=== PATIENT | female | born 1950 | race American Indian/Alaskan Native ===

== ENCOUNTER 2017-01-06 21:35 | Emergency (ER) | payer OTHER ==
[2017-01-06] MEDS ORDERED: Aspirin 81 MG Tab.Chew PO ONE (21:45)
[2017-01-06 21:57] VITALS: BP 105/85
[2017-01-06 22:18] LABS: CHLORIDE,CL 111 mmol/L (101-111); SODIUM,NA 142 mmol/L (135-145)
[2017-01-06] MEDS ORDERED: Iopamidol 612 MG/ML 75 ML Bottle IVPUSH ONE (23:00)
[2017-01-06] MEDS ORDERED: Ondansetron 4 MG/2 ML SDV IV ONE (23:38)
[2017-01-06] MEDS ORDERED: Famotidine 20 MG/2 ML SDV IVPUSH ONE (23:38)
[2017-01-06] MEDS ORDERED: Morphine 4 MG/ML Syringe IVPUSH ONE (23:38)
--- NOTE | 2017-01-07 00:11 | EDM.PDOC ---
ED HPI GENERAL MEDICAL PROBLEM - General Chief Complaint: Abdominal Pain Stated Complaint: ABD PAINS/CHEST, [id number] Time Seen by Provider: 01/06/17 22:00 Source of Information: Reports: Patient History Limitations: Reports: No Limitations - History of Present Illness INITIAL COMMENTS - FREE TEXT/NARRATIVE: Presents with c/o intermittent abdominal pain for past week, worse tonight, describes mid abdomen radiating to epigastric area, slight nausea Duration: Week(s): Location: Reports: Abdomen Quality: Reports: Ache Severity: Moderate Worsens with: Reports: Movement Epigastric Pain Score (Numeric/FACES): 10 - Related Data Allergies Allergy/AdvReac Type Severity Reaction Status Date / Time No Known Allergies Allergy Verified 01/06/17 21:53 Home Meds: Home Meds Albuterol [Proventil HFA] 2 puff INH ASDIRECTED PRN 06/28/15 [History] Nebulizer [Inspiration] 2 puff INH DAILY PRN 06/30/15 [History] Nepafenac [Nevanac] 1 drop EYERT ASDIRECTED 01/01/16 [History] Ofloxacin [Floxin 0.3% Otic Soln] 1 drop EYERT ASDIRECTED 01/01/16 [History] prednisoLONE Acetate [Pred Forte 1% Ophth Susp] 1 drop EYERT ASDIRECTED [History] Levothyroxine [Synthroid] 88 mcg PO DAILY 01/02/16 [History] Polyvinyl Alcohol/Povidone [Artificial Tears Drops] 1 drop EYEBOTH ASDIRECTED PRN 03/04/16 [History] Past Medical History HEENT History: Reports: Cataract, Impaired Vision, Other (See Below) Other HEENT History: RETINAL DETACHMENT - BILATERAL EYES; WEARS GLASSES Cardiovascular History: Reports: CAD, High Cholesterol, Hypertension Respiratory History: Reports: Asthma Gastrointestinal History: Reports: None Other Gastrointestinal History: Faatty liver Genitourinary History: Reports: None 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: Musculoskeletal History: Reports: None Neurological History: Reports: None Psychiatric History: Reports: None Endocrine/Metabolic History: Reports: Diabetes, Type II, Hypothyroidism, Obesity /BMI 30+ Hematologic History: Reports: Anemia Immunologic History: Reports: None Oncologic (Cancer) History: Reports: Other (See Below) Other Oncologic History: PRECANCEROUS CERVICAL POLYP REMOVED Dermatologic History: Reports: None - Infectious Disease History Infectious Disease History: Reports: Chicken Pox, Measles - Past Surgical History Head Surgeries/Procedures: Reports: None HEENT Surgical History: Reports: Detached Retina Respiratory Surgical History: Reports: None Female Surgical History: Reports: Tubal Ligation Neurological Surgical History: Reports: None Dermatological Surgical History: Reports: Skin Graft, Other (See Below) Social & Family History - Tobacco Use Smoking Status *Q: Light Tobacco Smoker Years of Tobacco use: 15 Packs/Tins Daily: 0.1 - Caffeine Use Caffeine Use: Reports: Coffee, Soda, Tea - Recreational Drug Use Recreational Drug Use: No Drug Use in Last 12 Months: No ED ROS GENERAL - Review of Systems Review Of Systems: See Below Constitutional: Reports: No Symptoms HEENT: Reports: No Symptoms Respiratory: Reports: No Symptoms Cardiovascular: Reports: No Symptoms GI/Abdominal: Reports: Abdominal Pain. Denies: Constipation, Diarrhea, Hematemesis, Vomiting Skin: Reports: No Symptoms Neurological: Reports: No Symptoms Psychiatric: Reports: No Symptoms ED EXAM, GI/ABD - Physical Exam Exam: See Below Exam Limited By: No Limitations General Appearance: Alert, No Apparent Distress Eyes: Bilateral: EOMI (mild sclera icterus) Ears: Normal External Exam, Normal TMs Nose: Normal Inspection Throat/Mouth: Normal Inspection Head: Atraumatic, Normocephalic Neck: Normal Inspection Respiratory/Chest: No Respiratory Distress, Lungs Clear, Normal Breath Sounds Cardiovascular: Regular Rate, Rhythm GI/Abdominal Exam: Normal Bowel Sounds, Soft, Tender, Hepatomegaly Extremities: Normal Inspection, Normal Range of Motion Neurological: Alert, Oriented, Normal Cognition, Normal Gait Psychiatric: Normal Affect, Normal Mood Skin Exam: Warm, Dry, Intact, Normal Color (no jaundice tone to skin) Course - Vital Signs Last Recorded V/S: Last Vital Signs Temp 98.2 F 01/06/17 21:54 Pulse 75 01/06/17 21:54 Resp 18 01/06/17 21:54 BP 105/85 01/06/17 21:54 Pulse Ox 97 01/06/17 21:54 - Orders/Labs/Meds Orders: Active Orders 24 hr Category Date Time Status EKG 12 Lead [EKG Documentation Completion] [RC] URGENT Care 01/06/17 21:46 Active Labs: Laboratory Tests 08/07/17 08/07/17 08/07/17 Range/Units 21:49 21:49 21:49 WBC 6.5 (5.0-10.0) 10^3/uL RBC 3.90 L (4.2-5.4) 10^6/uL Hgb 13.9 (12.0-16.0) g/dL Hct 39.1 (37.0-47.0) % MCV 100.3 H (80-100) fL MCH 35.6 H (27.0-34.0) pg MCHC 35.5 H (33.0-35.0) g/dL Plt Count 96 L (150-450) 10^3/uL Neut % (Auto) 38.6 L (42.2-75.2) % Lymph % (Auto) 40.3 (20.5-50.1) % Knox % (Auto) 12.0 H (2-8) % Eos % (Auto) 8.0 H (1.0-3.0) % Baso % (Auto) 1.1 H (0.0-1.0) % PT (9.0-12.0) SEC INR (0.9-1.2) D-Dimer, Quantitative (0-400) ng/mL Sodium 142 (135-145) mmol/L Potassium 3.2 L (3.6-5.0) mmol/L Chloride 111 (101-111) mmol/L Carbon Dioxide 22.0 (21.0-31.0) mmol/L Anion Gap 12.2 BUN 5 L (7-18) mg/dL Creatinine 0.6 (0.6-1.3) mg/dL Est Cr Clr Drug Dosing 92.11 mL/min Estimated GFR (MDRD) > 60 BUN/Creatinine Ratio 8.33 Glucose 95 (74-105) mg/dL Calcium 8.7 (8.4-10.2) mg/dl Total Bilirubin 5.2 H (0.2-1.0) mg/dL AST 59 H (10-42) IU/L ALT 26 (10-60) IU/L Alkaline Phosphatase 220 H (42-121) IU/L CK-MB (CK-2) 3.10 (0.4-4.7) ng/mL Troponin I 0.04 H* (0.00-0.02) ng/ml Total Protein 6.8 (6.7-8.2) g/dl Albumin 2.8 L (3.2-5.5) g/dl Globulin 4.0 Albumin/Globulin Ratio 0.70 Amylase 68 (28-100) U/L Lipase 61 H (22-51) U/L Urine Color (YELLOW) Urine Appearance (CLEAR) Urine pH (5.0-9.0) Ur Specific [place] (1.005-1.030) Urine Protein (NEGATIVE) Urine Glucose (UA) (NEGATIVE) Urine Ketones (NEGATIVE) Urine Occult Blood (NEGATIVE) Urine Nitrite (NEGATIVE) Urine Bilirubin (NEGATIVE) Urine Urobilinogen (0.2-1.0) mg/dL Ur Leukocyte Esterase (NEGATIVE) Urine RBC /HPF Urine WBC (0-5/HPF) /HPF Ur Epithelial Cells /HPF Urine Bacteria (0-FEW/HPF) /HPF Urine Mucus /LPF 01/06/17 01/06/17 Range/Units 21:49 23:27 WBC (5.0-10.0) 10^3/uL RBC (4.2-5.4) 10^6/uL Hgb (12.0-16.0) g/dL Hct (37.0-47.0) % MCV (80-100) fL MCH (27.0-34.0) pg MCHC (33.0-35.0) g/dL Plt Count (150-450) 10^3/uL Neut % (Auto) (42.2-75.2) % Lymph % (Auto) (20.5-50.1) % Knox % (Auto) (2-8) % Eos % (Auto) (1.0-3.0) % Baso % (Auto) (0.0-1.0) % PT 15.0 H (9.0-12.0) SEC INR 1.5 H (0.9-1.2) D-Dimer, Quantitative 3480 H (0-400) ng/mL Sodium (135-145) mmol/L Potassium (3.6-5.0) mmol/L Chloride (101-111) mmol/L Carbon Dioxide (21.0-31.0) mmol/L Anion Gap BUN (7-18) mg/dL Creatinine (0.6-1.3) mg/dL Est Cr Clr Drug Dosing mL/min Estimated GFR (MDRD) BUN/Creatinine Ratio Glucose (74-105) mg/dL Calcium (8.4-10.2) mg/dl Total Bilirubin (0.2-1.0) mg/dL AST (10-42) IU/L ALT (10-60) IU/L Alkaline Phosphatase (42-121) IU/L CK-MB (CK-2) (0.4-4.7) ng/mL Troponin I (0.00-0.02) ng/ml Total Protein (6.7-8.2) g/dl Albumin (3.2-5.5) g/dl Globulin Albumin/Globulin Ratio Amylase (28-100) U/L Lipase (22-51) U/L Urine Color Yellow (YELLOW) Urine Appearance Clear (CLEAR) Urine pH 7.0 (5.0-9.0) Ur Specific [place] 1.010 (1.005-1.030) Urine Protein Negative (NEGATIVE) Urine Glucose (UA) Negative (NEGATIVE) Urine Ketones Negative (NEGATIVE) Urine Occult Blood Negative (NEGATIVE) Urine Nitrite Negative (NEGATIVE) Urine Bilirubin Negative (NEGATIVE) Urine Urobilinogen 2.0 H (0.2-1.0) mg/dL Ur Leukocyte Esterase Negative (NEGATIVE) Urine RBC 0-5 /HPF Urine WBC 0-5 (0-5/HPF) /HPF Ur Epithelial Cells Occasional /HPF Urine Bacteria Few (0-FEW/HPF) /HPF Urine Mucus Few H /LPF Meds: Medications Discontinued Medications Generic Name Dose Route Start Last Admin Trade Name Freq PRN Reason Stop Dose Admin Aspirin 324 mg 01/06/17 21:45 01/06/17 22:00 Aspirin PO 01/06/17 21:46 324 mg ONETIME ONE Administration Famotidine 20 mg 01/06/17 23:38 01/07/17 00:06 Pepcid IVPUSH 01/06/17 23:39 20 mg ONETIME ONE Administration Hydromorphone HCl 1 mg 01/07/17 00:42 01/07/17 00:50 Dilaudid IVPUSH 01/07/17 00:43 1 mg ONETIME ONE Administration Iopamidol 75 ml 01/06/17 23:00 Isovue-300 (61%) IVPUSH 01/06/17 23:01 ONETIME ONE Morphine Sulfate 4 mg 01/06/17 23:38 01/07/17 00:05 Morphine IVPUSH 01/06/17 23:39 4 mg ONETIME ONE Administration Ondansetron HCl 4 mg 01/06/17 23:38 01/07/17 00:06 Zofran IV 01/06/17 23:39 4 mg ONETIME ONE Administration Oxycodone HCl Confirm 01/07/17 00:33 01/07/17 01:15 Oxycodone Administered 01/07/17 00:34 Not Given Dose 10 mg .ROUTE .STK-MED ONE - Radiology Interpretation Free Text/Narrative:: Moderate amount ascites, Cirrhotic liver - Re-Assessments/Exams Free Text/Narrative Re-Assessment/Exam: 01/07/17 04:[address] Delgado Burns regarding patient. Staus and labs reviewed. Recommend patient present to ED in am for further evaluation. Departure - Departure Time of Disposition: 00:13 Disposition: Home, Self-Care 01 Condition: Fair Clinical Impression: Abdominal pain Qualifiers: Abdominal location: generalized Qualified Code(s): R10.84 - Generalized abdominal pain Liver failure Qualifiers: Liver failure chronicity: unspecified chronicity Hepatic coma status: without hepatic coma Qualified Code(s): K72.90 - Hepatic failure, unspecified without coma - Discharge Information Instructions: Liver Failure Forms: ED Department Discharge - My Orders Last 24 Hours: My Active Orders 01/06/17 21:46 EKG 12 Lead [EKG Documentation Completion] [RC] URGENT - Assessment/Plan Last 24 Hours: My Active Orders 01/06/17 21:46 EKG 12 Lead [EKG Documentation Completion] [RC] URGENT
[2017-01-07] MEDS ORDERED: oxyCODONE 5 MG Tab PO ONE (00:33)
[2017-01-07] MEDS ORDERED: oxyCODONE 5 MG Tab ONE (00:33)
[2017-01-07] MEDS ORDERED: HYDROmorphone 1 MG/ML Syringe IVPUSH ONE (00:42)
--- NOTE | 2017-01-08 10:57 | EKG ---
01/06/2017- SURJIT JIMENEZ - EKG per my reading shows sinus rhythm at a rate of [address] [facility] /[id number]
== END 2017-01-07 01:16 | disposition home or self-care (01) ==
LOC: DL.ED 21:35
DX: K72.90 Hepatic failure, unspecified without coma (principal); H54.7 Unspecified visual loss; E78.00 Pure hypercholesterolemia, unspecified; I10 Essential (primary) hypertension; J45.909 Unspecified asthma, uncomplicated; E11.9 Type 2 diabetes mellitus without complications; E03.9 Hypothyroidism, unspecified; E66.9 Obesity, unspecified; F17.210 Nicotine dependence, cigarettes, uncomplicated; Z98.51 Tubal ligation status; Z79.899 Other long term (current) drug therapy
CPT/HCPCS: 36415; 71010; 74177; 80053; 81001; 82150; 82553; 83690; 84484; 85025; 85379; 85610; 93005; 93010; 96374; 96375; 99285; A9270; J1170; J2270; J2405; Q9967; 99284; S0028

== ENCOUNTER 2017-03-11 06:00 | Day surgery (SDC) | payer OTHER ==
[~2017-03-11 06:00] MED LIST: Dextrose 5%-0.45% NaCl 1,000 ML IV SCH; Sodium Chloride 0.9% 10 ML Syringe FLUSH PRN
[2017-03-11] MEDS ORDERED: Midazolam 1 MG/ML 2 ML SDV IV ONE ×3 (06:01→07:47)
[2017-03-11] MEDS ORDERED: fentaNYL 100 MCG/2 ML SDV IV ONE ×3 (06:01→07:45)
[2017-03-11] MEDS ORDERED: fentaNYL 100 MCG/2 ML SDV ONE (06:15)
[2017-03-11] MEDS ORDERED: Midazolam 1 MG/ML 2 ML SDV ONE (06:15)
--- NOTE | 2017-03-11 08:31 | OR ---
DATE: 03/11/2017 PROCEDURE: Esophagogastroduodenoscopy and multiple pinch biopsies. INSTRUMENT USED: GIF-H180 Olympus video panendoscope. PREMEDICATIONS: No oral topical anesthesia used. Fentanyl 100 mcg intravenous, Versed 1.5 mg intravenous. The procedure was done under pulse oximetry, BP recording, and personnel clerk. INDICATION: The patient with known primary biliary cholangitis with dyspepsia, unexplained, and not responsive to medical measures, on PPI. Esophagogastroduodenoscopy is performed for detection of any active erosive lesions, malignancy also under consideration, H. pylori status to be determined, any evidence of varices to be detected, endoscopic hemostasis therapy if needed. DESCRIPTION OF PROCEDURE: The scope was passed with ease. Adequate visualization of the esophagus was made from proximal to distal areas. No upper esophageal lesions identified. No distal esophageal stricture. Small uphill esophageal varices were noted without bleeding from them. No polyp or tumor mass identified. No erosive changes were noted by [place] criteria. The Z- line was seen at around 40 cm distal to the oral verge, configuration consistent with grade 1 by ZAP classification. No proximal gastric varices noted. Gastric fundus examination by retroflexion showed no polypoid lesions. No gastric ulcer, malignant mass or vascular ectasia identified. Duodenal bulb showed no ulcer. Visualized second part of the duodenum was unremarkable. Multiple pinch biopsies were taken from the gastric antrum and proximal body and sent for PyloriTek for H. pylori and if negative in an hour, tissue is to be sent for histopathology. No bleeding was noted from any of the visualized areas at the completion of the examination. Photographs were taken of the duodenal bulb, gastric antrum, fundus, and distal esophagus IMPRESSION: Small uphill distal esophageal varices. The patient tolerated the procedure well. [facility] /[id number]
--- NOTE | 2017-03-11 09:27 | LETTER ---
03/11/2017 Paula Menjivar MD [facility] [address] [place] [address] RE: JOSEY PATRICK : [address] Menjivar: Ms. Josey Patrick had esophagogastroduodenoscopy done this morning and she tolerated the procedure well. She does have small distal uphill esophageal varices. Propranolol 10 mg p.o. q.12 hours to be considered with monitor of blood pressure as well as heart rate, management of esophageal varices related to portal hypertension. I herewith send a copy of the endoscopy note and photographs for your review. Thank you. Sincerely, [facility] /[id number]
[2017-03-11 09:53] VITALS: BP 104/55
== END 2017-03-11 09:59 | disposition home or self-care (01) ==
LOC: DL.ENDO 06:00
PROVIDERS: ATTEND Internal Medicine Gastroenterology
DX: I85.00 Esophageal varices without bleeding (principal); K83.0 Cholangitis; E03.9 Hypothyroidism, unspecified; E11.9 Type 2 diabetes mellitus without complications; I10 Essential (primary) hypertension; F17.200 Nicotine dependence, unspecified, uncomplicated; E78.5 Hyperlipidemia, unspecified; J45.909 Unspecified asthma, uncomplicated; D68.8 Other specified coagulation defects; D64.9 Anemia, unspecified
CPT/HCPCS: 43239; 87077; J2250; J3010; J7042

== ENCOUNTER 2017-07-16 20:55 | Emergency (ER) | payer MEDICAID, OTHER ==
[2017-07-16 22:30] LABS: CHLORIDE,CL 102 mmol/L (101-111); SODIUM,NA 131 mmol/L (135-145)
--- NOTE | 2017-07-16 23:19 | EDM.PDOC ---
ED HPI GENERAL MEDICAL PROBLEM - General Chief Complaint: Genitourinary Problem Stated Complaint: CAME BY AMBULANCE, GENERAL Time Seen by Provider: 07/16/17 21:10 Source of Information: Reports: Patient History Limitations: Reports: No Limitations - History of Present Illness INITIAL COMMENTS - FREE TEXT/NARRATIVE: ED with c/o blood in urine that started this am. Seems worse this sandoval and last void had some burning. Hx liver failure, notes abdomen some larger. - Related Data Allergies Allergy/AdvReac Type Severity Reaction Status Date / Time acetaminophen Allergy Other Verified 03/11/17 06:41 Home Meds: Home Meds Polyvinyl Alcohol/Povidone [Artificial Tears Drops] 1 drop EYEBOTH ASDIRECTED PRN 03/04/16 [History] Albuterol [Proventil HFA] 2 puff INH Q6H PRN 03/10/17 [History] Levothyroxine [Synthroid] 1 tab PO ACBREAKFAST 03/10/17 [History] Pantoprazole Sodium 1 tab PO BIDMEALS 03/10/17 [History] Spironolactone [Aldactone] 1 tab PO DAILY 03/10/17 [History] Furosemide [Furosemide] 1 tab PO DAILY 07/16/17 [History] Past Medical History HEENT History: Reports: Cataract, Impaired Vision, Other (See Below) Other HEENT History: RETINAL DETACHMENT - BILATERAL EYES; WEARS GLASSES Cardiovascular History: Reports: CAD, High Cholesterol, Hypertension Respiratory History: Reports: Asthma Gastrointestinal History: Reports: None, Cirrhosis, Other (See Below) Other Gastrointestinal History: Faatty liver. 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 Immunologic History: Reports: None Oncologic (Cancer) History: Reports: Other (See Below) Other Oncologic History: PRECANCEROUS CERVICAL POLYP REMOVED Dermatologic History: Reports: None, Other (See Below) Other Dermatologic History: TINEA PEDIS - Infectious Disease History Infectious Disease History: Reports: Chicken Pox, Measles - Past Surgical History Head Surgeries/Procedures: Reports: None HEENT Surgical History: Reports: Detached Retina Cardiovascular Surgical History: Reports: Other (See Below) Other Cardiovascular Surgeries/Procedures: CARDIAC CATHETERIZATION Respiratory Surgical History: Reports: None GI Surgical History: Reports: Cholecystectomy, Colonoscopy, EGD Female Surgical History: Reports: Tubal Ligation Neurological Surgical History: Reports: None Musculoskeletal Surgical History: Reports: Other (See Below) Other Musculoskeletal Surgeries/Procedures:: RIGHT ANKLE SURGERY; RIGHT BUNIOECTOMY Oncologic Surgical History: Reports: None Dermatological Surgical History: Reports: Skin Graft, Other (See Below) Social & Family History - Tobacco Use Smoking Status *Q: Current Status Unknown Years of Tobacco use: 15 Packs/Tins Daily: 0.1 - Caffeine Use Caffeine Use: Reports: Coffee, Soda, Tea - Recreational Drug Use Recreational Drug Use: No Drug Use in Last 12 Months: No ED ROS GENERAL - Review of Systems Review Of Systems: See Below Constitutional: Reports: No Symptoms HEENT: Reports: No Symptoms Respiratory: Reports: No Symptoms Cardiovascular: Reports: No Symptoms GI/Abdominal: Reports: Distension. Denies: Abdominal Pain, Nausea : Reports: Dysuria ( one time), Hematuria Musculoskeletal: Reports: No Symptoms Skin: Reports: Change in Color (denies noticing any change) Neurological: Reports: No Symptoms ED EXAM, GI/ABD - Physical Exam Exam: See Below Exam Limited By: No Limitations General Appearance: Alert, No Apparent Distress Eyes: Bilateral: EOMI (Jaundice, scleral icterus) Ears: Normal TMs Nose: Normal Inspection Throat/Mouth: Normal Inspection Head: Atraumatic, Normocephalic Neck: Normal Inspection. No: Lymphadenopathy (L), Lymphadenopathy (R) Respiratory/Chest: No Respiratory Distress, Lungs Clear Cardiovascular: Normal Peripheral Pulses, Regular Rate, Rhythm GI/Abdominal Exam: Soft, Distended (slight mid aabdomen), Tender (mild with RUQ palpation). No: Normal Bowel Sounds Extremities: Normal Inspection Neurological: Alert, Oriented, Normal Cognition Psychiatric: Normal Affect Skin Exam: Warm, Dry, Intact, Jaundice Course - Vital Signs Last Recorded V/S: Last Vital Signs Temp 99.6 F 07/17/17 01:20 Pulse 75 07/17/17 01:20 Resp 16 07/17/17 01:20 BP 122/59 L 07/17/17 01:20 Pulse Ox 100 07/17/17 01:20 - Orders/Labs/Meds Orders: Active Orders 24 hr Category Date Time Status Sodium Chloride 0.9% [Normal Saline] 1,000 ml Med 07/16/17 23:17 Active IV .BOLUS Medication Orders Sodium Chloride (Normal Saline) 1,000 mls @ 125 mls/hr IV .BOLUS ONE Stop: 07/17/17 07:16 Last Admin: 07/16/17 23:44 Dose: 125 mls/hr Labs: Laboratory Tests 07/16/17 07/16/17 07/16/17 Range/Units 21:53 22:00 22:00 WBC 7.6 (5.0-10.0) 10^3/uL RBC 3.09 L (4.2-5.4) 10^6/uL Hgb 11.4 L D (12.0-16.0) g/dL Hct 32.4 L (37.0-47.0) % MCV 104.9 H D (80-100) fL MCH 36.9 H (27.0-34.0) pg MCHC 35.2 H (33.0-35.0) g/dL Plt Count 106 L (150-450) 10^3/uL Neut % (Auto) 43.6 (42.2-75.2) % Lymph % (Auto) 27.1 (20.5-50.1) % Brooke % (Auto) 13.9 H (2-8) % Eos % (Auto) 13.7 H (1.0-3.0) % Baso % (Auto) 1.7 H (0.0-1.0) % Add Manual Diff Yes Neutrophils % (Manual) 65 (42-75) % Band Neutrophils % 2 % Lymphocytes % (Manual) 21 (20-50) % Monocytes % (Manual) 6 (2-8) % Eosinophils % (Manual) 6 H (1-3) % PT 18.8 H (9.0-12.0) SEC INR 1.9 H (0.9-1.2) Sodium (135-145) mmol/L Potassium (3.6-5.0) mmol/L Chloride (101-111) mmol/L Carbon Dioxide (21.0-31.0) mmol/L Anion Gap BUN (7-18) mg/dL Creatinine (0.6-1.3) mg/dL Est Cr Clr Drug Dosing mL/min Estimated GFR (MDRD) BUN/Creatinine Ratio Glucose (74-105) mg/dL Calcium (8.4-10.2) mg/dl Total Bilirubin (0.2-1.0) mg/dL AST (10-42) IU/L ALT (10-60) IU/L Alkaline Phosphatase (42-121) IU/L Ammonia (11-35) umol/L Total Protein (6.7-8.2) g/dl Albumin (3.2-5.5) g/dl Globulin Albumin/Globulin Ratio Amylase (28-100) U/L Lipase (22-51) U/L Urine Color Red (YELLOW) Urine Appearance Turbid (CLEAR) Urine pH 6.5 (5.0-9.0) Ur Specific [place] 1.020 (1.005-1.030) Urine Protein >=300 H (NEGATIVE) Urine Glucose (UA) Negative (NEGATIVE) Urine Ketones Negative (NEGATIVE) Urine Occult Blood Large H (NEGATIVE) Urine Nitrite Negative (NEGATIVE) Urine Bilirubin Moderate H (NEGATIVE) Urine Urobilinogen >=8.0 H (0.2-1.0) mg/dL Ur Leukocyte Esterase Negative (NEGATIVE) Urine RBC Packed H /HPF Urine WBC 0-5 (0-5/HPF) /HPF Ur Epithelial Cells Moderate H /HPF Urine Bacteria Few (0-FEW/HPF) /HPF 07/16/17 07/16/17 Range/Units 22:00 22:00 WBC (5.0-10.0) 10^3/uL RBC (4.2-5.4) 10^6/uL Hgb (12.0-16.0) g/dL Hct (37.0-47.0) % MCV (80-100) fL MCH (27.0-34.0) pg MCHC (33.0-35.0) g/dL Plt Count (150-450) 10^3/uL Neut % (Auto) (42.2-75.2) % Lymph % (Auto) (20.5-50.1) % Brooke % (Auto) (2-8) % Eos % (Auto) (1.0-3.0) % Baso % (Auto) (0.0-1.0) % Add Manual Diff Neutrophils % (Manual) (42-75) % Band Neutrophils % % Lymphocytes % (Manual) (20-50) % Monocytes % (Manual) (2-8) % Eosinophils % (Manual) (1-3) % PT (9.0-12.0) SEC INR (0.9-1.2) Sodium 131 L D (135-145) mmol/L Potassium 4.0 (3.6-5.0) mmol/L Chloride 102 (101-111) mmol/L Carbon Dioxide 24.0 (21.0-31.0) mmol/L Anion Gap 9.0 BUN 6 L (7-18) mg/dL Creatinine 0.8 (0.6-1.3) mg/dL Est Cr Clr Drug Dosing 69.09 mL/min Estimated GFR (MDRD) > 60 BUN/Creatinine Ratio 7.50 Glucose 103 (74-105) mg/dL Calcium 8.8 (8.4-10.2) mg/dl Total Bilirubin 7.4 H (0.2-1.0) mg/dL AST 40 (10-42) IU/L ALT 23 (10-60) IU/L Alkaline Phosphatase 193 H (42-121) IU/L Ammonia 42 H (11-35) umol/L Total Protein 5.7 L (6.7-8.2) g/dl Albumin 2.1 L (3.2-5.5) g/dl Globulin 3.6 Albumin/Globulin Ratio 0.58 Amylase 51 (28-100) U/L Lipase 43 (22-51) U/L Urine Color (YELLOW) Urine Appearance (CLEAR) Urine pH (5.0-9.0) Ur Specific [place] (1.005-1.030) Urine Protein (NEGATIVE) Urine Glucose (UA) (NEGATIVE) Urine Ketones (NEGATIVE) Urine Occult Blood (NEGATIVE) Urine Nitrite (NEGATIVE) Urine Bilirubin (NEGATIVE) Urine Urobilinogen (0.2-1.0) mg/dL Ur Leukocyte Esterase (NEGATIVE) Urine RBC /HPF Urine WBC (0-5/HPF) /HPF Ur Epithelial Cells /HPF Urine Bacteria (0-FEW/HPF) /HPF Meds: Medications Generic Name Dose Route Start Last Admin Trade Name Freq PRN Reason Stop Dose Admin Sodium Chloride 1,000 mls @ 125 mls/hr 07/16/17 23:17 07/16/17 23:44 Normal Saline IV 07/17/17 07:16 125 mls/hr .BOLUS ONE Administration Departure - Departure Time of Disposition: 01:39 Disposition: DC/Tfer to Acute Hospital 02 Condition: Undetermined Clinical Impression: Jaundice, Liver disease Hematuria Qualifiers: Hematuria type: unspecified type Qualified Code(s): R31.9 - Hematuria, unspecified - Discharge Information Forms: ED Department Discharge - My Orders Last 24 Hours: My Active Orders 07/16/17 23:17 Sodium Chloride 0.9% [Normal Saline] 1,000 ml IV .BOLUS - Assessment/Plan Last 24 Hours: My Active Orders 07/16/17 23:17 Sodium Chloride 0.9% [Normal Saline] 1,000 ml IV .BOLUS
[2017-07-16] MEDS: Sodium Chloride 0.9% 1,000 ML IV ONE (23:44)
[2017-07-17 01:22] VITALS: BP 122/59
== END 2017-07-17 02:05 ==
LOC: DL.ED 20:55
DX: R17 Unspecified jaundice (principal); E78.00 Pure hypercholesterolemia, unspecified; I10 Essential (primary) hypertension; E11.9 Type 2 diabetes mellitus without complications; E03.9 Hypothyroidism, unspecified; Z88.6 Allergy status to analgesic agent; Z79.899 Other long term (current) drug therapy
CPT/HCPCS: 36415; 80053; 81001; 82140; 82150; 83690; 85025; 85610; 96360; 96361; 99285; J7030

== ENCOUNTER 2017-07-29 12:25 | Observation (INO) | payer MEDICAID, OTHER ==
--- NOTE | 2017-07-29 12:56 | EDM.PDOC ---
ED HPI GENERAL MEDICAL PROBLEM - General Stated Complaint: [id number] AB PAIN Time Seen by Provider: 07/29/17 12:45 Source of Information: Reports: Patient History Limitations: Reports: No Limitations - History of Present Illness INITIAL COMMENTS - FREE TEXT/NARRATIVE: This 66 yo female patient reports to the ED from home due to increased lower abdominal pain, difficulties passing urine and not feeling well. The patient reports her abdominal pain has gotten worse today since she started to have difficulties passing urine. The patient reports she was sent to [place] earlier this month with similar symptoms, but only knows that they took a blood clot out of her bladder during that visit. The patient does not know of any follow-up appointments and does not know if she is supposed to be seeing a urologist. The patient reports that she normally sees Dr. Keyes and was supposed to see him 2 months ago. The patient reports she does not know of any follow-up appointments after her visit in [place]. The patient reports she was given a script for Tramadol and has been taking 1/2 pill for her abdominal pain as needed. The patient reports she did not take any pain medications today. The patient denies any drug or ETOH use. Duration: Constant, Getting Worse Location: Reports: Abdomen (lower) Quality: Reports: Ache, Dull Severity: Moderate Improves with: Reports: None Worsens with: Reports: None Associated Symptoms: Reports: No Other Symptoms Middle Abdomen Pain Score (Numeric/FACES): 6 - Related Data Allergies Allergy/AdvReac Type Severity Reaction Status Date / Time acetaminophen Allergy Other Verified 07/29/17 12:38 Home Meds: Home Meds Polyvinyl Alcohol/Povidone [Artificial Tears Drops] 1 drop EYEBOTH ASDIRECTED PRN 03/04/16 [History] Pantoprazole Sodium 1 tab PO BIDMEALS 03/10/17 [History] Spironolactone [Aldactone] 1 tab PO DAILY 03/10/17 [History] Furosemide [Furosemide] 1 tab PO DAILY 07/16/17 [History] Hydroxypropyl Cellulose [Lacrisert] 1 each EYEBOTH DAILY 07/29/17 [History] Levothyroxine 112 mcg PO DAILY 07/29/17 [History] cycloSPORINE [Restasis] 1 drop EYEBOTH BID 07/29/17 [History] Past Medical History HEENT History: Reports: Cataract, Impaired Vision, Other (See Below) Other HEENT History: RETINAL DETACHMENT - BILATERAL EYES; WEARS GLASSES Cardiovascular History: Reports: CAD, High Cholesterol, Hypertension Respiratory History: Reports: Asthma Gastrointestinal History: Reports: None, Cirrhosis, Other (See Below) Other Gastrointestinal History: Faatty liver. 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 Immunologic History: Reports: None Oncologic (Cancer) History: Reports: Other (See Below) Other Oncologic History: PRECANCEROUS CERVICAL POLYP REMOVED Dermatologic History: Reports: None, Other (See Below) Other Dermatologic History: TINEA PEDIS - Infectious Disease History Infectious Disease History: Reports: Chicken Pox, Measles - Past Surgical History Head Surgeries/Procedures: Reports: None HEENT Surgical History: Reports: Detached Retina Cardiovascular Surgical History: Reports: Other (See Below) Other Cardiovascular Surgeries/Procedures: CARDIAC CATHETERIZATION Respiratory Surgical History: Reports: None GI Surgical History: Reports: Cholecystectomy, Colonoscopy, EGD Female Surgical History: Reports: Tubal Ligation Neurological Surgical History: Reports: None Musculoskeletal Surgical History: Reports: Other (See Below) Other Musculoskeletal Surgeries/Procedures:: RIGHT ANKLE SURGERY; RIGHT BUNIOECTOMY Oncologic Surgical History: Reports: None Dermatological Surgical History: Reports: Skin Graft, Other (See Below) Social & Family History - Tobacco Use Smoking Status *Q: Current Status Unknown Years of Tobacco use: 15 Packs/Tins Daily: 0.1 - Caffeine Use Caffeine Use: Reports: Coffee, Soda, Tea - Recreational Drug Use Recreational Drug Use: No Drug Use in Last 12 Months: No ED ROS GENERAL - Review of Systems Review Of Systems: ROS reveals no pertinent complaints other than HPI. ED EXAM, GI/ABD - Physical Exam Exam: See Below Exam Limited By: No Limitations General Appearance: Alert, WD/WN, Moderate Distress Eyes: Bilateral: Normal Appearance, EOMI Ears: Normal External Exam, Normal Canal, Hearing Grossly Normal, Normal TMs Nose: Normal Inspection, Normal Mucosa, No Blood Throat/Mouth: Normal Inspection, Normal Lips, Normal Teeth, Normal Gums, Normal Oropharynx, Normal Voice, No Airway Compromise Head: Atraumatic, Normocephalic Neck: Normal Inspection, Supple, Non-Tender, Full Range of Motion Respiratory/Chest: No Respiratory Distress, Lungs Clear, Normal Breath Sounds, No Accessory Muscle Use, Chest Non-Tender Cardiovascular: Normal Peripheral Pulses, Regular Rate, Rhythm, No Edema, No Gallop, No JVD, No Murmur, No Rub GI/Abdominal Exam: Distended (diffuse), Tender (diffuse lower abdomen) (Female) Exam: Deferred Rectal (Female) Exam: Deferred Back Exam: Normal Inspection, Full Range of Motion, NT Extremities: Normal Inspection, Normal Range of Motion, Non-Tender, Normal Capillary Refill, No Pedal Edema Neurological: Alert, Oriented, CN II-XII Intact, Normal Cognition, Normal Gait, Normal Reflexes, No Motor/Sensory Deficits Psychiatric: Depressed Mood, Flat Affect Skin Exam: Warm, Dry, Intact, No Rash, Jaundice Lymphatic: No Adenopathy Course - Vital Signs Last Recorded V/S: Last Vital Signs Temp 36.3 C 07/29/17 12:38 Pulse 88 07/29/17 15:14 Resp 18 07/29/17 15:14 BP 120/54 L 07/29/17 15:14 Pulse Ox 98 07/29/17 15:14 - Orders/Labs/Meds Orders: Active Orders 24 hr Category Date Time Status Sodium Chloride 0.9% [Normal Saline] 1,000 ml Med 07/29/17 15:23 Ordered IV .BOLUS Medication Orders Sodium Chloride (Normal Saline) 1,000 mls @ 125 mls/hr IV .BOLUS ONE Stop: 07/29/17 23:22 Labs: Laboratory Tests 07/29/17 07/29/17 07/29/17 Range/Units 12:30 12:30 12:50 WBC (5.0-10.0) 10^3/uL RBC (4.2-5.4) 10^6/uL Hgb (12.0-16.0) g/dL Hct (37.0-47.0) % MCV (80-100) fL MCH (27.0-34.0) pg MCHC (33.0-35.0) g/dL Plt Count (150-450) 10^3/uL Neut % (Auto) (42.2-75.2) % Lymph % (Auto) (20.5-50.1) % [place] % (Auto) (2-8) % Eos % (Auto) (1.0-3.0) % Baso % (Auto) (0.0-1.0) % Sodium (135-145) mmol/L Potassium (3.6-5.0) mmol/L Chloride (101-111) mmol/L Carbon Dioxide (21.0-31.0) mmol/L Anion Gap BUN (7-18) mg/dL Creatinine (0.6-1.3) mg/dL Est Cr Clr Drug Dosing mL/min Estimated GFR (MDRD) BUN/Creatinine Ratio Glucose (74-105) mg/dL Calcium (8.4-10.2) mg/dl Total Bilirubin (0.2-1.0) mg/dL AST (10-42) IU/L ALT (10-60) IU/L Alkaline Phosphatase (42-121) IU/L Ammonia (11-35) umol/L Total Protein (6.7-8.2) g/dl Albumin (3.2-5.5) g/dl Globulin Albumin/Globulin Ratio Amylase 72 (28-100) U/L Lipase 53 H (22-51) U/L Urine Color [place] (YELLOW) Urine Appearance Clear (CLEAR) Urine pH 6.0 (5.0-9.0) Ur Specific [place] 1.020 (1.005-1.030) Urine Protein Negative (NEGATIVE) Urine Glucose (UA) Negative (NEGATIVE) Urine Ketones Negative (NEGATIVE) Urine Occult Blood Trace-lysed H (NEGATIVE) Urine Nitrite Negative (NEGATIVE) Urine Bilirubin Moderate H (NEGATIVE) Urine Urobilinogen 0.2 (0.2-1.0) mg/dL Ur Leukocyte Esterase Negative (NEGATIVE) Urine RBC 0-5 /HPF Urine WBC 0-5 (0-5/HPF) /HPF Ur Epithelial Cells Occasional /HPF Urine Bacteria Few (0-FEW/HPF) /HPF Hyaline Casts Moderate H /LPF Urine Mucus Many H /LPF Salicylates 4.7 Urine Opiates Screen Negative (NEGATIVE) Ur Oxycodone Screen Negative (NEGATIVE) Urine Methadone Screen Negative (NEGATIVE) Acetaminophen < 10 Ur Barbiturates Screen Negative (NEGATIVE) U Tricyclic Antidepress Negative (NEGATIVE) Ur Phencyclidine Scrn Negative (NEGATIVE) Ur Amphetamine Screen Negative (NEGATIVE) U Methamphetamines Scrn Negative (NEGATIVE) Urine MDMA Screen Negative (NEGATIVE) U Benzodiazepines Scrn Negative (NEGATIVE) Urine Cocaine Screen Negative (NEGATIVE) U Marijuana (THC) Screen Negative (NEGATIVE) Ethyl Alcohol mg/dL 07/29/17 07/29/17 07/29/17 Range/Units 12:50 12:50 12:50 WBC 9.2 (5.0-10.0) 10^3/uL RBC 3.36 L (4.2-5.4) 10^6/uL Hgb 12.5 (12.0-16.0) g/dL Hct 34.4 L (37.0-47.0) % MCV 102.4 H (80-100) fL MCH 37.2 H (27.0-34.0) pg MCHC 36.3 H (33.0-35.0) g/dL Plt Count 49 L (150-450) 10^3/uL Neut % (Auto) 68.8 (42.2-75.2) % Lymph % (Auto) 13.6 L (20.5-50.1) % [place] % (Auto) 11.7 H (2-8) % Eos % (Auto) 5.4 H (1.0-3.0) % Baso % (Auto) 0.5 (0.0-1.0) % Sodium 122 L (135-145) mmol/L Potassium 3.9 (3.6-5.0) mmol/L Chloride 96 L (101-111) mmol/L Carbon Dioxide 20.0 L (21.0-31.0) mmol/L Anion Gap 9.9 BUN 6 L (7-18) mg/dL Creatinine 0.7 (0.6-1.3) mg/dL Est Cr Clr Drug Dosing 78.95 mL/min Estimated GFR (MDRD) > 60 BUN/Creatinine Ratio 8.57 Glucose 166 H (74-105) mg/dL Calcium 8.7 (8.4-10.2) mg/dl Total Bilirubin 8.8 H (0.2-1.0) mg/dL AST 42 (10-42) IU/L ALT 29 (10-60) IU/L Alkaline Phosphatase 299 H (42-121) IU/L Ammonia 50 H (11-35) umol/L Total Protein 6.5 L (6.7-8.2) g/dl Albumin 2.4 L (3.2-5.5) g/dl Globulin 4.1 Albumin/Globulin Ratio 0.59 Amylase (28-100) U/L Lipase (22-51) U/L Urine Color (YELLOW) Urine Appearance (CLEAR) Urine pH (5.0-9.0) Ur Specific [place] (1.005-1.030) Urine Protein (NEGATIVE) Urine Glucose (UA) (NEGATIVE) Urine Ketones (NEGATIVE) Urine Occult Blood (NEGATIVE) Urine Nitrite (NEGATIVE) Urine Bilirubin (NEGATIVE) Urine Urobilinogen (0.2-1.0) mg/dL Ur Leukocyte Esterase (NEGATIVE) Urine RBC /HPF Urine WBC (0-5/HPF) /HPF Ur Epithelial Cells /HPF Urine Bacteria (0-FEW/HPF) /HPF Hyaline Casts /LPF Urine Mucus /LPF Salicylates Urine Opiates Screen (NEGATIVE) Ur Oxycodone Screen (NEGATIVE) Urine Methadone Screen (NEGATIVE) Acetaminophen Ur Barbiturates Screen (NEGATIVE) U Tricyclic Antidepress (NEGATIVE) Ur Phencyclidine Scrn (NEGATIVE) Ur Amphetamine Screen (NEGATIVE) U Methamphetamines Scrn (NEGATIVE) Urine MDMA Screen (NEGATIVE) U Benzodiazepines Scrn (NEGATIVE) Urine Cocaine Screen (NEGATIVE) U Marijuana (THC) Screen (NEGATIVE) Ethyl Alcohol < 5 mg/dL Meds: Medications Generic Name Dose Route Start Last Admin Trade Name Freq PRN Reason Stop Dose Admin Sodium Chloride 1,000 mls @ 125 mls/hr 07/29/17 15:23 Normal Saline IV 07/29/17 23:22 .BOLUS ONE Discontinued Medications Generic Name Dose Route Start Last Admin Trade Name Freq PRN Reason Stop Dose Admin Hydromorphone HCl 0.5 mg 07/29/17 13:30 07/29/17 13:45 Dilaudid IVPUSH 07/29/17 13:31 0.5 mg ONETIME ONE Administration Iopamidol 100 ml 07/29/17 13:29 07/29/17 14:10 Isovue-300 (61%) IVPUSH 07/29/17 13:30 75 ml ONETIME ONE Administration Departure - Departure Time of Disposition: 13:32 Disposition: Admitted As Inpatient 68 Condition: Fair Clinical Impression: Hyponatremia Abdominal pain Qualifiers: Abdominal location: generalized Qualified Code(s): R10.84 - Generalized abdominal pain Ascites Qualifiers: Ascites type: other type Qualified Code(s): R18.8 - Other ascites Cirrhosis Qualifiers: Hepatic cirrhosis type: unspecified hepatic cirrhosis Ascites presence: with ascites Qualified Code(s): K74.60 - Unspecified cirrhosis of liver - Discharge Information Care Plan Goals: Discussed the examination, history, lab and CT results with Dr. Romero. Dr. Romero accepted the patient for continued evaluation and further management as an inpatient (observation) patient at [facility]. - My Orders Last 24 Hours: My Active Orders 07/29/17 15:23 Sodium Chloride 0.9% [Normal Saline] 1,000 ml IV .BOLUS - Assessment/Plan Last 24 Hours: My Active Orders 07/29/17 15:23 Sodium Chloride 0.9% [Normal Saline] 1,000 ml IV .BOLUS
[2017-07-29 13:21] LABS: ACETAMINOPHEN < 10; CHLORIDE,CL 96 mmol/L (101-111); SODIUM,NA 122 mmol/L (135-145)
[2017-07-29] MEDS ORDERED: Iopamidol 612 MG/ML 100 ML Bottle IVPUSH ONE (13:29)
[2017-07-29] MEDS ORDERED: HYDROmorphone 0.5 MG/0.5 ML Syringe IVPUSH ONE (13:30)
[2017-07-29] MEDS ORDERED: Sodium Chloride 0.9% 1,000 ML IV ONE (15:23)
[2017-07-29] MEDS ORDERED: Polyvinyl Alcohol 1.4% Ophth Soln 15 ML Bottle EYEBOTH PRN (16:59)
[2017-07-29] MEDS ORDERED: Ondansetron 4 MG/2 ML SDV IVPUSH PRN (17:00)
[2017-07-29] MEDS ORDERED: Zolpidem 5 MG Tab PO PRN (17:00)
[2017-07-29] MEDS ORDERED: Sodium Chloride 0.9% 10 ML Syringe FLUSH PRN (17:00)
[2017-07-29] MEDS ORDERED: traMADol 50 MG Tab PO PRN (17:04)
--- NOTE | 2017-07-29 17:13 | PCM.HP ---
H&P History of Present Illness - General Date of Service: 07/29/17 Admit Problem/Dx: Admission Diagnosis/Problem Admission Diagnosis/Problem Abdominal pain Source of Information: Patient, Provider - History of Present Illness Initial Comments - Free Text/Narative: The patient is a 66-year-old lady with a history of primary biliary cirrhosis, hematuria, diabetes. The patient was recently hospitalized at [facility] for hematuria. Underwent cystoscopy and bleeding was stopped. The patient was noted to have significant liver failure and has been set up with [facility] for further follow-up and evaluation for transplant. The patient has a home care provider for suggested to her today to go to the local clinic for increased lower extremity edema. The clinic wasn't available and the patient came into the emergency room. She denies confusion, no fever, she has chronic abdominal pain for which she is taking half pill of tramadol as needed The abdominal pain did not significantly change. There was no fever. She had difficulty passing during but that resolved. She does feel mildly distended abdomen and has significant lower extremity edema She was not using her compression stockings at home but was using Lasix. Middle Abdomen Pain Score (Numeric/FACES): 6 - Related Data Allergies/Adverse Reactions: Allergies Allergy/AdvReac Type Severity Reaction Status Date / Time acetaminophen Allergy Other Verified 07/29/17 16:37 Home Medications: Home Meds Polyvinyl Alcohol/Povidone [Artificial Tears Drops] 1 drop EYEBOTH ASDIRECTED PRN 03/04/16 [History] Pantoprazole Sodium 1 tab PO BIDMEALS 03/10/17 [History] Spironolactone [Aldactone] 1 tab PO DAILY 03/10/17 [History] Furosemide [Furosemide] 1 tab PO DAILY 07/16/17 [History] Hydroxypropyl Cellulose [Lacrisert] 1 each EYEBOTH DAILY 07/29/17 [History] Levothyroxine 112 mcg PO DAILY 07/29/17 [History] cycloSPORINE [Restasis] 1 drop EYEBOTH BID 07/29/17 [History] Past Medical History HEENT History: Reports: Cataract, Impaired Vision, Other (See Below) Other HEENT History: RETINAL DETACHMENT - BILATERAL EYES; WEARS GLASSES Cardiovascular History: Reports: CAD, High Cholesterol, Hypertension Respiratory History: Reports: Asthma Gastrointestinal History: Reports: None, Cirrhosis, Other (See Below) Other Gastrointestinal History: Faatty liver. 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 Immunologic History: Reports: None Oncologic (Cancer) History: Reports: Other (See Below) Other Oncologic History: PRECANCEROUS CERVICAL POLYP REMOVED Dermatologic History: Reports: None, Other (See Below) Other Dermatologic History: TINEA PEDIS - Infectious Disease History Infectious Disease History: Reports: Chicken Pox, Measles - Past Surgical History Head Surgeries/Procedures: Reports: None HEENT Surgical History: Reports: Detached Retina Cardiovascular Surgical History: Reports: Other (See Below) Other Cardiovascular Surgeries/Procedures: CARDIAC CATHETERIZATION Respiratory Surgical History: Reports: None GI Surgical History: Reports: Cholecystectomy, Colonoscopy, EGD Female Surgical History: Reports: Tubal Ligation Neurological Surgical History: Reports: None Musculoskeletal Surgical History: Reports: Other (See Below) Other Musculoskeletal Surgeries/Procedures:: RIGHT ANKLE SURGERY; RIGHT BUNIOECTOMY Oncologic Surgical History: Reports: None Dermatological Surgical History: Reports: Skin Graft, Other (See Below) Social & Family History - Family History Family Medical History: Noncontributory - Tobacco Use Smoking Status *Q: Current Every Day Smoker Years of Tobacco use: 15 Packs/Tins Daily: 0.1 - Caffeine Use Caffeine Use: Reports: Coffee, Soda, Tea - Recreational Drug Use Recreational Drug Use: No Drug Use in Last 12 Months: No H&P Review of Systems - Review of Systems: Review Of Systems: See Below General: Reports: Malaise. Denies: Fever Pulmonary: Denies: Shortness of Breath Cardiovascular: Denies: Chest Pain Gastrointestinal: Reports: Abdominal Pain. Denies: Diarrhea, Nausea Psychiatric: Denies: Confusion Exam - Exam Exam: See Below - Vital Signs Vital Signs: Last Vital Signs Temp 36.4 C 07/29/17 15:53 Pulse 78 07/29/17 15:53 Resp 20 07/29/17 15:53 BP 130/69 07/29/17 15:53 Pulse Ox 97 07/29/17 15:53 Weight: 89.086 kg - Exam Quality Assessment: Other (Appears comfortable, eating a hamburger from [employer].) General: Alert, Oriented HEENT: PERRLA Neck: Supple Lungs: Clear to Auscultation, Normal Respiratory Effort Cardiovascular: Regular Rate, Regular Rhythm GI/Abdominal Exam: Normal Bowel Sounds, Soft, No Distention, Other (Mildly diffusely tender.) Extremities: Pedal Edema (1-2+ bilateral) Neuro Extensive - Mental Status: Alert, Oriented x3, Normal Mood/Affect - Patient Data Result Diagrams: 07/29/17 12:50 07/29/17 12:50 *Q Meaningful Use (ADM) - VTE *Q VTE Criteria *Q: - Stroke *Q Stroke Criteria *Q: - AMI *Q AMI Criteria *Q: - Problem List (1) Abdominal pain SNOMED Code(s): 85619887 ICD Code: R10.9 - UNSPECIFIED ABDOMINAL PAIN Status: Acute Current Visit : Yes Qualifiers: Abdominal location: generalized Qualified Code(s): R10.84 - Generalized abdominal pain (2) Ascites SNOMED Code(s): 138229802 ICD Code: R18.8 - OTHER ASCITES Status: Acute Current Visit: Yes Qualifiers: Ascites type: other type Qualified Code(s): R18.8 - Other ascites (3) Cirrhosis SNOMED Code(s): 59986113 ICD Code: K74.60 - UNSPECIFIED CIRRHOSIS OF LIVER Status: Acute Current Visit: Yes Qualifiers: Hepatic cirrhosis type: unspecified hepatic cirrhosis Ascites presence: with ascites Qualified Code(s): K74.60 - Unspecified cirrhosis of liver (4) Hyponatremia SNOMED Code(s): 93130767 ICD Code: E87.1 - HYPO-OSMOLALITY AND HYPONATREMIA Status: Acute Current Visit: Yes (5) Jaundice SNOMED Code(s): 95900785 ICD Code: R17 - UNSPECIFIED JAUNDICE Status: Acute Current Visit: No Problem List Initiated/Reviewed/Updated: Yes Orders Last 24hrs: Active Orders 24 hr Category Date Time Status Patient Status [ADT] Routine ADT 07/29/17 17:00 Ordered Antiembolic Devices [RC] PER UNIT ROUTINE Care 07/29/17 17:02 Ordered Glucose [Blood Glucose Check, Bedside] [RC] QIDACANDBED Care 07/29/17 16:51 Active Oxygen Therapy [RC] PRN Care 07/29/17 17:00 Ordered Peripheral IV Care [RC] . DIRECTED Care 07/29/17 17:02 Ordered Up With Assistance [RC] ASDIRECTED Care 07/29/17 17:00 Ordered VTE/DVT Education [RC] PER UNIT ROUTINE Care 07/29/17 17:00 Ordered Vital Signs [RC] Q4H Care 07/29/17 17:00 Ordered 2 Gram Sodium Diet [DIET] Diet 07/29/17 Dinner Ordered BASIC METABOLIC PANEL,BMP [CHEM] AM Lab 07/30/17 05:15 Ordered CBC WITH AUTO DIFF [HEME] AM Lab 07/30/17 05:15 Ordered Furosemide [Lasix] Med 07/30/17 09:00 Ordered 1 tab PO DAILY Heparin Sodium Med 07/29/17 22:00 Ordered 5,000 units SUBCUT Q8HR Insulin Aspart [NovoLOG] Med 07/29/17 17:00 Ordered See Protocol SUBCUT TIDAC Levothyroxine Med 07/30/17 09:00 Ordered 112 mcg PO DAILY Ondansetron [Zofran] Med 07/29/17 17:00 Ordered 4 mg IVPUSH Q6H PRN Pantoprazole [ProTONIX] Med 07/29/17 18:00 Ordered 1 tab PO BIDMEALS Polyvinyl Alcohol/Povidone [Artificial Tears Drops] Med 07/29/17 16:59 Ordered 1 drop EYEBOTH ASDIRECTED PRN Sodium Chloride 0.9% [Saline Flush] Med 07/29/17 17:00 Ordered 10 ml FLUSH ASDIRECTED PRN Spironolactone Med 07/30/17 09:00 Ordered 1 tab PO DAILY Zolpidem [Ambien] Med 07/29/17 17:00 Ordered 5 mg PO BEDTIME PRN cycloSPORINE [Restasis] Med 07/29/17 21:00 Ordered 1 drop EYEBOTH BID traMADol [Ultram] Med 07/29/17 17:04 Ordered 50 mg PO Q8H PRN Antiembolic Hose [OM.PC] Per Unit Routine Oth 07/29/17 17:02 Ordered Peripheral IV Insertion Adult [OM.PC] Routine Oth 07/29/17 17:00 Ordered Saline Lock Insert [OM.PC] Routine Oth 07/29/17 17:00 Ordered Resuscitation Status Routine Resus Stat 07/29/17 17:00 Ordered Medication Orders Artificial Tears (Liquitears 1.4% Ophth Soln) 0 ml EYEBOTH ASDIRECTED PRN PRN Reason: DRY EYES Cyclosporine (Restasis) 1 each EYEBOTH BID SONIA Furosemide (Lasix) 20 mg PO DAILY SONIA Heparin Sodium (Porcine) (Heparin Sodium) 5,000 units SUBCUT Q8HR SONIA Insulin Aspart (Novolog) 0 unit SUBCUT TIDAC SONIA PRN Reason: Protocol Levothyroxine Sodium (Levothyroxine) 112 mcg PO DAILY@0600 SONIA Ondansetron HCl (Zofran) 4 mg IVPUSH Q6H PRN PRN Reason: Nausea/Vomiting Pantoprazole Sodium (Protonix) 40 mg PO BIDAC SONIA Sodium Chloride (Saline Flush) 10 ml FLUSH ASDIRECTED PRN PRN Reason: Keep Vein Open Spironolactone (Aldactone) 100 mg PO DAILY SONIA Tramadol HCl (Ultram) 50 mg PO Q8H PRN PRN Reason: abd pain Zolpidem Tartrate (Ambien) 5 mg PO BEDTIME PRN PRN Reason: Sleep Assessment/Plan Comment:: The patient is a 66-year-old lady with a history of primary biliary cirrhosis. Presented with lower extremity swelling, hyponatremia, mild to moderate ascites, The abdominal pain appears chronic. No associated fever or chills. #1 primary biliary cirrhosis with significant icterus The patient is working with her providers for a [facility] evaluation #2 abdominal pain Appears chronic There is no distended abdomen that would need paracentesis I do not think the patient has peritonitis Will continue tramadol #3 hyponatremia due to ascites and liver cirrhosis Will stop IV fluid, suggested to use fluid restriction, low sodium diet Use lower extremity compression stocking Continue Lasix and spironolactone #4 diabetes Diet-controlled Follow blood sugars, use supplemental insulin as needed #5 DVT prophylaxis will be subcutaneous heparin
[2017-07-29] MEDS: Insulin Aspart 100 Units/ML 3 ML Pen SUBCUT SCH (17:18)
[2017-07-29] MEDS: cycloSPORINE Ophth Drops U/D Box of 30 EYEBOTH SCH (21:35)
[2017-07-29] MEDS ORDERED: Heparin Sodium 5,000 Units/ML Vial SUBCUT SCH (22:00)
[2017-07-30] MEDS ORDERED: Pantoprazole 40 MG Tab.CR PO SCH (06:00)
[2017-07-30 07:03] LABS: CHLORIDE,CL 95 mmol/L (101-111); SODIUM,NA 122 mmol/L (135-145)
[2017-07-30] MEDS: Insulin Aspart 100 Units/ML 3 ML Pen SUBCUT SCH ×2 (08:14→15:12)
[2017-07-30] MEDS: cycloSPORINE Ophth Drops U/D Box of 30 EYEBOTH SCH ×2 (08:16→10:19)
[2017-07-30] MEDS ORDERED: Spironolactone 25 MG Tab PO SCH (09:00)
[2017-07-30] MEDS ORDERED: Levothyroxine 112 MCG Tab PO SCH (09:00)
[2017-07-30] MEDS ORDERED: Furosemide 20 MG Tab PO SCH (09:00)
--- NOTE | 2017-07-30 10:07 | PCM.PN ---
- General Info Date of Service: 07/30/17 Admission Dx/Problem (Free Text): Admission Diagnosis/Problem Admission Diagnosis/Problem Abdominal pain Subjective Update: She is feeling. Abdominal pain remained stable at chronic level. There is no associated nausea or vomiting. No fever or chills. No confusion. - Review of Systems General: Denies: Fever, Weakness Pulmonary: Denies: Shortness of Breath Cardiovascular: Denies: Chest Pain Gastrointestinal: Reports: Abdominal Pain (chronic, not worse) Genitourinary: Reports: Dysuria Skin: Reports: Jaundice Neurological: Denies: Confusion - Patient Data Vitals - Most Recent: Last Vital Signs Temp 36.7 C 07/30/17 07:29 Pulse 84 07/30/17 07:29 Resp 20 07/30/17 07:29 BP 115/56 L 07/30/17 07:29 Pulse Ox 97 07/30/17 07:29 Weight - Most Recent: 89.086 kg I&O - Last 24 Hours: Intake & Output 07/29/17 07/30/17 07/30/17 22:59 06:59 14:59 Intake Total 240 300 180 Balance 240 300 180 Lab Results Last 24 Hours: Laboratory Results - last 24 hr 07/29/17 07/29/17 07/30/17 Range/Units 17:01 20:51 06:25 WBC 10.8 H (5.0-10.0) 10^3/uL RBC 3.09 L (4.2-5.4) 10^6/uL Hgb 11.4 L (12.0-16.0) g/dL Hct 31.2 L (37.0-47.0) % MCV 101.0 H (80-100) fL MCH 36.9 H (27.0-34.0) pg MCHC 36.5 H (33.0-35.0) g/dL Plt Count 50 L (150-450) 10^3/uL Neut % (Auto) 52.9 (42.2-75.2) % Lymph % (Auto) 23.2 (20.5-50.1) % [place] % (Auto) 14.2 H (2-8) % Eos % (Auto) 9.2 H (1.0-3.0) % Baso % (Auto) 0.5 (0.0-1.0) % Sodium (135-145) mmol/L Potassium (3.6-5.0) mmol/L Chloride (101-111) mmol/L Carbon Dioxide (21.0-31.0) mmol/L Anion Gap BUN (7-18) mg/dL Creatinine (0.6-1.3) mg/dL Est Cr Clr Drug Dosing mL/min Estimated GFR (MDRD) Glucose (74-105) mg/dL POC Glucose 132 H 160 H (70-105) mg/dl Calcium (8.4-10.2) mg/dl 07/30/17 07/30/17 Range/Units 06:25 07:39 WBC (5.0-10.0) 10^3/uL RBC (4.2-5.4) 10^6/uL Hgb (12.0-16.0) g/dL Hct (37.0-47.0) % MCV (80-100) fL MCH (27.0-34.0) pg MCHC (33.0-35.0) g/dL Plt Count (150-450) 10^3/uL Neut % (Auto) (42.2-75.2) % Lymph % (Auto) (20.5-50.1) % [place] % (Auto) (2-8) % Eos % (Auto) (1.0-3.0) % Baso % (Auto) (0.0-1.0) % Sodium 122 L (135-145) mmol/L Potassium 4.3 (3.6-5.0) mmol/L Chloride 95 L (101-111) mmol/L Carbon Dioxide 21.0 (21.0-31.0) mmol/L Anion Gap 10.3 BUN 6 L (7-18) mg/dL Creatinine 0.5 L (0.6-1.3) mg/dL Est Cr Clr Drug Dosing 110.54 mL/min Estimated GFR (MDRD) > 60 Glucose 92 (74-105) mg/dL POC Glucose 125 H (70-105) mg/dl Calcium 8.3 L (8.4-10.2) mg/dl Med Orders - Current: Current Medications Artificial Tears (Liquitears 1.4% Ophth Soln) 0 ml EYEBOTH ASDIRECTED PRN PRN Reason: DRY EYES Cyclosporine (Restasis) 1 each EYEBOTH BID SONIA Last Admin: 07/30/17 08:16 Dose: Not Given Furosemide (Lasix) 20 mg PO DAILY [facility] Last Admin: 07/30/17 08:15 Dose: 20 mg Insulin Aspart (Novolog) 0 unit SUBCUT TIDAC [facility] PRN Reason: Protocol Last Admin: 07/30/17 08:14 Dose: Not Given Levothyroxine Sodium (Levothyroxine) 112 mcg PO DAILY@0600 [facility] Last Admin: 07/30/17 08:14 Dose: 112 mcg Ondansetron HCl (Zofran) 4 mg IVPUSH Q6H PRN PRN Reason: Nausea/Vomiting Pantoprazole Sodium (Protonix) 40 mg PO BIDAC [facility] Last Admin: 07/30/17 06:18 Dose: 40 mg Sodium Chloride (Saline Flush) 10 ml FLUSH ASDIRECTED PRN PRN Reason: Keep Vein Open Spironolactone (Aldactone) 100 mg PO DAILY [facility] Last Admin: 07/30/17 08:14 Dose: 100 mg Tramadol HCl (Ultram) 50 mg PO Q8H PRN PRN Reason: abd pain Zolpidem Tartrate (Ambien) 5 mg PO BEDTIME PRN PRN Reason: Sleep Discontinued Medications Heparin Sodium (Porcine) (Heparin Sodium) 5,000 units SUBCUT Q8HR [facility] Stop: 07/30/17 00:23 Last Admin: 07/30/17 01:14 Dose: Not Given Hydromorphone HCl (Dilaudid) 0.5 mg IVPUSH ONETIME ONE Stop: 07/29/17 13:31 Last Admin: 07/29/17 13:45 Dose: 0.5 mg Sodium Chloride (Normal Saline) 1,000 mls @ 125 mls/hr IV .BOLUS ONE Stop: 07/29/17 23:22 Last Admin: 07/29/17 15:33 Dose: 125 mls/hr Iopamidol (Isovue-300 (61%)) 100 ml IVPUSH ONETIME ONE Stop: 07/29/17 13:30 Last Admin: 07/29/17 14:10 Dose: 75 ml - Exam General: Alert, Oriented Neck: Supple Lungs: Clear to Auscultation Cardiovascular: Regular Rate, Regular Rhythm GI/Abdominal Exam: Normal Bowel Sounds, Soft, Non-Tender Extremities: Pedal Edema Skin: Warm, Dry Psy/Mental Status: Alert, Normal Affect, Normal Mood - Problem List & Annotations (1) Abdominal pain SNOMED Code(s): 25007785 Code(s): R10.9 - UNSPECIFIED ABDOMINAL PAIN Status: Acute Current Visit: Yes Qualifiers: Abdominal location: generalized Qualified Code(s): R10.84 - Generalized abdominal pain (2) Ascites SNOMED Code(s): 283128578 Code(s): R18.8 - OTHER ASCITES Status: Acute Current Visit: Yes Qualifiers: Ascites type: other type Qualified Code(s): R18.8 - Other ascites (3) Cirrhosis SNOMED Code(s): 56977772 Code(s): K74.60 - UNSPECIFIED CIRRHOSIS OF LIVER Status: Acute Current Visit: Yes Qualifiers: Hepatic cirrhosis type: unspecified hepatic cirrhosis Ascites presence: with ascites Qualified Code(s): K74.60 - Unspecified cirrhosis of liver (4) Hyponatremia SNOMED Code(s): 51730426 Code(s): E87.1 - HYPO-OSMOLALITY AND HYPONATREMIA Status: Acute Current Visit: Yes (5) Jaundice SNOMED Code(s): 43132025 Code(s): R17 - UNSPECIFIED JAUNDICE Status: Acute Current Visit: No - Problem List Review Problem List Initiated/Reviewed/Updated: Yes - My Orders Last 24 Hours: My Active Orders 07/29/17 17:04 traMADol [Ultram] 50 mg PO Q8H PRN 07/30/17 09:58 Ready for Discharge [RC] PER UNIT ROUTINE - Plan Plan:: The patient is a 66-year-old lady with a history of primary biliary cirrhosis. Presented with lower extremity swelling, hyponatremia, mild to moderate ascites, The abdominal pain appears chronic. No associated fever or chills. #1 primary biliary cirrhosis with significant icterus The patient is working with her providers for a [facility] evaluation #2 abdominal pain Appears chronic There is no distended abdomen that would need paracentesis I do not think the patient has peritonitis Will continue tramadol prn #3 hyponatremia due to ascites and liver cirrhosis discussed to use fluid restriction, low sodium diet Use lower extremity compression stocking Continue Lasix and spironolactone #4 diabetes Diet-controlled Follow blood sugars, use supplemental insulin as needed
--- NOTE | 2017-07-30 11:05 | PCM.DCSUM1 ---
Discharge Summary - Hospital Course Free Text/Narrative:: The patient is a 66-year-old lady with a history of primary biliary cirrhosis. Presented with lower extremity swelling, hyponatremia, mild to moderate ascites, The abdominal pain appears chronic. No associated fever or chills. #1 primary biliary cirrhosis with significant icterus The patient is working with her providers for a [facility] evaluation #2 abdominal pain Appears chronic There is no distended abdomen that would need paracentesis I do not think the patient has peritonitis Will continue tramadol prn #3 hyponatremia due to ascites and liver cirrhosis discussed to use fluid restriction, low sodium diet Use lower extremity compression stocking Continue Lasix and spironolactone #4 diabetes Diet-controlled Follow blood sugars, use supplemental insulin as needed - Discharge Data Discharge Date: 07/30/17 Discharge Disposition: Home, Self-Care 01 Condition: Good - Discharge Diagnosis/Problem(s) (1) Abdominal pain SNOMED Code(s): 71958038 ICD Code: R10.9 - UNSPECIFIED ABDOMINAL PAIN Status: Acute Current Visit : Yes Qualifiers: Abdominal location: generalized Qualified Code(s): R10.84 - Generalized abdominal pain (2) Ascites SNOMED Code(s): 294242236 ICD Code: R18.8 - OTHER ASCITES Status: Acute Current Visit: Yes Qualifiers: Ascites type: other type Qualified Code(s): R18.8 - Other ascites (3) Cirrhosis SNOMED Code(s): 25169327 ICD Code: K74.60 - UNSPECIFIED CIRRHOSIS OF LIVER Status: Acute Current Visit: Yes Qualifiers: Hepatic cirrhosis type: unspecified hepatic cirrhosis Ascites presence: with ascites Qualified Code(s): K74.60 - Unspecified cirrhosis of liver (4) Hyponatremia SNOMED Code(s): 98878067 ICD Code: E87.1 - HYPO-OSMOLALITY AND HYPONATREMIA Status: Acute Current Visit: Yes (5) Jaundice SNOMED Code(s): 99939313 ICD Code: R17 - UNSPECIFIED JAUNDICE Status: Acute Current Visit: No - Discharge Plan Home Medications: Home Meds Polyvinyl Alcohol/Povidone [Artificial Tears Drops] 1 drop EYEBOTH ASDIRECTED PRN 03/04/16 [History] Pantoprazole Sodium 1 tab PO BIDMEALS 03/10/17 [History] Spironolactone [Aldactone] 1 tab PO DAILY 03/10/17 [History] Furosemide 1 tab PO DAILY 07/16/17 [History] Hydroxypropyl Cellulose [Lacrisert] 1 each EYEBOTH DAILY 07/29/17 [History] Levothyroxine 112 mcg PO DAILY 07/29/17 [History] cycloSPORINE [Restasis] 1 drop EYEBOTH BID 07/29/17 [History] Insulin Aspart [NovoLOG] 0 unit SUBCUT TIDAC pen 07/30/17 [Rx] Patient Handouts: Hyponatremia, [id number], Abdominal Pain, Adult, Easy-to- Read Forms: ED Department Discharge Referrals: Connie,Alfred [Primary Care Provider] - (in 2-3 days, f/up with [facility] as being arranged) - General Info Date of Service: 07/30/17 Admission Dx/Problem (Free Text: Admission Diagnosis/Problem Admission Diagnosis/Problem Abdominal pain Subjective Update: Please see progress note from today - Patient Data Vitals - Most Recent: Last Vital Signs Temp 36.7 C 07/30/17 07:29 Pulse 84 07/30/17 07:29 Resp 20 07/30/17 07:29 BP 115/56 L 07/30/17 07:29 Pulse Ox 97 07/30/17 07:29 Weight - Most Recent: 89.086 kg I&O - Last 24 hours: Intake & Output 07/29/17 07/30/17 07/30/17 22:59 06:59 14:59 Intake Total 240 300 180 Balance 240 300 180 Lab Results - Last 24 hrs: Laboratory Results - last 24 hr 07/29/17 07/29/17 07/30/17 Range/Units 17:01 20:51 06:25 WBC 10.8 H (5.0-10.0) 10^3/uL RBC 3.09 L (4.2-5.4) 10^6/uL Hgb 11.4 L (12.0-16.0) g/dL Hct 31.2 L (37.0-47.0) % MCV 101.0 H (80-100) fL MCH 36.9 H (27.0-34.0) pg MCHC 36.5 H (33.0-35.0) g/dL Plt Count 50 L (150-450) 10^3/uL Neut % (Auto) 52.9 (42.2-75.2) % Lymph % (Auto) 23.2 (20.5-50.1) % [place] % (Auto) 14.2 H (2-8) % Eos % (Auto) 9.2 H (1.0-3.0) % Baso % (Auto) 0.5 (0.0-1.0) % Sodium (135-145) mmol/L Potassium (3.6-5.0) mmol/L Chloride (101-111) mmol/L Carbon Dioxide (21.0-31.0) mmol/L Anion Gap BUN (7-18) mg/dL Creatinine (0.6-1.3) mg/dL Est Cr Clr Drug Dosing mL/min Estimated GFR (MDRD) Glucose (74-105) mg/dL POC Glucose 132 H 160 H (70-105) mg/dl Calcium (8.4-10.2) mg/dl 07/30/17 07/30/17 Range/Units 06:25 07:39 WBC (5.0-10.0) 10^3/uL RBC (4.2-5.4) 10^6/uL Hgb (12.0-16.0) g/dL Hct (37.0-47.0) % MCV (80-100) fL MCH (27.0-34.0) pg MCHC (33.0-35.0) g/dL Plt Count (150-450) 10^3/uL Neut % (Auto) (42.2-75.2) % Lymph % (Auto) (20.5-50.1) % [place] % (Auto) (2-8) % Eos % (Auto) (1.0-3.0) % Baso % (Auto) (0.0-1.0) % Sodium 122 L (135-145) mmol/L Potassium 4.3 (3.6-5.0) mmol/L Chloride 95 L (101-111) mmol/L Carbon Dioxide 21.0 (21.0-31.0) mmol/L Anion Gap 10.3 BUN 6 L (7-18) mg/dL Creatinine 0.5 L (0.6-1.3) mg/dL Est Cr Clr Drug Dosing 110.54 mL/min Estimated GFR (MDRD) > 60 Glucose 92 (74-105) mg/dL POC Glucose 125 H (70-105) mg/dl Calcium 8.3 L (8.4-10.2) mg/dl Med Orders - Current: Current Medications Artificial Tears (Liquitears 1.4% Ophth Soln) 0 ml EYEBOTH ASDIRECTED PRN PRN Reason: DRY EYES Cyclosporine (Restasis) 1 each EYEBOTH BID [facility] Last Admin: 07/30/17 10:19 Dose: 1 drop Furosemide (Lasix) 20 mg PO DAILY [facility] Last Admin: 07/30/17 08:15 Dose: 20 mg Insulin Aspart (Novolog) 0 unit SUBCUT TIDAC [facility] PRN Reason: Protocol Last Admin: 07/30/17 08:14 Dose: Not Given Levothyroxine Sodium (Levothyroxine) 112 mcg PO DAILY@0600 [facility] Last Admin: 07/30/17 08:14 Dose: 112 mcg Ondansetron HCl (Zofran) 4 mg IVPUSH Q6H PRN PRN Reason: Nausea/Vomiting Pantoprazole Sodium (Protonix) 40 mg PO BIDAC [facility] Last Admin: 07/30/17 06:18 Dose: 40 mg Sodium Chloride (Saline Flush) 10 ml FLUSH ASDIRECTED PRN PRN Reason: Keep Vein Open Spironolactone (Aldactone) 100 mg PO DAILY [facility] Last Admin: 07/30/17 08:14 Dose: 100 mg Tramadol HCl (Ultram) 50 mg PO Q8H PRN PRN Reason: abd pain Zolpidem Tartrate (Ambien) 5 mg PO BEDTIME PRN PRN Reason: Sleep Discontinued Medications Heparin Sodium (Porcine) (Heparin Sodium) 5,000 units SUBCUT Q8HR [facility] Stop: 07/30/17 00:23 Last Admin: 07/30/17 01:14 Dose: Not Given Hydromorphone HCl (Dilaudid) 0.5 mg IVPUSH ONETIME ONE Stop: 07/29/17 13:31 Last Admin: 07/29/17 13:45 Dose: 0.5 mg Sodium Chloride (Normal Saline) 1,000 mls @ 125 mls/hr IV .BOLUS ONE Stop: 07/29/17 23:22 Last Admin: 07/29/17 15:33 Dose: 125 mls/hr Iopamidol (Isovue-300 (61%)) 100 ml IVPUSH ONETIME ONE Stop: 07/29/17 13:30 Last Admin: 07/29/17 14:10 Dose: 75 ml - Exam Physical Findings Comments:: Please see progress note from today for details *Q Meaningful Use (DIS) - VTE *Q VTE Criteria *Q: - Stroke *Q Stroke Criteria *Q: - AMI *Q AMI Criteria *Q:
[2017-07-30 11:33] VITALS: BP 116/58
== END 2017-07-30 13:55 | disposition home or self-care (01) ==
LOC: DL.ED 12:25 → UNDOADMOB 15:49 → DL.MS 15:49
PROVIDERS: ADMIT Internal Medicine; ATTEND Internal Medicine
DX: K74.5 Biliary cirrhosis, unspecified (principal); E87.1 Hypo-osmolality and hyponatremia; R18.8 Other ascites; K74.60 Unspecified cirrhosis of liver; K72.90 Hepatic failure, unspecified without coma; H33.23 Serous retinal detachment, bilateral; I25.10 Atherosclerotic heart disease of native coronary artery without angina pectoris; E78.00 Pure hypercholesterolemia, unspecified; I10 Essential (primary) hypertension; J45.909 Unspecified asthma, uncomplicated; E11.40 Type 2 diabetes mellitus with diabetic neuropathy, unspecified; E03.9 Hypothyroidism, unspecified; E66.9 Obesity, unspecified; D69.3 Immune thrombocytopenic purpura; F17.210 Nicotine dependence, cigarettes, uncomplicated; Z79.899 Other long term (current) drug therapy; Z79.4 Long term (current) use of insulin; Z88.6 Allergy status to analgesic agent; Z68.30 Body mass index [BMI] 30.0-30.9, adult; Z90.49 Acquired absence of other specified parts of digestive tract; Z98.890 Other specified postprocedural states; Z98.51 Tubal ligation status
CPT/HCPCS: 36415; 74177; 80048; 80053; 80305; 81001; 82140; 82150; 82962; 83690; 85025; 96374; 99285; A9270; G0378; G0480; J1170; J7030; Q9967

== ENCOUNTER 2017-07-31 04:06 | Emergency (ER) | payer MEDICAID ==
[2017-07-31 03:57] VITALS: BP 116/51
--- NOTE | 2017-07-31 04:03 | EDM.PDOC ---
ED HPI GENERAL MEDICAL PROBLEM - General Chief Complaint: Abdominal Pain Stated Complaint: IN BY AMBULANCE Time Seen by Provider: 07/31/17 04:10 Source of Information: Reports: Patient, EMS, RN Notes Reviewed History Limitations: Reports: No Limitations - History of Present Illness INITIAL COMMENTS - FREE TEXT/NARRATIVE: ED via [facility] with c/o of abdominal pain unrelieved by Tramadol one take one hour [employer]. Patient discharged from facility yesterday. Patient admitted observation on 07/29 for abdominal pain with complete workup. Patient discharged home with prescription for tramadol 50mg #10 Patient hx of cirrhosis and awaiting appointment at [facility]. Middle Abdomen Pain Score (Numeric/FACES): 10 - Related Data Allergies Allergy/AdvReac Type Severity Reaction Status Date / Time acetaminophen Allergy Other Verified 07/29/17 16:37 Home Meds: Home Meds Polyvinyl Alcohol/Povidone [Artificial Tears Drops] 1 drop EYEBOTH ASDIRECTED PRN 03/04/16 [History] Pantoprazole Sodium 40 mg PO BIDMEALS 03/10/17 [History] Spironolactone [Aldactone] 100 mg PO DAILY 03/10/17 [History] Furosemide 20 mg PO DAILY 07/16/17 [History] Hydroxypropyl Cellulose [Lacrisert] 1 each EYEBOTH DAILY 07/29/17 [History] Levothyroxine 112 mcg PO DAILY 07/29/17 [History] cycloSPORINE [Restasis] 1 drop EYEBOTH BID 07/29/17 [History] Past Medical History HEENT History: Reports: Cataract, Impaired Vision, Other (See Below) Other HEENT History: RETINAL DETACHMENT - BILATERAL EYES; WEARS GLASSES Cardiovascular History: Reports: CAD, High Cholesterol, Hypertension Respiratory History: Reports: Asthma Gastrointestinal History: Reports: None, Cirrhosis, Other (See Below) Other Gastrointestinal History: Faatty liver. 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 Immunologic History: Reports: None Oncologic (Cancer) History: Reports: Other (See Below) Other Oncologic History: PRECANCEROUS CERVICAL POLYP REMOVED Dermatologic History: Reports: None, Other (See Below) Other Dermatologic History: TINEA PEDIS - Infectious Disease History Infectious Disease History: Reports: Chicken Pox, Measles - Past Surgical History Head Surgeries/Procedures: Reports: None HEENT Surgical History: Reports: Detached Retina Cardiovascular Surgical History: Reports: Other (See Below) Other Cardiovascular Surgeries/Procedures: CARDIAC CATHETERIZATION Respiratory Surgical History: Reports: None GI Surgical History: Reports: Cholecystectomy, Colonoscopy, EGD Female Surgical History: Reports: Tubal Ligation Neurological Surgical History: Reports: None Musculoskeletal Surgical History: Reports: Other (See Below) Other Musculoskeletal Surgeries/Procedures:: RIGHT ANKLE SURGERY; RIGHT BUNIOECTOMY Oncologic Surgical History: Reports: None Dermatological Surgical History: Reports: Skin Graft, Other (See Below) Social & Family History - Family History Family Medical History: Noncontributory - Tobacco Use Smoking Status *Q: Current Every Day Smoker Years of Tobacco use: 15 Packs/Tins Daily: 0.1 - Caffeine Use Caffeine Use: Reports: Coffee, Soda, Tea - Recreational Drug Use Recreational Drug Use: No Drug Use in Last 12 Months: No ED ROS GENERAL - Review of Systems Review Of Systems: ROS reveals no pertinent complaints other than HPI. ED EXAM, GI/ABD - Physical Exam Exam: See Below Exam Limited By: No Limitations General Appearance: Other (Dozing, arouses easily) Eyes: Bilateral: EOMI (sceral icterus) Ears: Normal External Exam Nose: Normal Inspection Throat/Mouth: Normal Inspection Head: Atraumatic, Normocephalic Neck: Normal Inspection Respiratory/Chest: No Respiratory Distress, Lungs Clear, Normal Breath Sounds Cardiovascular: Normal Peripheral Pulses, Regular Rate, Rhythm GI/Abdominal Exam: Normal Bowel Sounds, Soft, Tender (mild mid abdomen) Extremities: Pedal Edema Neurological: Alert, Oriented, Normal Cognition Psychiatric: Flat Affect Skin Exam: Warm, Dry, Intact, Jaundice Course - Vital Signs Last Recorded V/S: Last Vital Signs Temp 99.2 F 07/31/17 03:50 Pulse 84 07/31/17 03:50 Resp 22 H 07/31/17 03:50 BP 116/51 L 07/31/17 03:50 Pulse Ox 94 L 07/31/17 03:45 - Re-Assessments/Exams Free Text/Narrative Re-Assessment/Exam: 07/31/17 04:50 Discussed realistic expectations with patient and chronic pain. Patient admits that she did not fill her prescription for Tramadol that was provided to her upon discharge from hospital. Stated that only medication she had was 2 partial 1/2 tablets of tramadol and tok those around 230 am. Patient dozing in ED. Departure - Departure Time of Disposition: 04:36 Disposition: Home, Self-Care 01 Condition: Fair Clinical Impression: Abdominal pain Qualifiers: Abdominal location: generalized Qualified Code(s): R10.84 - Generalized abdominal pain - Discharge Information Instructions: Abdominal Pain, Adult, [id number] Forms: ED Department Discharge Additional Instructions: Fill pain medications that were ordered and prescribed on hospital discharge Follow up with primary care for ongoing medication management
[2017-07-31] MEDS ORDERED: Morphine 2 MG/ML Syringe SUBCUT ONE (04:38)
== END 2017-07-31 05:24 | disposition home or self-care (01) ==
LOC: DL.ED 04:06
DX: R10.84 Generalized abdominal pain (principal); E78.00 Pure hypercholesterolemia, unspecified; I10 Essential (primary) hypertension; E03.9 Hypothyroidism, unspecified; E11.40 Type 2 diabetes mellitus with diabetic neuropathy, unspecified; F17.210 Nicotine dependence, cigarettes, uncomplicated; Z88.1 Allergy status to other antibiotic agents; Z79.899 Other long term (current) drug therapy
CPT/HCPCS: 96372; 99284; J2270

== ENCOUNTER 2017-08-28 14:02 | Emergency (ER) | payer MEDICAID ==
[2017-08-28 14:21] VITALS: BP 121/58
[2017-08-28] MEDS ORDERED: Sodium Chloride 0.9% 10 ML Syringe FLUSH PRN (14:32)
--- NOTE | 2017-08-28 14:52 | EDM.PDOC ---
<Eliza Abraham - Last Filed: 08/28/17 15:20> ED HPI GENERAL MEDICAL PROBLEM - General Chief Complaint: Respiratory Problem Stated Complaint: IN BY [facility] Time Seen by Provider: 08/28/17 14:15 Source of Information: Reports: Patient, EMS, RN, RN Notes Reviewed History Limitations: Reports: No Limitations - History of Present Illness INITIAL COMMENTS - FREE TEXT/NARRATIVE: Josey is a 66 yo F who presents today due to shortness of breath over the last 2 weeks. She has a history significant for liver cirrhosis. She is currently awaiting a liver transplant. She reports that has increased shortness of breath shortness of breath since that time especially with activity. She denies cough, fever, chest pain, or vomiting. She has noticed increased swelling to her lower extremities and has been voiding decreased amounts. She reports that she has been having normal BMs. Denies flank pain or dysuria. Onset: Gradual Duration: Week(s): (Over the last couple weeks) Location: Reports: Chest, Abdomen Severity: Moderate Improves with: Reports: Rest Worsens with: Reports: Movement Associated Symptoms: Reports: Shortness of Breath, Other (Decreased urinary output. Edema to lower legs. ) Abdomen Pain Score (Numeric/FACES): 6 - Related Data Allergies Allergy/AdvReac Type Severity Reaction Status Date / Time acetaminophen Allergy Other Verified 08/28/17 14:14 aspirin Allergy Other Verified 08/28/17 14:14 clopidogrel [From Plavix] Allergy Other Verified 08/28/17 14:14 ibuprofen Allergy Other Verified 08/28/17 14:14 Home Meds: Home Meds Polyvinyl Alcohol/Povidone [Artificial Tears Drops] 1 drop EYEBOTH BID PRN 03/04 [History] Pantoprazole Sodium 40 mg PO BIDMEALS 03/10/17 [History] Spironolactone [Aldactone] 150 mg PO DAILY 03/10/17 [History] Furosemide 60 mg PO DAILY 07/16/17 [History] Hydroxypropyl Cellulose [Lacrisert] 1 each EYEBOTH DAILY 07/29/17 [History] Levothyroxine 112 mcg PO DAILY 07/29/17 [History] cycloSPORINE [Restasis] 1 drop EYEBOTH BID 07/29/17 [History] Amoxicillin/Clavulanate K [Augmentin 875-125 MG] 1 tab PO BID 08/28/17 [History] Hydrocortisone [Hydrocortisone 2.5% Crm] 1 applic TOP QID PRN 08/28/17 [History] Ursodiol 500 mg PO BID 08/28/17 [History] traMADol [Ultram] 25 mg PO Q6HR PRN 08/28/17 [History] Past Medical History HEENT History: Reports: Cataract, Impaired Vision, Other (See Below) Other HEENT History: RETINAL DETACHMENT - BILATERAL EYES; WEARS GLASSES Cardiovascular History: Reports: CAD, High Cholesterol, Hypertension Respiratory History: Reports: Asthma, SOB Gastrointestinal History: Reports: Cirrhosis, Other (See Below) Other Gastrointestinal History: Faatty liver. 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 Immunologic History: Reports: None Oncologic (Cancer) History: Reports: Other (See Below) Other Oncologic History: PRECANCEROUS CERVICAL POLYP REMOVED Dermatologic History: Reports: Other (See Below) Other Dermatologic History: TINEA PEDIS - Infectious Disease History Infectious Disease History: Reports: Chicken Pox, Measles - Past Surgical History Head Surgeries/Procedures: Reports: None HEENT Surgical History: Reports: Detached Retina Cardiovascular Surgical History: Reports: Other (See Below) Other Cardiovascular Surgeries/Procedures: CARDIAC CATHETERIZATION Respiratory Surgical History: Reports: None GI Surgical History: Reports: Cholecystectomy, Colonoscopy, EGD Female Surgical History: Reports: Tubal Ligation Neurological Surgical History: Reports: None Musculoskeletal Surgical History: Reports: Other (See Below) Other Musculoskeletal Surgeries/Procedures:: RIGHT ANKLE SURGERY; RIGHT BUNIOECTOMY Oncologic Surgical History: Reports: None Dermatological Surgical History: Reports: Skin Graft Social & Family History - Family History Family Medical History: Noncontributory - Tobacco Use Smoking Status *Q: Former Smoker Years of Tobacco use: 15 Packs/Tins Daily: 0.1 Used Tobacco, but Quit: Yes Month/Year Tobacco Last Used: July 2017 - Caffeine Use Caffeine Use: Reports: Soda - Recreational Drug Use Recreational Drug Use: No Drug Use in Last 12 Months: No ED ROS GENERAL - Review of Systems Review Of Systems: ROS reveals no pertinent complaints other than HPI. ED EXAM, GENERAL - Physical Exam Exam: See Below Exam Limited By: No Limitations General Appearance: Alert, WD/WN, No Apparent Distress Eye Exam: Bilateral Eye: PERRL, Other (Bilateral Jaundice noted ) Ears: Normal External Exam, Normal Canal, Hearing Grossly Normal, Normal TMs Ear Exam: Bilateral Ear: Auricle Normal, Canal Normal, TM normal Nose: Normal Inspection, Normal Mucosa, No Blood Throat/Mouth: Normal Inspection, Normal Lips, Normal Teeth, Normal Gums, Normal Oropharynx, Normal Voice, No Airway Compromise Head: Atraumatic, Normocephalic Neck: Normal Inspection, Supple, Non-Tender, Full Range of Motion Respiratory/Chest: Lungs Clear, Normal Breath Sounds, No Accessory Muscle Use, Chest Non-Tender Cardiovascular: Normal Peripheral Pulses, Regular Rate, Rhythm, No Edema, No Gallop, No JVD, No Murmur, No Rub GI/Abdominal: Normal Bowel Sounds, Distended, Other (Abdomin is distended and firm. ) (Female) Exam: Deferred Rectal (Female) Exam: Deferred Back Exam: Normal Inspection, Full Range of Motion, NT Extremities: Normal Inspection, Normal Range of Motion, Non-Tender, Normal Capillary Refill, No Pedal Edema Neurological: Alert, Oriented, CN II-XII Intact, Normal Cognition, Normal Gait, Normal Reflexes, No Motor/Sensory Deficits Psychiatric: Normal Affect, Normal Mood Skin Exam: Warm, Dry, Intact, No Rash, Jaundice Lymphatic: No Adenopathy EKG INTERPRETATION EKG Date: 08/28/17 Time: 14:39 Rhythm: NSR Rate (Beats/Min): 79 Course - Vital Signs Last Recorded V/S: Last Vital Signs Temp 98.3 F 08/28/17 14:16 Pulse 87 08/28/17 14:16 Resp 20 08/28/17 14:16 BP 121/58 L 08/28/17 14:16 Pulse Ox 99 08/28/17 14:16 - Orders/Labs/Meds Orders: Active Orders 24 hr Category Date Time Status EKG Documentation Completion [RC] STAT Care 08/28/17 14:31 Active Peripheral IV Care [RC] . DIRECTED Care 08/28/17 14:32 Active Abdomen Ltd [US] Urgent Exams 08/28/17 16:11 Taken DRUG SCREEN URINE BIORAD [URCHEM] Stat Lab 08/28/17 17:41 Ordered UA W/MICROSCOPIC [URIN] Stat Lab 08/28/17 17:41 Ordered Sodium Chloride 0.9% [Saline Flush] Med 08/28/17 14:32 Active 10 ml FLUSH ASDIRECTED PRN Peripheral IV Insertion Adult [OM.PC] Stat Oth 08/28/17 14:32 Ordered Medication Orders Sodium Chloride (Saline Flush) 10 ml FLUSH ASDIRECTED PRN PRN Reason: Keep Vein Open Last Admin: 08/28/17 15:48 Dose: 10 ml Labs: Laboratory Tests 08/28/17 08/28/17 08/28/17 Range/Units 14:52 14:52 14:52 WBC 12.2 H (5.0-10.0) 10^3/uL RBC 2.97 L (4.2-5.4) 10^6/uL Hgb 11.3 L (12.0-16.0) g/dL Hct 31.2 L (37.0-47.0) % MCV 105.1 H D (80-100) fL MCH 38.0 H (27.0-34.0) pg MCHC 36.2 H (33.0-35.0) g/dL Plt Count 92 L (150-450) 10^3/uL Neut % (Auto) 42.6 (42.2-75.2) % Lymph % (Auto) 10.1 L (20.5-50.1) % [place] % (Auto) 12.8 H (2-8) % Eos % (Auto) 33.8 H (1.0-3.0) % Baso % (Auto) 0.7 (0.0-1.0) % Add Manual Diff Yes Neutrophils % (Manual) 43 (42-75) % Band Neutrophils % 4 % Lymphocytes % (Manual) 8 L (20-50) % Monocytes % (Manual) 12 H (2-8) % Eosinophils % (Manual) 33 H (1-3) % Sodium 124 L (135-145) mmol/L Potassium 4.2 (3.6-5.0) mmol/L Chloride 96 L (101-111) mmol/L Carbon Dioxide 21.0 (21.0-31.0) mmol/L Anion Gap 11.2 BUN 10 (7-18) mg/dL Creatinine 0.7 (0.6-1.3) mg/dL Est Cr Clr Drug Dosing 78.95 mL/min Estimated GFR (MDRD) > 60 BUN/Creatinine Ratio 14.28 Glucose 117 H (74-105) mg/dL Calcium 8.5 (8.4-10.2) mg/dl Total Bilirubin 7.8 H (0.2-1.0) mg/dL AST 37 (10-42) IU/L ALT 22 (10-60) IU/L Alkaline Phosphatase 217 H (42-121) IU/L Ammonia 26 (11-35) umol/L Troponin I < 0.02 (0.00-0.02) ng/ml B-Natriuretic Peptide 13 (0-100) pg/ml Total Protein 5.7 L (6.7-8.2) g/dl Albumin 2.1 L (3.2-5.5) g/dl Globulin 3.6 Albumin/Globulin Ratio 0.58 Urine Color (YELLOW) Urine Appearance (CLEAR) Urine pH (5.0-9.0) Ur Specific [place] (1.005-1.030) Urine Protein (NEGATIVE) Urine Glucose (UA) (NEGATIVE) Urine Ketones (NEGATIVE) Urine Occult Blood (NEGATIVE) Urine Nitrite (NEGATIVE) Urine Bilirubin (NEGATIVE) Urine Urobilinogen (0.2-1.0) mg/dL Ur Leukocyte Esterase (NEGATIVE) Urine RBC /HPF Urine WBC (0-5/HPF) /HPF Ur Epithelial Cells /HPF Calcium Oxalate Crystal /HPF Amorphous Sediment (0/HPF) /HPF Urine Bacteria (0-FEW/HPF) /HPF Fine Granular Casts (0/LPF) /LPF Urine Mucus /LPF Urine Yeast (0/HPF) /HPF Urine Opiates Screen (NEGATIVE) Ur Oxycodone Screen (NEGATIVE) Urine Methadone Screen (NEGATIVE) Ur Barbiturates Screen (NEGATIVE) U Tricyclic Antidepress (NEGATIVE) Ur Phencyclidine Scrn (NEGATIVE) Ur Amphetamine Screen (NEGATIVE) U Methamphetamines Scrn (NEGATIVE) Urine MDMA Screen (NEGATIVE) U Benzodiazepines Scrn (NEGATIVE) Urine Cocaine Screen (NEGATIVE) U Marijuana (THC) Screen (NEGATIVE) 03/29/18 03/29/18 Range/Units 17:41 17:41 WBC (5.0-10.0) 10^3/uL RBC (4.2-5.4) 10^6/uL Hgb (12.0-16.0) g/dL Hct (37.0-47.0) % MCV (80-100) fL MCH (27.0-34.0) pg MCHC (33.0-35.0) g/dL Plt Count (150-450) 10^3/uL Neut % (Auto) (42.2-75.2) % Lymph % (Auto) (20.5-50.1) % [place] % (Auto) (2-8) % Eos % (Auto) (1.0-3.0) % Baso % (Auto) (0.0-1.0) % Add Manual Diff Neutrophils % (Manual) (42-75) % Band Neutrophils % % Lymphocytes % (Manual) (20-50) % Monocytes % (Manual) (2-8) % Eosinophils % (Manual) (1-3) % Sodium (135-145) mmol/L Potassium (3.6-5.0) mmol/L Chloride (101-111) mmol/L Carbon Dioxide (21.0-31.0) mmol/L Anion Gap BUN (7-18) mg/dL Creatinine (0.6-1.3) mg/dL Est Cr Clr Drug Dosing mL/min Estimated GFR (MDRD) BUN/Creatinine Ratio Glucose (74-105) mg/dL Calcium (8.4-10.2) mg/dl Total Bilirubin (0.2-1.0) mg/dL AST (10-42) IU/L ALT (10-60) IU/L Alkaline Phosphatase (42-121) IU/L Ammonia (11-35) umol/L Troponin I (0.00-0.02) ng/ml B-Natriuretic Peptide (0-100) pg/ml Total Protein (6.7-8.2) g/dl Albumin (3.2-5.5) g/dl Globulin Albumin/Globulin Ratio Urine Color Dark yellow (YELLOW) Urine Appearance Slightly cloudy (CLEAR) Urine pH 6.0 (5.0-9.0) Ur Specific [place] 1.020 (1.005-1.030) Urine Protein Negative (NEGATIVE) Urine Glucose (UA) Negative (NEGATIVE) Urine Ketones Negative (NEGATIVE) Urine Occult Blood Negative (NEGATIVE) Urine Nitrite Negative (NEGATIVE) Urine Bilirubin Large H (NEGATIVE) Urine Urobilinogen 0.2 (0.2-1.0) mg/dL Ur Leukocyte Esterase Negative (NEGATIVE) Urine RBC 0-5 /HPF Urine WBC 0-5 (0-5/HPF) /HPF Ur Epithelial Cells Few /HPF Calcium Oxalate Crystal Rare /HPF Amorphous Sediment Rare (0/HPF) /HPF Urine Bacteria Rare (0-FEW/HPF) /HPF Fine Granular Casts Rare H (0/LPF) /LPF Urine Mucus Rare /LPF Urine Yeast Rare H (0/HPF) /HPF Urine Opiates Screen Negative (NEGATIVE) Ur Oxycodone Screen Negative (NEGATIVE) Urine Methadone Screen Negative (NEGATIVE) Ur Barbiturates Screen Negative (NEGATIVE) U Tricyclic Antidepress Negative (NEGATIVE) Ur Phencyclidine Scrn Negative (NEGATIVE) Ur Amphetamine Screen Negative (NEGATIVE) U Methamphetamines Scrn Negative (NEGATIVE) Urine MDMA Screen Negative (NEGATIVE) U Benzodiazepines Scrn Negative (NEGATIVE) Urine Cocaine Screen Negative (NEGATIVE) U Marijuana (THC) Screen Negative (NEGATIVE) Meds: Medications Generic Name Dose Route Start Last Admin Trade Name Freq PRN Reason Stop Dose Admin Sodium Chloride 10 ml 08/28/17 14:32 08/28/17 15:48 Saline Flush FLUSH 10 ml ASDIRECTED PRN Administration Keep Vein Open Departure - Departure Disposition: Home, Self-Care 01 Clinical Impression: SOB (shortness of breath) Ascites Qualifiers: Ascites type: other type Qualified Code(s): R18.8 - Other ascites Liver failure Qualifiers: Liver failure chronicity: unspecified chronicity Hepatic coma status: without hepatic coma Qualified Code(s): K72.90 - Hepatic failure, unspecified without coma - Discharge Information Instructions: Upper Respiratory Infection, Adult, [id number], Ascites, Shortness of Breath, Adult, [id number] Forms: ED Department Discharge Additional Instructions: Continue taking medications as directed Follow up with your primary care facility Return to the ER with any further problems - My Orders Last 24 Hours: My Active Orders 08/28/17 14:31 EKG Documentation Completion [RC] STAT 08/28/17 14:32 Peripheral IV Care [RC] . DIRECTED Sodium Chloride 0.9% [Saline Flush] 10 ml FLUSH ASDIRECTED PRN Peripheral IV Insertion Adult [OM.PC] Stat 08/28/17 16:11 Abdomen Ltd [US] Urgent 08/28/17 17:41 DRUG SCREEN URINE BIORAD [URCHEM] Stat UA W/MICROSCOPIC [URIN] Stat - Assessment/Plan Last 24 Hours: My Active Orders 08/28/17 14:31 EKG Documentation Completion [RC] STAT 08/28/17 14:32 Peripheral IV Care [RC] . DIRECTED Sodium Chloride 0.9% [Saline Flush] 10 ml FLUSH ASDIRECTED PRN Peripheral IV Insertion Adult [OM.PC] Stat 08/28/17 16:11 Abdomen Ltd [US] Urgent 08/28/17 17:41 DRUG SCREEN URINE BIORAD [URCHEM] Stat UA W/MICROSCOPIC [URIN] Stat <Korina Elkins - Last Filed: 08/28/17 18:44> Course - Radiology Interpretation Free Text/Narrative:: chest xray: New plain film abnormalities right middle lobe and left costophrenic sulcus since December 2016 See rad report Abdominal US: See Rad report - Re-Assessments/Exams Free Text/Narrative Re-Assessment/Exam: 08/28/17 18:41 A long discussion was had with the patient. She feels she is able to go home with the support of her family. Patient states she continues to take antibiotics for a pneumonia that was diagnosed by the [facility] when she was there. Patient does not appear to be in distress at this time. Patient states she will return to the ER with any further problems. Departure - Departure Time of Disposition: 18:43 Condition: Fair
[2017-08-28 15:20] LABS: CHLORIDE,CL 96 mmol/L (101-111); SODIUM,NA 124 mmol/L (135-145)
--- NOTE | 2017-08-28 16:20 | CR ---
Clinical history: 66-year-old female with chest pain reported on previous CT scan 29 July 2017 to have "subsegmental pulmonary atelectasis (versus scarring) inferior lingular lobe". Interpretation: Upright AP portable chest abnormal i.e. less than optimal inspiratory effort crowding the lung markings. New right infrahilar middle lobe atelectasis or infiltrate silhouetting the right heart border since upright AP portable chest film December 2016 (subtle new blunting of the contralateral left costophreni c sulcus). Normal cardiac silhouette without cephalization of flow or signs of alveolar edema. No lung mass or other focal lobar consolidation. No pneumothorax. CONCLUSION: New plain film abnormalities right middle lobe and left costophrenic sulcus since December 2016 (see above).
--- NOTE | 2017-08-29 11:26 | US ---
CLINICAL HISTORY: 66-year-old female with severe shortness of breath and chest pain noted to have "ri ght infrahilar middle lobe atelectasis or infiltrate with blunting of the contralateral left costophr enic sulcus" on recent chest radiograph. INTERPRETATION: Limited exam of the abdomen confirms the presence of free intraperitoneal ascitic flu id confirmed in all 4 quadrants of the abdomen, i.e., 8.14 cm ascitic volume depth (5.46 cm AP x 9.03 cm W) upper quadrant RUQ; 5.17 cm depth RLQ; 3.29 cm left lower quadrant; and 4.2 cm left upper quad rant.
--- NOTE | 2017-08-31 13:10 | EKG ---
08/28/2017 - SURJIT JIMENEZ - This 12-lead EKG shows normal sinus rhythm with no significant ST elevation or ST depression noted on this 12-lead EKG. Leads misplaced on lead II. [facility] /[id number]
== END 2017-08-28 19:00 | disposition home or self-care (01) ==
LOC: DL.ED 14:02
DX: K72.90 Hepatic failure, unspecified without coma (principal); R18.8 Other ascites; R06.02 Shortness of breath; E78.00 Pure hypercholesterolemia, unspecified; I10 Essential (primary) hypertension; E11.40 Type 2 diabetes mellitus with diabetic neuropathy, unspecified; E03.9 Hypothyroidism, unspecified; Z88.6 Allergy status to analgesic agent; Z88.8 Allergy status to other drugs, medicaments and biological substances; Z79.899 Other long term (current) drug therapy; Z87.891 Personal history of nicotine dependence
CPT/HCPCS: 36415; 71045; 76705; 80053; 80305; 81001; 82140; 83880; 84484; 85025; 93005; 99285; J7050

== ENCOUNTER 2017-09-02 22:29 | Inpatient (IN) | payer MEDICARE, OTHER ==
--- NOTE | 2017-09-02 22:54 | EDM.PDOC ---
ED HPI GENERAL MEDICAL PROBLEM - General Chief Complaint: General Stated Complaint: AMBULANCE FLUID RETENTION Time Seen by Provider: 09/02/17 22:45 Source of Information: Reports: Patient, EMS, Old Records, RN, RN Notes Reviewed History Limitations: Reports: No Limitations - History of Present Illness INITIAL COMMENTS - FREE TEXT/NARRATIVE: Josey is a 66yo F who presents to the ED per EMS due to shortness of breath. She reports that she has been short of breath for over 3 weeks. Increased shortness of breath tonight. She reports increased lower extremity edema and swelling in her stomach. She reports low grade fever at home earlier today. She has been having chills off and on. Denies cough, abd pain, nausea, chest pain, or body aches. She reports that she has been having regular BMs. Denies dysuria or flank pain. She reports that her shortness of breath gets worse with activity. Difficulty completing ADLs due to shortness of breath. Onset: Gradual (Over the last 3 weeks ) Duration: Week(s): Location: Reports: Chest, Abdomen Quality: Reports: Ache Severity: Mild Improves with: Reports: Rest Worsens with: Reports: Movement Upper Abdomen Pain Score (Numeric/FACES): 4 - Related Data Allergies Allergy/AdvReac Type Severity Reaction Status Date / Time acetaminophen Allergy Other Verified 09/02/17 22:34 aspirin Allergy Other Verified 09/02/17 22:34 clopidogrel [From Plavix] Allergy Other Verified 09/02/17 22:34 ibuprofen Allergy Other Verified 09/02/17 22:34 Home Meds: Home Meds Polyvinyl Alcohol/Povidone [Artificial Tears Drops] 1 drop EYEBOTH BID PRN 03/04 [History] Pantoprazole Sodium 40 mg PO BIDMEALS 03/10/17 [History] Spironolactone [Aldactone] 150 mg PO DAILY 03/10/17 [History] Furosemide 60 mg PO DAILY 07/16/17 [History] Hydroxypropyl Cellulose [Lacrisert] 1 each EYEBOTH DAILY 07/29/17 [History] Levothyroxine 112 mcg PO DAILY 07/29/17 [History] cycloSPORINE [Restasis] 1 drop EYEBOTH BID 07/29/17 [History] Hydrocortisone [Hydrocortisone 2.5% Crm] 1 applic TOP QID PRN 08/28/17 [History] Ursodiol 500 mg PO BID 08/28/17 [History] traMADol [Ultram] 25 mg PO Q6HR PRN 08/28/17 [History] Past Medical History HEENT History: Reports: Cataract, Impaired Vision, Other (See Below) Other HEENT History: RETINAL DETACHMENT - BILATERAL EYES; WEARS GLASSES Cardiovascular History: Reports: CAD, High Cholesterol, Hypertension Respiratory History: Reports: Asthma, SOB Gastrointestinal History: Reports: Cirrhosis, Other (See Below) Other Gastrointestinal History: Faatty liver. 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 Immunologic History: Reports: None Oncologic (Cancer) History: Reports: Other (See Below) Other Oncologic History: PRECANCEROUS CERVICAL POLYP REMOVED Dermatologic History: Reports: Other (See Below) Other Dermatologic History: TINEA PEDIS - Infectious Disease History Infectious Disease History: Reports: Chicken Pox, Measles - Past Surgical History Head Surgeries/Procedures: Reports: None HEENT Surgical History: Reports: Detached Retina Cardiovascular Surgical History: Reports: Other (See Below) Other Cardiovascular Surgeries/Procedures: CARDIAC CATHETERIZATION Respiratory Surgical History: Reports: None GI Surgical History: Reports: Cholecystectomy, Colonoscopy, EGD Female Surgical History: Reports: Tubal Ligation Neurological Surgical History: Reports: None Musculoskeletal Surgical History: Reports: Other (See Below) Other Musculoskeletal Surgeries/Procedures:: RIGHT ANKLE SURGERY; RIGHT BUNIOECTOMY Oncologic Surgical History: Reports: None Dermatological Surgical History: Reports: Skin Graft Social & Family History - Family History Family Medical History: Noncontributory - Tobacco Use Smoking Status *Q: Former Smoker Years of Tobacco use: 15 Packs/Tins Daily: 0.1 Used Tobacco, but Quit: Yes Month/Year Tobacco Last Used: July 2017 - Caffeine Use Caffeine Use: Reports: Soda - Recreational Drug Use Recreational Drug Use: No Drug Use in Last 12 Months: No ED ROS GENERAL - Review of Systems Review Of Systems: ROS reveals no pertinent complaints other than HPI. ED EXAM, GENERAL - Physical Exam Exam: See Below Exam Limited By: No Limitations General Appearance: Alert, WD/WN, No Apparent Distress Eye Exam: Bilateral Eye: PERRL, Other (Jaundice present to bilateral sclera) Ears: Normal External Exam, Normal Canal, Hearing Grossly Normal, Normal TMs Ear Exam: Bilateral Ear: Auricle Normal, Canal Normal, TM normal Nose: Normal Inspection, Normal Mucosa, No Blood Throat/Mouth: Normal Inspection, Normal Lips, Normal Teeth, Normal Gums, Normal Oropharynx, Normal Voice, No Airway Compromise Head: Atraumatic, Normocephalic Neck: Normal Inspection, Supple, Non-Tender, Full Range of Motion Respiratory/Chest: No Respiratory Distress, No Accessory Muscle Use, Chest Non- Tender, Decreased Breath Sounds (Noted to the right lower lobe. No wheezes or rhonchi noted.) Cardiovascular: Normal Peripheral Pulses, Regular Rate, Rhythm, No Edema, No Gallop, No JVD, No Murmur, No Rub GI/Abdominal: Normal Bowel Sounds, Soft, Non-Tender, No Organomegaly, No Distention, No Abnormal Bruit, No Mass (Female) Exam: Deferred Rectal (Female) Exam: Deferred Back Exam: Normal Inspection, Full Range of Motion, NT Extremities: Normal Inspection, Normal Range of Motion, Non-Tender, Normal Capillary Refill, No Pedal Edema Neurological: Alert, Oriented, CN II-XII Intact, Normal Cognition, Normal Gait, Normal Reflexes, No Motor/Sensory Deficits Psychiatric: Normal Affect, Normal Mood Skin Exam: Warm, Dry, Intact, Jaundice Lymphatic: No Adenopathy EKG INTERPRETATION EKG Date: 09/02/17 Time: 22:49 Rhythm: NSR [place]: Normal P-Wave: Present QRS: Normal ST-T: Normal QT: Normal Comparison: No Change Course - Vital Signs Last Recorded V/S: Last Vital Signs Temp 98.8 F 09/02/17 23:25 Pulse 78 09/02/17 23:25 Resp 20 09/02/17 23:25 BP 114/51 L 09/02/17 23:25 Pulse Ox 100 09/02/17 23:25 - Orders/Labs/Meds Orders: Active Orders 24 hr Category Date Time Status EKG Documentation Completion [RC] URGENT Care 09/02/17 22:39 Active CBC WITH AUTO DIFF [HEME] Urgent Lab 09/02/17 23:00 Results CULTURE BLOOD [BC] Stat Lab 09/02/17 23:00 Received CULTURE BLOOD [BC] Stat Lab 09/02/17 23:36 Ordered INFLUENZA A+B AG SCREEN [RM] Stat Lab 09/02/17 22:55 Ordered LACTIC ACID [CHEM] Stat Lab 09/02/17 23:00 Received MANUAL DIFFERENTIAL QA/NC [HEME] Urgent Lab 09/02/17 23:00 Results Levofloxacin/Dextrose 5%-Water [Levaquin in D5W 750 MG/ Med 09/02/17 23:42 Active 150 ML] 750 mg Premix Bag 1 bag IV ONETIME Blood Culture x2 Reflex Set [OM.PC] Stat Oth 09/02/17 23:36 Ordered Medication Orders Levofloxacin/Dextrose 750 mg/ (Premix) 150 mls @ 100 mls/hr IV ONETIME ONE Stop: 09/03/17 01:11 Labs: Laboratory Tests 09/02/17 09/02/17 09/02/17 Range/Units 23:00 23:00 23:00 WBC 17.6 H (5.0-10.0) 10^3/uL RBC 2.87 L (4.2-5.4) 10^6/uL Hgb 11.0 L (12.0-16.0) g/dL Hct 29.7 L (37.0-47.0) % MCV 103.5 H (80-100) fL MCH 38.3 H (27.0-34.0) pg MCHC 37.0 H (33.0-35.0) g/dL Plt Count 86 L (150-450) 10^3/uL Neut % (Auto) 42.2 (42.2-75.2) % Lymph % (Auto) 9.6 L (20.5-50.1) % [place] % (Auto) 10.6 H (2-8) % Eos % (Auto) 37.3 H (1.0-3.0) % Baso % (Auto) 0.3 (0.0-1.0) % Add Manual Diff Yes Sodium (135-145) mmol/L Potassium (3.6-5.0) mmol/L Chloride (101-111) mmol/L Carbon Dioxide (21.0-31.0) mmol/L Anion Gap BUN (7-18) mg/dL Creatinine (0.6-1.3) mg/dL Est Cr Clr Drug Dosing mL/min Estimated GFR (MDRD) BUN/Creatinine Ratio Glucose (74-105) mg/dL Calcium (8.4-10.2) mg/dl Total Bilirubin (0.2-1.0) mg/dL AST (10-42) IU/L ALT (10-60) IU/L Alkaline Phosphatase (42-121) IU/L Ammonia 15 (11-35) umol/L Troponin I (0.00-0.02) ng/ml B-Natriuretic Peptide 15 (0-100) pg/ml Total Protein (6.7-8.2) g/dl Albumin (3.2-5.5) g/dl Globulin Albumin/Globulin Ratio 09/02/17 Range/Units 23:00 WBC (5.0-10.0) 10^3/uL RBC (4.2-5.4) 10^6/uL Hgb (12.0-16.0) g/dL Hct (37.0-47.0) % MCV (80-100) fL MCH (27.0-34.0) pg MCHC (33.0-35.0) g/dL Plt Count (150-450) 10^3/uL Neut % (Auto) (42.2-75.2) % Lymph % (Auto) (20.5-50.1) % [place] % (Auto) (2-8) % Eos % (Auto) (1.0-3.0) % Baso % (Auto) (0.0-1.0) % Add Manual Diff Sodium 116 L* (135-145) mmol/L Potassium 4.1 (3.6-5.0) mmol/L Chloride 89 L (101-111) mmol/L Carbon Dioxide 24.0 (21.0-31.0) mmol/L Anion Gap 7.1 BUN 12 (7-18) mg/dL Creatinine 0.8 (0.6-1.3) mg/dL Est Cr Clr Drug Dosing 69.09 mL/min Estimated GFR (MDRD) > 60 BUN/Creatinine Ratio 15.00 Glucose 97 (74-105) mg/dL Calcium 8.6 (8.4-10.2) mg/dl Total Bilirubin 8.4 H (0.2-1.0) mg/dL AST 35 (10-42) IU/L ALT 24 (10-60) IU/L Alkaline Phosphatase 194 H (42-121) IU/L Ammonia (11-35) umol/L Troponin I < 0.02 (0.00-0.02) ng/ml B-Natriuretic Peptide (0-100) pg/ml Total Protein 5.5 L (6.7-8.2) g/dl Albumin 2.1 L (3.2-5.5) g/dl Globulin 3.4 Albumin/Globulin Ratio 0.62 Meds: Medications Generic Name Dose Route Start Last Admin Trade Name Freq PRN Reason Stop Dose Admin Levofloxacin/Dextrose 750 mg/ 150 mls @ 100 mls/hr 09/02/17 23:42 Premix IV 09/03/17 01:11 ONETIME ONE Departure - Departure Time of Disposition: 23:44 Disposition: Admitted As Inpatient 68 Condition: Good Clinical Impression: Pneumonia Qualifiers: Pneumonia type: due to unspecified organism Laterality: right Lung location: unspecified part of lung Qualified Code(s): J18.9 - Pneumonia, unspecified organism - Discharge Information Care Plan Goals: Admission discussed with Dr Romero. He has agreed to accept the patient. Labs, xray, and ekg results discussed with patient and family. Patient is in agreement with admission.
[2017-09-02 23:26] LABS: CHLORIDE,CL 89 mmol/L (101-111)
[2017-09-02 23:29] LABS: SODIUM,NA 116 mmol/L (135-145)
[2017-09-02] MEDS ORDERED: Levofloxacin/Dextrose 5%-Water 750 MG in Premix Bag 1 BAG IV ONE (23:42)
[2017-09-03] MEDS ORDERED: Ondansetron 4 MG Tab.DIS PO PRN (00:36)
[2017-09-03] MEDS ORDERED: Zolpidem 5 MG Tab PO PRN (00:36)
--- NOTE | 2017-09-03 00:54 | PCM.HP ---
H&P History of Present Illness - General Date of Service: 09/03/17 Admit Problem/Dx: Admission Diagnosis/Problem Admission Diagnosis/Problem Edema Source of Information: Patient, Provider (er) - History of Present Illness Initial Comments - Free Text/Narative: The patient is a 66-year-old lady with a history of primary biliary cirrhosis, esophageal varices, diet-controlled diabetes, thrombocytopenia, chronic hyponatremia. The patient was recently treated for Escherichia coli bacteremia. She was evaluated at the [facility] for possible transplant. She was told that she has pneumonia and Augmentin was given. She presented with increasing shortness of breath. She admits chills, subjective fever. She has developed massive lower extremity and upper extremity edema in the past few days. Remained icteric. Upper Abdomen Pain Score (Numeric/FACES): 4 - Related Data Allergies/Adverse Reactions: Allergies Allergy/AdvReac Type Severity Reaction Status Date / Time acetaminophen Allergy Other Verified 09/03/17 00:26 aspirin Allergy Other Verified 09/03/17 00:26 clopidogrel [From Plavix] Allergy Other Verified 09/03/17 00:26 ibuprofen Allergy Other Verified 09/03/17 00:26 Home Medications: Home Meds Polyvinyl Alcohol/Povidone [Artificial Tears Drops] 1 drop EYEBOTH BID PRN 03/04 [History] Pantoprazole Sodium 40 mg PO BIDMEALS 03/10/17 [History] Spironolactone [Aldactone] 150 mg PO DAILY 03/10/17 [History] Furosemide 60 mg PO DAILY 07/16/17 [History] Hydroxypropyl Cellulose [Lacrisert] 1 each EYEBOTH DAILY 07/29/17 [History] Levothyroxine 112 mcg PO DAILY 07/29/17 [History] cycloSPORINE [Restasis] 1 drop EYEBOTH BID 07/29/17 [History] Hydrocortisone [Hydrocortisone 2.5% Crm] 1 applic TOP QID PRN 08/28/17 [History] Ursodiol 500 mg PO BID 08/28/17 [History] traMADol [Ultram] 25 mg PO Q6HR PRN 08/28/17 [History] Past Medical History HEENT History: Reports: Cataract, Impaired Vision, Other (See Below) Other HEENT History: RETINAL DETACHMENT - BILATERAL EYES; WEARS GLASSES Cardiovascular History: Reports: CAD, High Cholesterol, Hypertension Respiratory History: Reports: Asthma, SOB Gastrointestinal History: Reports: Cirrhosis, Other (See Below) Other Gastrointestinal History: Faatty liver. 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 Immunologic History: Reports: None Oncologic (Cancer) History: Reports: Other (See Below) Other Oncologic History: PRECANCEROUS CERVICAL POLYP REMOVED Dermatologic History: Reports: Other (See Below) Other Dermatologic History: TINEA PEDIS - Infectious Disease History Infectious Disease History: Reports: Chicken Pox, Measles - Past Surgical History Head Surgeries/Procedures: Reports: None HEENT Surgical History: Reports: Detached Retina Cardiovascular Surgical History: Reports: Other (See Below) Other Cardiovascular Surgeries/Procedures: CARDIAC CATHETERIZATION Respiratory Surgical History: Reports: None GI Surgical History: Reports: Cholecystectomy, Colonoscopy, EGD Female Surgical History: Reports: Tubal Ligation Neurological Surgical History: Reports: None Musculoskeletal Surgical History: Reports: Other (See Below) Other Musculoskeletal Surgeries/Procedures:: RIGHT ANKLE SURGERY; RIGHT BUNIOECTOMY Oncologic Surgical History: Reports: None Dermatological Surgical History: Reports: Skin Graft Social & Family History - Family History Family Medical History: Noncontributory - Tobacco Use Smoking Status *Q: Former Smoker Years of Tobacco use: 15 Packs/Tins Daily: 0.1 Used Tobacco, but Quit: Yes Month/Year Tobacco Last Used: July 2017 - Caffeine Use Caffeine Use: Reports: Soda - Recreational Drug Use Recreational Drug Use: No Drug Use in Last 12 Months: No H&P Review of Systems - Review of Systems: Review Of Systems: See Below General: Reports: Fever (Subjective), Chills, Malaise, Weakness Pulmonary: Reports: Shortness of Breath. Denies: Wheezing, Cough, Sputum Cardiovascular: Denies: Chest Pain Gastrointestinal: Denies: Abdominal Pain Genitourinary: Denies: Dysuria Musculoskeletal: Reports: No Symptoms Skin: Reports: Pruritis, Other (Icterus) Psychiatric: Denies: Confusion Neurological: Denies: Dizziness, Headache Hematologic/Lymphatic: Reports: Easy Bruising Exam - Exam Exam: See Below - Vital Signs Vital Signs: Last Vital Signs Temp 36.7 C 09/03/17 00:33 Pulse 86 09/03/17 00:33 Resp 20 09/03/17 00:33 BP 115/46 L 09/03/17 00:33 Pulse Ox 98 09/03/17 00:33 Weight: 103.646 kg - Exam Quality Assessment: Supplemental Oxygen General: Alert, Oriented HEENT: EOMI, Other (Icterus) Neck: Supple Lungs: Normal Respiratory Effort, Decreased Breath Sounds. No: Rales, Wheezing Cardiovascular: Regular Rate, Regular Rhythm GI/Abdominal Exam: Normal Bowel Sounds, Soft, Non-Tender Extremities: Pedal Edema (Massive 3+, up to thigh in LE, present in upper extremities as well) Skin: Warm, Dry Neuro Extensive - Mental Status: Alert, Oriented x3, Normal Mood/Affect, Normal Cognition Neuro Extensive - Motor, Sensory, Reflexes: No: Tremor Psychiatric: Alert, Normal Affect, Normal Mood - Patient Data Lab Results Last 24 hrs: Laboratory Results - last 24 hr 09/02/17 09/02/17 09/02/17 Range/Units 23:00 23:00 23:00 WBC 17.6 H (5.0-10.0) 10^3/uL RBC 2.87 L (4.2-5.4) 10^6/uL Hgb 11.0 L (12.0-16.0) g/dL Hct 29.7 L (37.0-47.0) % MCV 103.5 H (80-100) fL MCH 38.3 H (27.0-34.0) pg MCHC 37.0 H (33.0-35.0) g/dL Plt Count 86 L (150-450) 10^3/uL Neut % (Auto) 42.2 (42.2-75.2) % Lymph % (Auto) 9.6 L (20.5-50.1) % [place] % (Auto) 10.6 H (2-8) % Eos % (Auto) 37.3 H (1.0-3.0) % Baso % (Auto) 0.3 (0.0-1.0) % Add Manual Diff Yes Neutrophils % (Manual) 38 L (42-75) % Lymphocytes % (Manual) 14 L (20-50) % Monocytes % (Manual) 9 H (2-8) % Eosinophils % (Manual) 39 H (1-3) % Sodium (135-145) mmol/L Potassium (3.6-5.0) mmol/L Chloride (101-111) mmol/L Carbon Dioxide (21.0-31.0) mmol/L Anion Gap BUN (7-18) mg/dL Creatinine (0.6-1.3) mg/dL Est Cr Clr Drug Dosing mL/min Estimated GFR (MDRD) BUN/Creatinine Ratio Glucose (74-105) mg/dL Lactic Acid (0.5-2.2) mmol/L Calcium (8.4-10.2) mg/dl Total Bilirubin (0.2-1.0) mg/dL AST (10-42) IU/L ALT (10-60) IU/L Alkaline Phosphatase (42-121) IU/L Ammonia 15 (11-35) umol/L Troponin I (0.00-0.02) ng/ml B-Natriuretic Peptide 15 (0-100) pg/ml Total Protein (6.7-8.2) g/dl Albumin (3.2-5.5) g/dl Globulin Albumin/Globulin Ratio 09/02/17 09/02/17 Range/Units 23:00 23:00 WBC (5.0-10.0) 10^3/uL RBC (4.2-5.4) 10^6/uL Hgb (12.0-16.0) g/dL Hct (37.0-47.0) % MCV (80-100) fL MCH (27.0-34.0) pg MCHC (33.0-35.0) g/dL Plt Count (150-450) 10^3/uL Neut % (Auto) (42.2-75.2) % Lymph % (Auto) (20.5-50.1) % [place] % (Auto) (2-8) % Eos % (Auto) (1.0-3.0) % Baso % (Auto) (0.0-1.0) % Add Manual Diff Neutrophils % (Manual) (42-75) % Lymphocytes % (Manual) (20-50) % Monocytes % (Manual) (2-8) % Eosinophils % (Manual) (1-3) % Sodium 116 L* (135-145) mmol/L Potassium 4.1 (3.6-5.0) mmol/L Chloride 89 L (101-111) mmol/L Carbon Dioxide 24.0 (21.0-31.0) mmol/L Anion Gap 7.1 BUN 12 (7-18) mg/dL Creatinine 0.8 (0.6-1.3) mg/dL Est Cr Clr Drug Dosing 69.09 mL/min Estimated GFR (MDRD) > 60 BUN/Creatinine Ratio 15.00 Glucose 97 (74-105) mg/dL Lactic Acid 1.3 (0.5-2.2) mmol/L Calcium 8.6 (8.4-10.2) mg/dl Total Bilirubin 8.4 H (0.2-1.0) mg/dL AST 35 (10-42) IU/L ALT 24 (10-60) IU/L Alkaline Phosphatase 194 H (42-121) IU/L Ammonia (11-35) umol/L Troponin I < 0.02 (0.00-0.02) ng/ml B-Natriuretic Peptide (0-100) pg/ml Total Protein 5.5 L (6.7-8.2) g/dl Albumin 2.1 L (3.2-5.5) g/dl Globulin 3.4 Albumin/Globulin Ratio 0.62 Result Diagrams: 09/02/17 23:00 09/02/17 23:00 Yang Results Last 24 hrs: Microbiology 09/02/17 22:55 Influenza Type A Antigen Screen - Final Nasal, Unspecified NEGATIVE INFLUENZA A VIRUS AG Influenza Type B Antigen Screen - Final NEGATIVE INFLUENZA B VIRUS AG Imaging Impressions Last 24 hrs: Chest x-ray per my reading shows a large right sided opacity, likely pleural effusion. Problem List Initiated/Reviewed/Updated: Yes Orders Last 24hrs: Active Orders 24 hr Category Date Time Status Patient Status [ADT] Routine ADT 09/03/17 00:36 Ordered EKG Documentation Completion [RC] URGENT Care 09/02/17 22:39 Active Oxygen Therapy [RC] PRN Care 09/03/17 00:36 Ordered Peripheral IV Care [RC] . DIRECTED Care 09/03/17 00:39 Ordered Up With Assistance [RC] ASDIRECTED Care 09/03/17 00:36 Ordered VTE/DVT Education [RC] PER UNIT ROUTINE Care 09/03/17 00:36 Ordered Vital Signs [RC] Q4H Care 09/03/17 00:36 Ordered Fluid Restriction [DIET] Diet 09/03/17 Breakfast Ordered Regular Diet [DIET] Diet 09/03/17 Breakfast Active BASIC METABOLIC PANEL,BMP [CHEM] AM Lab 09/03/17 05:11 Ordered BASIC METABOLIC PANEL,BMP [CHEM] AM Lab 09/04/17 05:11 Ordered CBC WITH AUTO DIFF [HEME] AM Lab 09/03/17 05:11 Ordered CBC WITH AUTO DIFF [HEME] AM Lab 09/04/17 05:11 Ordered CULTURE BLOOD [BC] Stat Lab 09/02/17 23:00 Received CULTURE BLOOD [BC] Stat Lab 09/02/17 23:55 Received CULTURE SPUTUM + SMEAR [RM] Routine Lab 09/03/17 00:32 Ordered INFLUENZA A+B AG SCREEN [RM] Stat Lab 09/02/17 22:55 Ordered Furosemide [Lasix] Med 09/03/17 00:45 Ordered 40 mg IVPUSH .Q8H Heparin Sodium Med 09/03/17 06:00 Ordered 5,000 units SUBCUT Q8HR Levofloxacin/Dextrose 5%-Water [Levaquin in D5W 750 MG/ Med 09/02/17 23:42 Active 150 ML] 750 mg Premix Bag 1 bag IV ONETIME Levofloxacin/Dextrose 5%-Water [Levaquin in D5W 750 MG/ Med 09/04/17 00:45 Ordered 150 ML] 750 mg Premix Bag 1 bag IV Q24H Levothyroxine Med 09/03/17 09:00 Ordered 112 mcg PO DAILY Ondansetron [Zofran ODT] Med 09/03/17 00:36 Ordered 4 mg PO Q4H PRN Pantoprazole [ProTONIX] Med 09/03/17 08:00 Ordered 40 mg PO BIDMEALS Sodium Chloride 0.9% [Saline Flush] Med 09/03/17 00:36 Ordered 10 ml FLUSH ASDIRECTED PRN Spironolactone Med 09/03/17 09:00 Ordered 150 mg PO DAILY Ursodiol [Ursodiol] Med 09/03/17 09:00 Ordered 500 mg PO BID Vancomycin Pharmacy to Dose [Pharmacy to Dose - Med 09/03/17 00:45 Ordered Vancomycin] 1 dose .XX ASDIRECTED Zolpidem [Ambien] Med 09/03/17 00:36 Ordered 5 mg PO BEDTIME PRN cycloSPORINE [Restasis] Med 09/03/17 09:00 Ordered 1 drop EYEBOTH BID traMADol [Ultram] Med 09/03/17 00:33 Ordered 25 mg PO Q6HR PRN Antiembolic Hose [OM.PC] Per Unit Routine Oth 09/03/17 00:38 Ordered Blood Culture x2 Reflex Set [OM.PC] Stat Oth 09/02/17 23:36 Ordered Peripheral IV Insertion Adult [OM.PC] Routine Oth 09/03/17 00:36 Ordered Saline Lock Insert [OM.PC] Routine Oth 09/03/17 00:36 Ordered Resuscitation Status Routine Resus Stat 09/03/17 00:36 Ordered Medication Orders Cyclosporine (Restasis) each EYEBOTH BID SONIA Furosemide (Lasix) 40 mg IVPUSH .Q8H SONIA Heparin Sodium (Porcine) (Heparin Sodium) 5,000 units SUBCUT Q8HR SONIA Levofloxacin/Dextrose 750 mg/ (Premix) 150 mls @ 100 mls/hr IV ONETIME ONE Stop: 09/03/17 01:11 Last Admin: 09/02/17 23:48 Dose: 100 mls/hr Levofloxacin/Dextrose 750 mg/ (Premix) 150 mls @ 100 mls/hr IV Q24H SONIA Levothyroxine Sodium (Levothyroxine) 112 mcg PO DAILY SONIA Non-Formulary Medication (Spironolactone) 150 mg PO DAILY SONIA Non-Formulary Medication (Ursodiol [Ursodiol]) 500 mg PO BID SONIA Ondansetron HCl (Zofran Odt) 4 mg PO Q4H PRN PRN Reason: nausea, able to take PO Pantoprazole Sodium (Protonix) 40 mg PO BIDMEALS SONIA Sodium Chloride (Saline Flush) 10 ml FLUSH ASDIRECTED PRN PRN Reason: Keep Vein Open Tramadol HCl (Ultram) 25 mg PO Q6HR PRN PRN Reason: Pain Vancomycin HCl (Pharmacy To Dose - Vancomycin) 1 dose .XX ASDIRECTED SONIA Zolpidem Tartrate (Ambien) 5 mg PO BEDTIME PRN PRN Reason: Sleep Assessment/Plan Comment:: 66-year-old lady with a history of decompensated primary biliary cirrhosis, potential transplant candidate. Presented with leukocytosis, subjective fever, chills. Shortness of breath with Massive edema with pleural effusion. #1 possible pneumonia, possible bacteremia In an immunocompromised patient with cirrhosis Recent multiple health care facility exposure, possible gram-negative pneumonia or bacteremia. With recent 2 weeks of Zosyn treatment for Escherichia coli bacteremia We will obtain blood culture, sputum culture, urine analysis and culture Empirically treat with levofloxacin and vancomycin #2 massive fluid overload Likely due to decompensated primary biliary cirrhosis Last echocardiogram May 2017 showed good ejection fraction Hypoalbuminemia might play a role I will give the patient IV Lasix, continue spironolactone Fluid restriction Follow electrolytes and weight #3 severe hyponatremia Likely due to massive fluid overload We'll follow with diuretics Fluid restriction #4 thrombocytopenia Consider to cirrhosis We'll follow #5 diet-controlled diabetes #6 DVT prophylaxis will be subcutaneous heparin Follow platelet counts
[2017-09-03] MEDS: Furosemide 40 MG/4 ML VIAL IVPUSH SCH ×3 (01:40→17:25)
[2017-09-03] MEDS: Heparin Sodium 5,000 Units/ML Vial SUBCUT SCH ×3 (05:32→21:43)
[2017-09-03 07:00] LABS: CHLORIDE,CL 89 mmol/L (101-111)
[2017-09-03 07:03] LABS: SODIUM,NA 119 mmol/L (135-145)
[2017-09-03] MEDS: cycloSPORINE Ophth Drops U/D Box of 30 EYEBOTH SCH ×2 (08:49→21:46)
[2017-09-03] MEDS: Spironolactone 25 MG Tab PO SCH (08:49)
[2017-09-03] MEDS: Pantoprazole 40 MG Tab.CR PO SCH ×2 (08:49→17:25)
[2017-09-03] MEDS: Levothyroxine 112 MCG Tab PO SCH (08:49)
[2017-09-03] MEDS: traMADol 50 MG Tab PO PRN ×2 (08:51→20:31)
--- NOTE | 2017-09-03 11:02 | PCM.PN ---
- General Info Date of Service: 09/03/17 Admission Dx/Problem (Free Text): Admission Diagnosis/Problem Admission Diagnosis/Problem Edema Functional Status: Reports: Pain Controlled, Tolerating Diet - Review of Systems General: Reports: Chills. Denies: Fever Pulmonary: Reports: Shortness of Breath Cardiovascular: Denies: Chest Pain Gastrointestinal: Denies: Abdominal Pain Genitourinary: Denies: Dysuria Neurological: Denies: Confusion Psychiatric: Denies: Anxiety, Agitation, Hallucinations - Patient Data Vitals - Most Recent: Last Vital Signs Temp 36.5 C 09/03/17 07:49 Pulse 90 09/03/17 07:49 Resp 20 09/03/17 07:49 BP 90/38 L 09/03/17 07:49 Pulse Ox 98 09/03/17 07:49 Weight - Most Recent: 103.646 kg I&O - Last 24 Hours: Intake & Output 09/02/17 09/03/17 09/03/17 22:59 06:59 14:59 Intake Total 500 Output Total 1850 Balance -1350 Lab Results Last 24 Hours: Laboratory Results - last 24 hr 09/02/17 09/02/17 09/02/17 Range/Units 23:00 23:00 23:00 WBC 17.6 H (5.0-10.0) 10^3/uL RBC 2.87 L (4.2-5.4) 10^6/uL Hgb 11.0 L (12.0-16.0) g/dL Hct 29.7 L (37.0-47.0) % MCV 103.5 H (80-100) fL MCH 38.3 H (27.0-34.0) pg MCHC 37.0 H (33.0-35.0) g/dL Plt Count 86 L (150-450) 10^3/uL Neut % (Auto) 42.2 (42.2-75.2) % Lymph % (Auto) 9.6 L (20.5-50.1) % [place] % (Auto) 10.6 H (2-8) % Eos % (Auto) 37.3 H (1.0-3.0) % Baso % (Auto) 0.3 (0.0-1.0) % Add Manual Diff Yes Neutrophils % (Manual) 38 L (42-75) % Lymphocytes % (Manual) 14 L (20-50) % Monocytes % (Manual) 9 H (2-8) % Eosinophils % (Manual) 39 H (1-3) % Sodium (135-145) mmol/L Potassium (3.6-5.0) mmol/L Chloride (101-111) mmol/L Carbon Dioxide (21.0-31.0) mmol/L Anion Gap BUN (7-18) mg/dL Creatinine (0.6-1.3) mg/dL Est Cr Clr Drug Dosing mL/min Estimated GFR (MDRD) BUN/Creatinine Ratio Glucose (74-105) mg/dL Lactic Acid (0.5-2.2) mmol/L Calcium (8.4-10.2) mg/dl Total Bilirubin (0.2-1.0) mg/dL AST (10-42) IU/L ALT (10-60) IU/L Alkaline Phosphatase (42-121) IU/L Ammonia 15 (11-35) umol/L Troponin I (0.00-0.02) ng/ml B-Natriuretic Peptide 15 (0-100) pg/ml Total Protein (6.7-8.2) g/dl Albumin (3.2-5.5) g/dl Globulin Albumin/Globulin Ratio 09/02/17 09/02/17 09/03/17 Range/Units 23:00 23:00 06:16 WBC 14.9 H (5.0-10.0) 10^3/uL RBC 2.80 L (4.2-5.4) 10^6/uL Hgb 10.7 L (12.0-16.0) g/dL Hct 29.0 L (37.0-47.0) % MCV 103.6 H (80-100) fL MCH 38.2 H (27.0-34.0) pg MCHC 36.9 H (33.0-35.0) g/dL Plt Count 84 L (150-450) 10^3/uL Neut % (Auto) 39.0 L (42.2-75.2) % Lymph % (Auto) 9.2 L (20.5-50.1) % [place] % (Auto) 10.1 H (2-8) % Eos % (Auto) 41.2 H (1.0-3.0) % Baso % (Auto) 0.5 (0.0-1.0) % Add Manual Diff Neutrophils % (Manual) (42-75) % Lymphocytes % (Manual) (20-50) % Monocytes % (Manual) (2-8) % Eosinophils % (Manual) (1-3) % Sodium 116 L* (135-145) mmol/L Potassium 4.1 (3.6-5.0) mmol/L Chloride 89 L (101-111) mmol/L Carbon Dioxide 24.0 (21.0-31.0) mmol/L Anion Gap 7.1 BUN 12 (7-18) mg/dL Creatinine 0.8 (0.6-1.3) mg/dL Est Cr Clr Drug Dosing 69.09 mL/min Estimated GFR (MDRD) > 60 BUN/Creatinine Ratio 15.00 Glucose 97 (74-105) mg/dL Lactic Acid 1.3 (0.5-2.2) mmol/L Calcium 8.6 (8.4-10.2) mg/dl Total Bilirubin 8.4 H (0.2-1.0) mg/dL AST 35 (10-42) IU/L ALT 24 (10-60) IU/L Alkaline Phosphatase 194 H (42-121) IU/L Ammonia (11-35) umol/L Troponin I < 0.02 (0.00-0.02) ng/ml B-Natriuretic Peptide (0-100) pg/ml Total Protein 5.5 L (6.7-8.2) g/dl Albumin 2.1 L (3.2-5.5) g/dl Globulin 3.4 Albumin/Globulin Ratio 0.62 04/04/18 Range/Units 06:16 WBC (5.0-10.0) 10^3/uL RBC (4.2-5.4) 10^6/uL Hgb (12.0-16.0) g/dL Hct (37.0-47.0) % MCV (80-100) fL MCH (27.0-34.0) pg MCHC (33.0-35.0) g/dL Plt Count (150-450) 10^3/uL Neut % (Auto) (42.2-75.2) % Lymph % (Auto) (20.5-50.1) % [place] % (Auto) (2-8) % Eos % (Auto) (1.0-3.0) % Baso % (Auto) (0.0-1.0) % Add Manual Diff Neutrophils % (Manual) (42-75) % Lymphocytes % (Manual) (20-50) % Monocytes % (Manual) (2-8) % Eosinophils % (Manual) (1-3) % Sodium 119 L (135-145) mmol/L Potassium 3.9 (3.6-5.0) mmol/L Chloride 89 L (101-111) mmol/L Carbon Dioxide 24.0 (21.0-31.0) mmol/L Anion Gap 9.9 BUN 11 (7-18) mg/dL Creatinine 0.7 (0.6-1.3) mg/dL Est Cr Clr Drug Dosing 78.95 mL/min Estimated GFR (MDRD) > 60 BUN/Creatinine Ratio Glucose 71 L (74-105) mg/dL Lactic Acid (0.5-2.2) mmol/L Calcium 8.2 L (8.4-10.2) mg/dl Total Bilirubin (0.2-1.0) mg/dL AST (10-42) IU/L ALT (10-60) IU/L Alkaline Phosphatase (42-121) IU/L Ammonia (11-35) umol/L Troponin I (0.00-0.02) ng/ml B-Natriuretic Peptide (0-100) pg/ml Total Protein (6.7-8.2) g/dl Albumin (3.2-5.5) g/dl Globulin Albumin/Globulin Ratio Yang Results Last 24 Hours: Microbiology 09/02/17 22:55 Influenza Type A Antigen Screen - Final Nasal, Unspecified NEGATIVE INFLUENZA A VIRUS AG Influenza Type B Antigen Screen - Final NEGATIVE INFLUENZA B VIRUS AG Med Orders - Current: Current Medications Cyclosporine (Restasis) 0 each EYEBOTH BID [facility] Last Admin: 09/03/17 08:49 Dose: 1 drop Furosemide (Lasix) 40 mg IVPUSH Q8H [facility] Last Admin: 09/03/17 08:49 Dose: 40 mg Heparin Sodium (Porcine) (Heparin Sodium) 5,000 units SUBCUT Q8HR [facility] Last Admin: 09/03/17 05:32 Dose: 5,000 units Levofloxacin/Dextrose 750 mg/ (Premix) 150 mls @ 100 mls/hr IV Q24H [facility] Vancomycin HCl 1.25 gm/ Sodium (Chloride) 250 mls @ 166.667 mls/hr IV Q12H [facility] Last Admin: 09/03/17 01:38 Dose: 166.667 mls/hr Levothyroxine Sodium (Levothyroxine) 112 mcg PO DAILY [facility] Last Admin: 09/03/17 08:49 Dose: 112 mcg Non-Formulary Medication (Ursodiol [Ursodiol]) 500 mg PO BID [facility] Ondansetron HCl (Zofran Odt) 4 mg PO Q4H PRN PRN Reason: nausea, able to take PO Pantoprazole Sodium (Protonix) 40 mg PO BIDMEALS [facility] Last Admin: 09/03/17 08:49 Dose: 40 mg Sodium Chloride (Saline Flush) 10 ml FLUSH ASDIRECTED PRN PRN Reason: Keep Vein Open Spironolactone (Aldactone) 150 mg PO DAILY [facility] Last Admin: 09/03/17 08:49 Dose: 150 mg Tramadol HCl (Ultram) 25 mg PO Q6HR PRN PRN Reason: Pain Last Admin: 09/03/17 08:51 Dose: 25 mg Vancomycin HCl (Pharmacy To Dose - Vancomycin) 1 dose .XX ASDIRECTED [facility] Zolpidem Tartrate (Ambien) 5 mg PO BEDTIME PRN PRN Reason: Sleep Discontinued Medications Levofloxacin/Dextrose 750 mg/ (Premix) 150 mls @ 100 mls/hr IV ONETIME ONE Stop: 09/03/17 01:11 Last Admin: 09/02/17 23:48 Dose: 100 mls/hr - Exam Quality Assessment: Supplemental Oxygen General: Alert, Oriented Neck: Supple Lungs: Normal Respiratory Effort, Decreased Breath Sounds Cardiovascular: Regular Rate, Regular Rhythm GI/Abdominal Exam: Normal Bowel Sounds, Soft, Non-Tender Extremities: Pedal Edema Skin: Warm Psy/Mental Status: Alert, Normal Affect, Normal Mood - Problem List Review Problem List Initiated/Reviewed/Updated: Yes - My Orders Last 24 Hours: My Active Orders 09/03/17 00:32 CULTURE SPUTUM + SMEAR [RM] Routine 09/03/17 00:33 traMADol [Ultram] 25 mg PO Q6HR PRN 09/03/17 00:36 Patient Status [ADT] Routine Oxygen Therapy [RC] PRN Up With Assistance [RC] ASDIRECTED VTE/DVT Education [RC] PER UNIT ROUTINE Vital Signs [RC] Q4H Ondansetron [Zofran ODT] 4 mg PO Q4H PRN Sodium Chloride 0.9% [Saline Flush] 10 ml FLUSH ASDIRECTED PRN Zolpidem [Ambien] 5 mg PO BEDTIME PRN Peripheral IV Insertion Adult [OM.PC] Routine Saline Lock Insert [OM.PC] Routine Resuscitation Status Routine 09/03/17 00:38 Antiembolic Hose [OM.PC] Per Unit Routine 09/03/17 00:39 Peripheral IV Care [RC] . DIRECTED 09/03/17 00:45 Vancomycin Pharmacy to Dose [Pharmacy to Dose - Vancomycin] 1 dose .XX ASDIRECTED 09/03/17 01:00 Furosemide [Lasix] 40 mg IVPUSH Q8H Vancomycin 1.25 gm Sodium Chloride 0.9% [Normal Saline] 250 ml IV Q12H 09/03/17 06:00 Heparin Sodium 5,000 units SUBCUT Q8HR 09/03/17 08:00 Pantoprazole [ProTONIX] 40 mg PO BIDMEALS 09/03/17 09:00 Levothyroxine 112 mcg PO DAILY Spironolactone [Aldactone] 150 mg PO DAILY Ursodiol [Ursodiol] 500 mg PO BID cycloSPORINE [Restasis] 0 each EYEBOTH BID 09/03/17 Breakfast Fluid Restriction [DIET] Regular Diet [DIET] 09/04/17 00:00 Levofloxacin/Dextrose 5%-Water [Levaquin in D5W 750 MG/150 ML] 750 mg Premix Bag 1 bag IV Q24H 09/04/17 05:15 BASIC METABOLIC PANEL,BMP [CHEM] AM CBC WITH AUTO DIFF [HEME] AM - Plan Plan:: 66-year-old lady with a history of decompensated primary biliary cirrhosis, potential transplant candidate. Presented with leukocytosis, subjective fever, chills. Shortness of breath with Massive edema with pleural effusion. #1 possible pneumonia, possible bacteremia In an immunocompromised patient with cirrhosis Recent multiple health care facility exposure, possible gram-negative pneumonia or bacteremia. With recent 2 weeks of Zosyn treatment for Escherichia coli bacteremia pending blood culture, sputum culture, pending urine analysis and culture Empirically treat with levofloxacin and vancomycin #2 massive fluid overload Likely due to decompensated primary biliary cirrhosis Last echocardiogram May 2017 showed good ejection fraction Hypoalbuminemia might play a role treat the patient with IV Lasix, continue spironolactone Fluid restriction 1500 cc Follow electrolytes and weight #3 severe hyponatremia Likely due to massive fluid overload improving We'll follow with diuretics Fluid restriction #4 thrombocytopenia likely due to cirrhosis We'll follow #5 diet-controlled diabetes #6 DVT prophylaxis will be subcutaneous heparin Follow platelet counts
--- NOTE | 2017-09-03 14:05 | EKG ---
09/02/2017- SURJIT JIMENEZ - FINDINGS: EKG, per my reading, shows sinus rhythm at the rate of 81. [facility] /[id number]
[2017-09-03] MEDS: URSODIOL 500 MG PO SCH ×2 (15:14→21:41)
[2017-09-03] MEDS: Sodium Chloride 0.9% 10 ML Syringe FLUSH PRN (23:55)
[2017-09-03] MEDS: Levofloxacin/Dextrose 5%-Water 750 MG in Premix Bag 1 BAG IV SCH (23:56)
[2017-09-04] MEDS: Sodium Chloride 0.9% 10 ML Syringe FLUSH PRN ×3 (01:28→23:27)
[2017-09-04] MEDS: Furosemide 40 MG/4 ML VIAL IVPUSH SCH ×3 (01:29→18:03)
[2017-09-04] MEDS: Heparin Sodium 5,000 Units/ML Vial SUBCUT SCH ×2 (06:31→22:42)
[2017-09-04 06:59] LABS: CHLORIDE,CL 89 mmol/L (101-111)
[2017-09-04 07:00] LABS: SODIUM,NA 120 mmol/L (135-145)
[2017-09-04] MEDS: Levothyroxine 112 MCG Tab PO SCH (09:09)
[2017-09-04] MEDS: Spironolactone 25 MG Tab PO SCH (09:09)
[2017-09-04] MEDS: Pantoprazole 40 MG Tab.CR PO SCH ×2 (09:10→18:03)
[2017-09-04] MEDS: URSODIOL 500 MG PO SCH ×2 (09:14→22:35)
[2017-09-04] MEDS: cycloSPORINE Ophth Drops U/D Box of 30 EYEBOTH SCH ×2 (09:14→22:38)
--- NOTE | 2017-09-04 11:10 | PCM.PN ---
- General Info Date of Service: 09/04/17 Admission Dx/Problem (Free Text): Admission Diagnosis/Problem Admission Diagnosis/Problem Edema Functional Status: Reports: Pain Controlled - Review of Systems General: Reports: No Symptoms HEENT: Reports: No Symptoms Pulmonary: Reports: No Symptoms Cardiovascular: Reports: No Symptoms Gastrointestinal: Reports: No Symptoms Genitourinary: Reports: No Symptoms Musculoskeletal: Reports: No Symptoms Skin: Reports: No Symptoms Neurological: Reports: No Symptoms Psychiatric: Reports: No Symptoms - Patient Data Vitals - Most Recent: Last Vital Signs Temp 98.5 F 09/04/17 08:00 Pulse 55 L 09/04/17 08:00 Resp 20 09/04/17 08:00 BP 96/42 L 09/04/17 08:00 Pulse Ox 96 09/04/17 08:00 Weight - Most Recent: 225 lb 1.6 oz I&O - Last 24 Hours: Intake & Output 09/03/17 09/04/17 09/04/17 22:59 06:59 14:59 Intake Total 500 Output Total 1700 1925 Balance -1700 -1425 Lab Results Last 24 Hours: Laboratory Results - last 24 hr 09/04/17 09/04/17 Range/Units 06:15 06:15 WBC 14.9 H (5.0-10.0) 10^3/uL RBC 2.66 L (4.2-5.4) 10^6/uL Hgb 10.0 L (12.0-16.0) g/dL Hct 27.6 L (37.0-47.0) % MCV 103.8 H (80-100) fL MCH 37.6 H (27.0-34.0) pg MCHC 36.2 H (33.0-35.0) g/dL Plt Count 75 L (150-450) 10^3/uL Neut % (Auto) 40.0 L (42.2-75.2) % Lymph % (Auto) 11.2 L (20.5-50.1) % [place] % (Auto) 12.0 H (2-8) % Eos % (Auto) 36.6 H (1.0-3.0) % Baso % (Auto) 0.2 (0.0-1.0) % Add Manual Diff Yes Neutrophils % (Manual) 35 L (42-75) % Band Neutrophils % 1 % Lymphocytes % (Manual) 11 L (20-50) % Monocytes % (Manual) 6 (2-8) % Eosinophils % (Manual) 46 H (1-3) % Myelocytes % 1 Platelet Estimate Decreased Macrocytosis 2+ moderate Target Cells 2+ moderate Amanda Cells 2+ moderate Sodium 120 L (135-145) mmol/L Potassium 3.9 (3.6-5.0) mmol/L Chloride 89 L (101-111) mmol/L Carbon Dioxide 25.0 (21.0-31.0) mmol/L Anion Gap 9.9 BUN 12 (7-18) mg/dL Creatinine 0.7 (0.6-1.3) mg/dL Est Cr Clr Drug Dosing 78.95 mL/min Estimated GFR (MDRD) > 60 Glucose 81 (74-105) mg/dL Calcium 8.1 L (8.4-10.2) mg/dl Yang Results Last 24 Hours: Microbiology 09/02/17 23:55 Aerobic Blood Culture - Preliminary Blood - Venous - Lab Draw NO GROWTH AFTER 1 DAY Anaerobic Blood Culture - Preliminary NO GROWTH AFTER 1 DAY 09/02/17 23:00 Aerobic Blood Culture - Preliminary Blood - Venous NO GROWTH AFTER 1 DAY Anaerobic Blood Culture - Preliminary NO GROWTH AFTER 1 DAY Med Orders - Current: Current Medications Cyclosporine (Restasis) 0 each EYEBOTH BID [facility] Last Admin: 09/04/17 09:14 Dose: 1 drop Furosemide (Lasix) 40 mg IVPUSH Q8H [facility] Last Admin: 09/04/17 09:16 Dose: 40 mg Heparin Sodium (Porcine) (Heparin Sodium) 5,000 units SUBCUT Q8HR [facility] Last Admin: 09/04/17 06:31 Dose: Not Given Levofloxacin/Dextrose 750 mg/ (Premix) 150 mls @ 100 mls/hr IV Q24H [facility] Last Infusion: 09/04/17 01:28 Dose: Infused Vancomycin HCl 1.25 gm/ Sodium (Chloride) 250 mls @ 166.667 mls/hr IV Q12H [facility] Last Admin: 09/04/17 01:29 Dose: 166.667 mls/hr Levothyroxine Sodium (Levothyroxine) 112 mcg PO DAILY [facility] Last Admin: 09/04/17 09:09 Dose: 112 mcg Ondansetron HCl (Zofran Odt) 4 mg PO Q4H PRN PRN Reason: nausea, able to take PO Pantoprazole Sodium (Protonix) 40 mg PO BIDMEALS [facility] Last Admin: 09/04/17 09:10 Dose: 40 mg Ursodiol 500 Mg (Pt's Own Med) 0 each PO BID [facility] Last Admin: 09/04/17 09:14 Dose: 1 each Sodium Chloride (Saline Flush) 10 ml FLUSH ASDIRECTED PRN PRN Reason: Keep Vein Open Last Admin: 09/04/17 01:28 Dose: 10 ml Spironolactone (Aldactone) 150 mg PO DAILY [facility] Last Admin: 09/04/17 09:09 Dose: 150 mg Tramadol HCl (Ultram) 25 mg PO Q6HR PRN PRN Reason: Pain Last Admin: 09/03/17 20:31 Dose: 25 mg Vancomycin HCl (Pharmacy To Dose - Vancomycin) 1 dose .XX ASDIRECTED [facility] Zolpidem Tartrate (Ambien) 5 mg PO BEDTIME PRN PRN Reason: Sleep Discontinued Medications Levofloxacin/Dextrose 750 mg/ (Premix) 150 mls @ 100 mls/hr IV ONETIME ONE Stop: 09/03/17 01:11 Last Admin: 09/02/17 23:48 Dose: 100 mls/hr - Exam General: Alert, Oriented HEENT: Pupils Equal, Pupils Reactive, EOMI, Mucous Membr. Moist/[place] Neck: Supple Lungs: Clear to Auscultation, Normal Respiratory Effort Cardiovascular: Regular Rate, Regular Rhythm GI/Abdominal Exam: Normal Bowel Sounds, Soft, Non-Tender, No Organomegaly, No Distention, No Abnormal Bruit, No Mass, Pelvis Stable (Female) Exam: Normal External Exam, Normal Speculum Exam, Normal Bimanual Exam Back Exam: Normal Inspection, Full Range of Motion Extremities: Normal Inspection, Normal Range of Motion, Non-Tender, No Pedal Edema, Normal Capillary Refill Skin: Warm, Dry, Intact Wound/Incisions: Healing Well Neurological: No New Focal Deficit Psy/Mental Status: Alert, Normal Affect, Normal Mood - Problem List Review Problem List Initiated/Reviewed/Updated: Yes - Plan Plan:: 66-year-old lady with a history of decompensated primary biliary cirrhosis, potential transplant candidate. Presented with leukocytosis, subjective fever, chills. Shortness of breath with Massive edema with pleural effusion. #1 possible pneumonia, possible bacteremia In an immunocompromised patient with cirrhosis Recent multiple health care facility exposure, possible gram-negative pneumonia or bacteremia. With recent 2 weeks of Zosyn treatment for Escherichia coli bacteremia cultures negative so far Continue levofloxacin and vancomycin #2 massive fluid overload Likely due to decompensated primary biliary cirrhosis Last echocardiogram May 2017 showed good ejection fraction Hypoalbuminemia might play a role treat the patient with IV Lasix, continue spironolactone Fluid restriction 1500 cc Follow electrolytes and weight #3 severe hyponatremia Likely due to massive fluid overload improving We'll follow with diuretics Fluid restriction #4 thrombocytopenia likely due to cirrhosis We'll follow #5 diet-controlled diabetes #6 DVT prophylaxis will be subcutaneous heparin Follow platelet counts
[2017-09-04] MEDS ORDERED: Docusate Sodium 100 MG Cap PO PRN (21:36)
[2017-09-04] MEDS: Levofloxacin/Dextrose 5%-Water 750 MG in Premix Bag 1 BAG IV SCH (23:29)
[2017-09-05] MEDS: traMADol 50 MG Tab PO PRN ×2 (00:31→20:37)
[2017-09-05] MEDS: Sodium Chloride 0.9% 10 ML Syringe FLUSH PRN ×4 (01:05→17:17)
[2017-09-05] MEDS: Furosemide 40 MG/4 ML VIAL IVPUSH SCH ×3 (01:06→17:16)
[2017-09-05] MEDS: Pantoprazole 40 MG Tab.CR PO SCH ×2 (08:20→17:17)
[2017-09-05] MEDS: cycloSPORINE Ophth Drops U/D Box of 30 EYEBOTH SCH ×2 (09:54→20:35)
[2017-09-05] MEDS: URSODIOL 500 MG PO SCH ×2 (09:55→20:36)
[2017-09-05] MEDS: Spironolactone 25 MG Tab PO SCH (09:56)
[2017-09-05] MEDS: Levothyroxine 112 MCG Tab PO SCH (09:57)
[2017-09-05] MEDS: Heparin Sodium 5,000 Units/ML Vial SUBCUT SCH ×2 (10:00→20:35)
--- NOTE | 2017-09-05 14:24 | PCM.PN ---
- General Info Date of Service: 09/05/17 Admission Dx/Problem (Free Text): Admission Diagnosis/Problem Admission Diagnosis/Problem Edema Subjective Update: Seen today No overnight event wbc trended up. No fever or chills Functional Status: Reports: Pain Controlled - Review of Systems General: Reports: No Symptoms HEENT: Reports: No Symptoms Pulmonary: Reports: No Symptoms Cardiovascular: Reports: No Symptoms Gastrointestinal: Reports: No Symptoms Genitourinary: Reports: No Symptoms Musculoskeletal: Reports: No Symptoms Skin: Reports: No Symptoms Neurological: Reports: No Symptoms Psychiatric: Reports: No Symptoms - Patient Data Vitals - Most Recent: Last Vital Signs Temp 98.2 F 09/05/17 11:10 Pulse 88 09/05/17 11:10 Resp 20 09/05/17 11:10 BP 109/52 L 09/05/17 11:10 Pulse Ox 96 09/05/17 11:10 Weight - Most Recent: 222 lb 12.8 oz I&O - Last 24 Hours: Intake & Output 09/04/17 09/05/17 09/05/17 22:59 06:59 14:59 Intake Total 85 743 200 Output Total 1350 400 650 Balance -1265 343 -450 Lab Results Last 24 Hours: Laboratory Results - last 24 hr 09/05/17 09/05/17 Range/Units 09:43 09:43 WBC 19.3 H (5.0-10.0) 10^3/uL RBC 2.69 L (4.2-5.4) 10^6/uL Hgb 10.1 L (12.0-16.0) g/dL Hct 27.6 L (37.0-47.0) % MCV 102.6 H (80-100) fL MCH 37.5 H (27.0-34.0) pg MCHC 36.6 H (33.0-35.0) g/dL Plt Count 73 L (150-450) 10^3/uL Neut % (Auto) 63.7 (42.2-75.2) % Lymph % (Auto) 5.4 L (20.5-50.1) % [place] % (Auto) 14.5 H (2-8) % Eos % (Auto) 16.3 H (1.0-3.0) % Baso % (Auto) 0.1 (0.0-1.0) % Sodium 120 L (135-145) mmol/L Potassium 4.0 (3.6-5.0) mmol/L Chloride 89 L (101-111) mmol/L Carbon Dioxide 25.0 (21.0-31.0) mmol/L Anion Gap 10.0 BUN 13 (7-18) mg/dL Creatinine 1.0 (0.6-1.3) mg/dL Est Cr Clr Drug Dosing 55.27 mL/min Estimated GFR (MDRD) 56 Glucose 93 (74-105) mg/dL Calcium 8.4 (8.4-10.2) mg/dl Yang Results Last 24 Hours: Microbiology 09/02/17 23:55 Aerobic Blood Culture - Preliminary Blood - Venous - Lab Draw NO GROWTH AFTER 2 DAYS Anaerobic Blood Culture - Preliminary NO GROWTH AFTER 2 DAYS 09/02/17 23:00 Aerobic Blood Culture - Preliminary Blood - Venous NO GROWTH AFTER 2 DAYS Anaerobic Blood Culture - Preliminary NO GROWTH AFTER 2 DAYS Med Orders - Current: Current Medications Cyclosporine (Restasis) 0 each EYEBOTH BID [facility] Last Admin: 09/05/17 09:54 Dose: 1 drop Docusate Sodium (Colace) 100 mg PO BID PRN PRN Reason: Constipation Last Admin: 09/05/17 01:20 Dose: 100 mg Furosemide (Lasix) 40 mg IVPUSH Q8H [facility] Last Admin: 09/05/17 09:58 Dose: 40 mg Heparin Sodium (Porcine) (Heparin Sodium) 5,000 units SUBCUT Q12HR [facility] Last Admin: 09/05/17 10:00 Dose: 5,000 units Levofloxacin/Dextrose 750 mg/ (Premix) 150 mls @ 100 mls/hr IV Q24H [facility] Last Infusion: 09/05/17 01:03 Dose: Infused Vancomycin HCl 1.25 gm/ Sodium (Chloride) 250 mls @ 166.667 mls/hr IV Q18H [facility] Last Admin: 09/04/17 20:28 Dose: 166.667 mls/hr Levothyroxine Sodium (Levothyroxine) 112 mcg PO DAILY [facility] Last Admin: 09/05/17 09:57 Dose: 112 mcg Ondansetron HCl (Zofran Odt) 4 mg PO Q4H PRN PRN Reason: nausea, able to take PO Pantoprazole Sodium (Protonix) 40 mg PO BIDMEALS [facility] Last Admin: 09/05/17 08:20 Dose: 40 mg Ursodiol 500 Mg (Pt's Own Med) 0 each PO BID [facility] Last Admin: 09/05/17 09:55 Dose: 1 each Sodium Chloride (Saline Flush) 10 ml FLUSH ASDIRECTED PRN PRN Reason: Keep Vein Open Last Admin: 09/05/17 10:00 Dose: 10 ml Spironolactone (Aldactone) 150 mg PO DAILY [facility] Last Admin: 09/05/17 09:56 Dose: 150 mg Tramadol HCl (Ultram) 25 mg PO Q6HR PRN PRN Reason: Pain Last Admin: 09/05/17 00:31 Dose: 25 mg Vancomycin HCl (Pharmacy To Dose - Vancomycin) 1 dose .XX ASDIRECTED [facility] Zolpidem Tartrate (Ambien) 5 mg PO BEDTIME PRN PRN Reason: Sleep Discontinued Medications Heparin Sodium (Porcine) (Heparin Sodium) 5,000 units SUBCUT Q8HR [facility] Last Admin: 09/04/17 06:31 Dose: Not Given Levofloxacin/Dextrose 750 mg/ (Premix) 150 mls @ 100 mls/hr IV ONETIME ONE Stop: 09/03/17 01:11 Last Admin: 09/02/17 23:48 Dose: 100 mls/hr Vancomycin HCl 1.25 gm/ Sodium (Chloride) 250 mls @ 166.667 mls/hr IV Q12H [facility] Last Admin: 09/04/17 01:29 Dose: 166.667 mls/hr - Exam General: Alert, Oriented HEENT: Pupils Equal, Pupils Reactive, EOMI, Mucous Membr. Moist/[place] Neck: Supple Lungs: Clear to Auscultation, Normal Respiratory Effort Cardiovascular: Regular Rate, Regular Rhythm GI/Abdominal Exam: Normal Bowel Sounds, Soft, Non-Tender, No Organomegaly, No Distention, No Abnormal Bruit, No Mass, Pelvis Stable (Female) Exam: Normal External Exam, Normal Speculum Exam, Normal Bimanual Exam Back Exam: Normal Inspection, Full Range of Motion Extremities: Normal Inspection, Normal Range of Motion, Non-Tender, No Pedal Edema, Normal Capillary Refill Skin: Warm, Dry, Intact Wound/Incisions: Healing Well Neurological: No New Focal Deficit Psy/Mental Status: Alert, Normal Affect, Normal Mood - Problem List Review Problem List Initiated/Reviewed/Updated: Yes - My Orders Last 24 Hours: My Active Orders 09/04/17 21:00 Heparin Sodium 5,000 units SUBCUT Q12HR 09/04/17 21:36 Docusate Sodium [Colace] 100 mg PO BID PRN 09/06/17 07:00 CBC WITH AUTO DIFF [HEME] DAILY 09/07/17 07:00 CBC WITH AUTO DIFF [HEME] DAILY - Plan Plan:: 66-year-old lady with a history of decompensated primary biliary cirrhosis, potential transplant candidate. Presented with leukocytosis, subjective fever, chills. Shortness of breath with Massive edema with pleural effusion. #1 possible pneumonia, possible bacteremia In an immunocompromised patient with cirrhosis Recent multiple health care facility exposure, possible gram-negative pneumonia or bacteremia. With recent 2 weeks of Zosyn treatment for Escherichia coli bacteremia pending blood culture, sputum culture, pending urine analysis and culture continue levofloxacin and vancomycin #2 massive fluid overload Likely due to decompensated primary biliary cirrhosis Last echocardiogram May 2017 showed good ejection fraction Hypoalbuminemia might play a role continue spironolactone and lasix Fluid restriction 1500 cc Follow electrolytes and weight #3 severe hyponatremia Likely due to massive fluid overload improving We'll follow with diuretics Fluid restriction will start salt tablet #4 thrombocytopenia likely due to cirrhosis We'll follow #5 diet-controlled diabetes #6 DVT prophylaxis will be subcutaneous heparin Follow platelet counts
[2017-09-05] MEDS: Levofloxacin/Dextrose 5%-Water 750 MG in Premix Bag 1 BAG IV SCH (23:52)
[2017-09-06] MEDS: Furosemide 40 MG/4 ML VIAL IVPUSH SCH ×3 (01:22→14:58)
[2017-09-06] MEDS: Pantoprazole 40 MG Tab.CR PO SCH ×2 (08:37→17:46)
[2017-09-06] MEDS: URSODIOL 500 MG PO SCH ×2 (08:39→20:31)
[2017-09-06] MEDS: cycloSPORINE Ophth Drops U/D Box of 30 EYEBOTH SCH ×2 (08:39→20:29)
[2017-09-06] MEDS: Heparin Sodium 5,000 Units/ML Vial SUBCUT SCH (09:10)
[2017-09-06] MEDS: Spironolactone 25 MG Tab PO SCH (09:13)
[2017-09-06] MEDS: Levothyroxine 112 MCG Tab PO SCH (09:14)
[2017-09-06] MEDS: Sodium Chloride 0.9% 10 ML Syringe FLUSH PRN ×2 (09:16→15:00)
--- NOTE | 2017-09-06 09:38 | PCM.PN ---
- General Info Date of Service: 09/06/17 Admission Dx/Problem (Free Text): Admission Diagnosis/Problem Admission Diagnosis/Problem Edema Subjective Update: The patient is a 66-year-old lady with a history of primary biliary cirrhosis, esophageal varices, diet-controlled diabetes, thrombocytopenia, chronic hyponatremia and recently treated for Escherichia coli bacteremia. She was evaluated at the [facility] for possible transplant. She was told that she has pneumonia and Augmentin was given. She presented with increasing shortness of breath and massive fluid overload. She was subsequently admitted for possible pneumonia and fluid overload. Her cultures are negative so far. Patient reports doing well. SOB has improved and leg swelling improving. Her wbc is trending down. She remain afebrile. She only reports constipation. Functional Status: Reports: Pain Controlled - Review of Systems General: Reports: No Symptoms HEENT: Reports: No Symptoms Pulmonary: Reports: No Symptoms Cardiovascular: Reports: No Symptoms Gastrointestinal: Reports: No Symptoms Genitourinary: Reports: No Symptoms Musculoskeletal: Reports: No Symptoms Skin: Reports: No Symptoms Neurological: Reports: No Symptoms Psychiatric: Reports: No Symptoms - Patient Data Vitals - Most Recent: Last Vital Signs Temp 98.2 F 09/06/17 07:00 Pulse 85 09/06/17 07:00 Resp 18 09/06/17 07:00 BP 121/65 09/06/17 07:00 Pulse Ox 92 L 09/06/17 07:00 Weight - Most Recent: 222 lb I&O - Last 24 Hours: Intake & Output 09/05/17 09/06/17 09/06/17 22:59 06:59 14:59 Intake Total 452 136 Output Total 700 300 400 Balance -248 -164 -400 Lab Results Last 24 Hours: Laboratory Results - last 24 hr 09/05/17 09/05/17 09/06/17 Range/Units 09:43 09:43 05:45 WBC 19.3 H 15.4 H (5.0-10.0) 10^3/uL RBC 2.69 L 2.58 L (4.2-5.4) 10^6/uL Hgb 10.1 L 9.8 L (12.0-16.0) g/dL Hct 27.6 L 26.8 L (37.0-47.0) % MCV 102.6 H 103.9 H (80-100) fL MCH 37.5 H 38.0 H (27.0-34.0) pg MCHC 36.6 H 36.6 H (33.0-35.0) g/dL Plt Count 73 L 58 L (150-450) 10^3/uL Neut % (Auto) 63.7 49.7 (42.2-75.2) % Lymph % (Auto) 5.4 L 8.2 L (20.5-50.1) % [place] % (Auto) 14.5 H 10.6 H (2-8) % Eos % (Auto) 16.3 H 31.3 H (1.0-3.0) % Baso % (Auto) 0.1 0.2 (0.0-1.0) % Sodium 120 L (135-145) mmol/L Potassium 4.0 (3.6-5.0) mmol/L Chloride 89 L (101-111) mmol/L Carbon Dioxide 25.0 (21.0-31.0) mmol/L Anion Gap 10.0 BUN 13 (7-18) mg/dL Creatinine 1.0 (0.6-1.3) mg/dL Est Cr Clr Drug Dosing 55.27 mL/min Estimated GFR (MDRD) 56 Glucose 93 (74-105) mg/dL Calcium 8.4 (8.4-10.2) mg/dl Yang Results Last 24 Hours: Microbiology 09/02/17 23:55 Aerobic Blood Culture - Preliminary Blood - Venous - Lab Draw NO GROWTH AFTER 3 DAYS Anaerobic Blood Culture - Preliminary NO GROWTH AFTER 3 DAYS 09/02/17 23:00 Aerobic Blood Culture - Preliminary Blood - Venous NO GROWTH AFTER 3 DAYS Anaerobic Blood Culture - Preliminary NO GROWTH AFTER 3 DAYS Med Orders - Current: Current Medications Cyclosporine (Restasis) 0 each EYEBOTH BID [facility] Last Admin: 09/06/17 08:39 Dose: 1 drop Docusate Sodium (Colace) 100 mg PO BID PRN PRN Reason: Constipation Last Admin: 09/05/17 01:20 Dose: 100 mg Furosemide (Lasix) 40 mg IVPUSH Q8H [facility] Last Admin: 09/06/17 09:15 Dose: 40 mg Heparin Sodium (Porcine) (Heparin Sodium) 5,000 units SUBCUT Q12HR [facility] Last Admin: 09/06/17 09:10 Dose: 5,000 units Levofloxacin/Dextrose 750 mg/ (Premix) 150 mls @ 100 mls/hr IV Q24H [facility] Last Infusion: 09/06/17 01:22 Dose: Infused Levothyroxine Sodium (Levothyroxine) 112 mcg PO DAILY [facility] Last Admin: 09/06/17 09:14 Dose: 112 mcg Ondansetron HCl (Zofran Odt) 4 mg PO Q4H PRN PRN Reason: nausea, able to take PO Pantoprazole Sodium (Protonix) 40 mg PO BIDMEALS [facility] Last Admin: 09/06/17 08:37 Dose: 40 mg Ursodiol 500 Mg (Pt's Own Med) 0 each PO BID [facility] Last Admin: 09/06/17 08:39 Dose: 1 each Sodium Chloride (Saline Flush) 10 ml FLUSH ASDIRECTED PRN PRN Reason: Keep Vein Open Last Admin: 09/06/17 09:16 Dose: 10 ml Sodium Chloride (Sodium Chloride) 1 gm PO TID [facility] Spironolactone (Aldactone) 150 mg PO DAILY [facility] Last Admin: 09/06/17 09:13 Dose: 150 mg Tramadol HCl (Ultram) 25 mg PO Q6HR PRN PRN Reason: Pain Last Admin: 09/05/17 20:37 Dose: 25 mg Vancomycin HCl (Pharmacy To Dose - Vancomycin) 1 dose .XX ASDIRECTED [facility] Zolpidem Tartrate (Ambien) 5 mg PO BEDTIME PRN PRN Reason: Sleep Discontinued Medications Heparin Sodium (Porcine) (Heparin Sodium) 5,000 units SUBCUT Q8HR [facility] Last Admin: 09/04/17 06:31 Dose: Not Given Levofloxacin/Dextrose 750 mg/ (Premix) 150 mls @ 100 mls/hr IV ONETIME ONE Stop: 09/03/17 01:11 Last Admin: 09/02/17 23:48 Dose: 100 mls/hr Vancomycin HCl 1.25 gm/ Sodium (Chloride) 250 mls @ 166.667 mls/hr IV Q12H [facility] Last Admin: 09/04/17 01:29 Dose: 166.667 mls/hr Vancomycin HCl 1.25 gm/ Sodium (Chloride) 250 mls @ 166.667 mls/hr IV Q18H [facility] Last Admin: 09/06/17 09:10 Dose: 166.667 mls/hr - Exam Quality Assessment: DVT Prophylaxis General: Alert, Oriented HEENT: Pupils Equal, Pupils Reactive, EOMI, Mucous Membr. Moist/[place] Neck: Supple Lungs: Clear to Auscultation, Normal Respiratory Effort Cardiovascular: Regular Rate, Regular Rhythm GI/Abdominal Exam: Normal Bowel Sounds, Soft, Non-Tender, No Organomegaly, No Distention, No Abnormal Bruit, No Mass, Pelvis Stable (Female) Exam: Normal External Exam, Normal Speculum Exam, Normal Bimanual Exam Back Exam: Normal Inspection, Full Range of Motion Extremities: Normal Inspection, Normal Range of Motion, Non-Tender, No Pedal Edema, Normal Capillary Refill, Other (b/l leg edema improving) Skin: Warm, Dry, Intact Wound/Incisions: Healing Well Neurological: No New Focal Deficit Psy/Mental Status: Alert, Normal Affect, Normal Mood - Problem List & Annotations (1) Abdominal pain SNOMED Code(s): 28243507 Code(s): R10.9 - UNSPECIFIED ABDOMINAL PAIN Status: Acute Current Visit: No Qualifiers: Abdominal location: generalized Qualified Code(s): R10.84 - Generalized abdominal pain (2) Ascites SNOMED Code(s): 226004049 Code(s): R18.8 - OTHER ASCITES Status: Acute Current Visit: No Qualifiers: Ascites type: other type Qualified Code(s): R18.8 - Other ascites (3) Cirrhosis SNOMED Code(s): 74631246 Code(s): K74.60 - UNSPECIFIED CIRRHOSIS OF LIVER Status: Acute Current Visit: No Qualifiers: Hepatic cirrhosis type: unspecified hepatic cirrhosis Ascites presence: with ascites Qualified Code(s): K74.60 - Unspecified cirrhosis of liver (4) Hematuria SNOMED Code(s): 59092931 Code(s): R31.9 - HEMATURIA, UNSPECIFIED Status: Acute Current Visit: No Qualifiers: Hematuria type: unspecified type Qualified Code(s): R31.9 - Hematuria, unspecified (5) Hyponatremia SNOMED Code(s): 52671664 Code(s): E87.1 - HYPO-OSMOLALITY AND HYPONATREMIA Status: Acute Current Visit: No (6) Jaundice SNOMED Code(s): 54249607 Code(s): R17 - UNSPECIFIED JAUNDICE Status: Acute Current Visit: No (7) Liver disease SNOMED Code(s): 063437570 Code(s): K76.9 - LIVER DISEASE, UNSPECIFIED Status: Acute Current Visit: No (8) Liver failure SNOMED Code(s): 31330534 Code(s): K72.90 - HEPATIC FAILURE, UNSPECIFIED WITHOUT COMA Status: Acute Current Visit: No Qualifiers: Liver failure chronicity: unspecified chronicity Hepatic coma status: without hepatic coma Qualified Code(s): K72.90 - Hepatic failure, unspecified without coma (9) Pneumonia SNOMED Code(s): 042430031 Code(s): J18.9 - PNEUMONIA, UNSPECIFIED ORGANISM Status: Acute Current Visit: No Qualifiers: Pneumonia type: due to unspecified organism Laterality: right Lung location: unspecified part of lung Qualified Code(s): J18.9 - Pneumonia, unspecified organism (10) SOB (shortness of breath) SNOMED Code(s): 692200456 Code(s): R06.02 - SHORTNESS OF BREATH Status: Acute Current Visit: No - Problem List Review Problem List Initiated/Reviewed/Updated: Yes - My Orders Last 24 Hours: My Active Orders 09/06/17 09:45 Sodium Chloride 1 gm PO TID 09/07/17 07:00 CBC WITH AUTO DIFF [HEME] DAILY - Plan Plan:: 66-year-old lady with a history of decompensated primary biliary cirrhosis, potential transplant candidate. Presented with leukocytosis, subjective fever, chills, shortness of breath with Massive edema with pleural effusion. #1 possible pneumonia in an immunocompromised patient with cirrhosis Recent multiple health care facility exposure, possible gram-negative pneumonia With recent 2 weeks of Zosyn treatment for Escherichia coli bacteremia Blood culture, sputum culture negative so far Continue levofloxacin. I will d/c vanco today #2 massive fluid overload Likely due to decompensated primary biliary cirrhosis Last echocardiogram May 2017 showed good ejection fraction Hypoalbuminemia might play a role Appears to be improving continue spironolactone and increase lasix to 80 mg bid Fluid restriction 1500 cc Follow electrolytes and weight #3 severe chronic hyponatremia Likely due to massive fluid overload improving Will continue diuretics Fluid restriction Salt tablet #4 thrombocytopenia likely due to cirrhosis We'll follow closely #Constipation -Bowel regimen #5 diet-controlled diabetes #6 DVT prophylaxis will be subcutaneous heparin Follow platelet counts
[2017-09-06] MEDS: Sodium Chloride 1 GM Tab PO SCH ×3 (11:07→20:32)
[2017-09-06] MEDS: Lactulose Soln 10 GM/15 ML 30 ML UD Cup PO SCH ×2 (11:07→20:31)
[2017-09-06] MEDS: traMADol 50 MG Tab PO PRN ×2 (13:45→20:33)
[2017-09-06] MEDS ORDERED: traMADol 50 MG Tab PO ONE (14:01)
[2017-09-06] MEDS ORDERED: Furosemide 40 MG/4 ML VIAL IVPUSH SCH (18:00)
[2017-09-06] MEDS ORDERED: Bisacodyl 10 MG Supp RECTAL PRN (19:25)
[2017-09-06] MEDS: Levofloxacin/Dextrose 5%-Water 750 MG in Premix Bag 1 BAG IV SCH (23:45)
[2017-09-07] MEDS ORDERED: Levothyroxine 112 MCG Tab PO SCH (06:00)
[2017-09-07] MEDS: Pantoprazole 40 MG Tab.CR PO SCH (08:16)
[2017-09-07] MEDS: Spironolactone 25 MG Tab PO SCH (09:28)
[2017-09-07] MEDS: Lactulose Soln 10 GM/15 ML 30 ML UD Cup PO SCH (09:29)
[2017-09-07] MEDS: Sodium Chloride 1 GM Tab PO SCH (09:29)
[2017-09-07] MEDS: cycloSPORINE Ophth Drops U/D Box of 30 EYEBOTH SCH (09:30)
[2017-09-07] MEDS: URSODIOL 500 MG PO SCH (09:30)
[2017-09-07] MEDS: traMADol 50 MG Tab PO PRN (09:30)
[2017-09-07] MEDS: Furosemide 40 MG/4 ML VIAL IVPUSH SCH (09:32)
[2017-09-07] MEDS: Sodium Chloride 0.9% 10 ML Syringe FLUSH PRN (09:48)
--- NOTE | 2017-09-07 11:30 | PCM.DCSUM1 ---
Discharge Summary - Hospital Course Free Text/Narrative:: The patient is a 66-year-old lady with a history of primary biliary cirrhosis, esophageal varices, diet-controlled diabetes, thrombocytopenia, chronic hyponatremia and recently treated for Escherichia coli bacteremia. She was evaluated at the [facility] for possible transplant. She was told that she has pneumonia and Augmentin was given. She presented with increasing shortness of breath and massive fluid overload. She was subsequently admitted for possible pneumonia and fluid overload. Her cultures are negative so far. Leukocytosis has resolved on IV antibiotics and has remained afebrile. Bilateral leg edema has significantly improved on IV diuretics. Patient was seen today and reports no complaints. Her symptoms have improved significantly. She is deemed stable for outpatient evaluation. She will follow with her PCP. - Discharge Data Discharge Date: 09/07/17 Discharge Disposition: Home, Self-Care 01 Condition: Good - Discharge Diagnosis/Problem(s) (1) Abdominal pain SNOMED Code(s): 38671366 ICD Code: R10.9 - UNSPECIFIED ABDOMINAL PAIN Status: Acute Priority: High Current Visit: No Qualifiers: Abdominal location: generalized Qualified Code(s): R10.84 - Generalized abdominal pain (2) Ascites SNOMED Code(s): 999547791 ICD Code: R18.8 - OTHER ASCITES Status: Acute Current Visit: No Qualifiers: Ascites type: other type Qualified Code(s): R18.8 - Other ascites (3) Cirrhosis SNOMED Code(s): 14470902 ICD Code: K74.60 - UNSPECIFIED CIRRHOSIS OF LIVER Status: Acute Priority : High Current Visit: No Qualifiers: Hepatic cirrhosis type: unspecified hepatic cirrhosis Ascites presence: with ascites Qualified Code(s): K74.60 - Unspecified cirrhosis of liver (4) Hematuria SNOMED Code(s): 50893037 ICD Code: R31.9 - HEMATURIA, UNSPECIFIED Status: Acute Current Visit: No Qualifiers: Hematuria type: unspecified type Qualified Code(s): R31.9 - Hematuria, unspecified (5) Hyponatremia SNOMED Code(s): 93476600 ICD Code: E87.1 - HYPO-OSMOLALITY AND HYPONATREMIA Status: Acute Current Visit: No (6) Jaundice SNOMED Code(s): 41931617 ICD Code: R17 - UNSPECIFIED JAUNDICE Status: Acute Current Visit: No (7) Liver disease SNOMED Code(s): 405539391 ICD Code: K76.9 - LIVER DISEASE, UNSPECIFIED Status: Acute Current Visit : No (8) Liver failure SNOMED Code(s): 58834617 ICD Code: K72.90 - HEPATIC FAILURE, UNSPECIFIED WITHOUT COMA Status: Acute Current Visit: No Qualifiers: Liver failure chronicity: unspecified chronicity Hepatic coma status: without hepatic coma Qualified Code(s): K72.90 - Hepatic failure, unspecified without coma (9) Pneumonia SNOMED Code(s): 565114089 ICD Code: J18.9 - PNEUMONIA, UNSPECIFIED ORGANISM Status: Acute Current Visit: No Qualifiers: Pneumonia type: due to unspecified organism Laterality: right Lung location: unspecified part of lung Qualified Code(s): J18.9 - Pneumonia, unspecified organism (10) SOB (shortness of breath) SNOMED Code(s): 448898823 ICD Code: R06.02 - SHORTNESS OF BREATH Status: Acute Current Visit: No - Patient Instructions Diet: Heart Healthy Diet Fluid Restriction: 1000 mL Activity: As Tolerated Driving: May Drive Today Showering/Bathing: May Shower Notify Provider of: Fever, Increased Pain, Swelling and Redness, Nausea and/or Vomiting - Discharge Plan Prescriptions/Med Rec: Furosemide 80 mg PO BIDAC 30 Days #60 tablet Lactulose [Cephulac] 20 gm PO BID 30 Days #2 cup Sodium Chloride 1 gm PO TID 30 Days #90 tablet Zolpidem [Ambien] 5 mg PO BEDTIME PRN 15 Days #15 tablet PRN Reason: Sleep Home Medications: Home Meds Polyvinyl Alcohol/Povidone [Artificial Tears Drops] 1 drop EYEBOTH BID PRN 03/04 [History] Pantoprazole Sodium 40 mg PO BIDMEALS 03/10/17 [History] Spironolactone [Aldactone] 150 mg PO DAILY 03/10/17 [History] Hydroxypropyl Cellulose [Lacrisert] 1 each EYEBOTH DAILY 07/29/17 [History] Levothyroxine 112 mcg PO DAILY 07/29/17 [History] cycloSPORINE [Restasis] 1 drop EYEBOTH BID 07/29/17 [History] Hydrocortisone [Hydrocortisone 2.5% Crm] 1 applic TOP QID PRN 08/28/17 [History] Ursodiol 500 mg PO BID 08/28/17 [History] traMADol [Ultram] 25 mg PO Q6HR PRN 08/28/17 [History] Furosemide 80 mg PO BIDAC 30 Days #60 tablet 09/07/17 [Rx] Lactulose [Cephulac] 20 gm PO BID 30 Days #2 cup 09/07/17 [Rx] Sodium Chloride 1 gm PO TID 30 Days #90 tablet 09/07/17 [Rx] Zolpidem [Ambien] 5 mg PO BEDTIME PRN 15 Days #15 tablet 09/07/17 [Rx] Referrals: PCP,Unobtain [Ordering Only Provider] - - Discharge Summary/Plan Comment DC Time >30 min.: Yes - General Info Admission Dx/Problem (Free Text: Admission Diagnosis/Problem Admission Diagnosis/Problem Edema Subjective Update: The patient is a 66-year-old lady with a history of primary biliary cirrhosis, esophageal varices, diet-controlled diabetes, thrombocytopenia, chronic hyponatremia and recently treated for Escherichia coli bacteremia. She was evaluated at the [facility] for possible transplant. She was told that she has pneumonia and Augmentin was given. She presented with increasing shortness of breath and massive fluid overload. She was subsequently admitted for possible pneumonia and fluid overload. Her cultures are negative so far. Patient reports doing well. SOB has improved and leg swelling improving. Her wbc is trending down. She remain afebrile. She only reports constipation. Functional Status: Reports: Pain Controlled - Review of Systems General: Reports: No Symptoms HEENT: Reports: No Symptoms Pulmonary: Reports: No Symptoms Cardiovascular: Reports: No Symptoms Gastrointestinal: Reports: No Symptoms, Other (constipation resolved) Genitourinary: Reports: No Symptoms Musculoskeletal: Reports: No Symptoms Skin: Reports: Jaundice Neurological: Reports: No Symptoms Psychiatric: Reports: No Symptoms - Patient Data Vitals - Most Recent: Last Vital Signs Temp 97.4 F 09/07/17 08:00 Pulse 77 09/07/17 08:00 Resp 18 09/07/17 08:00 BP 103/55 L 09/07/17 08:00 Pulse Ox 98 09/07/17 08:00 Weight - Most Recent: 218 lb I&O - Last 24 hours: Intake & Output 09/06/17 09/07/17 09/07/17 22:59 06:59 14:59 Intake Total 1370 142 120 Output Total 2000 300 Balance -630 142 -180 Lab Results - Last 24 hrs: Laboratory Results - last 24 hr 09/07/17 Range/Units 05:35 WBC 10.8 H (5.0-10.0) 10^3/uL RBC 2.63 L (4.2-5.4) 10^6/uL Hgb 9.9 L (12.0-16.0) g/dL Hct 27.3 L (37.0-47.0) % MCV 103.8 H (80-100) fL MCH 37.6 H (27.0-34.0) pg MCHC 36.3 H (33.0-35.0) g/dL Plt Count 29 L* (150-450) 10^3/uL Neut % (Auto) 48.4 (42.2-75.2) % Lymph % (Auto) 11.1 L (20.5-50.1) % [place] % (Auto) 14.5 H (2-8) % Eos % (Auto) 25.8 H (1.0-3.0) % Baso % (Auto) 0.2 (0.0-1.0) % CARLOS EDUARDO Results - Last 24 hrs: Microbiology 09/02/17 23:55 Aerobic Blood Culture - Preliminary Blood - Venous - Lab Draw NO GROWTH AFTER 4 DAYS Anaerobic Blood Culture - Preliminary NO GROWTH AFTER 4 DAYS 09/02/17 23:00 Aerobic Blood Culture - Preliminary Blood - Venous NO GROWTH AFTER 4 DAYS Anaerobic Blood Culture - Preliminary NO GROWTH AFTER 4 DAYS Med Orders - Current: Current Medications Bisacodyl (Dulcolax) 10 mg RECTAL DAILY PRN PRN Reason: Constipation Last Admin: 09/07/17 05:54 Dose: 10 mg Cyclosporine (Restasis) 0 each EYEBOTH BID [facility] Last Admin: 09/07/17 09:30 Dose: 1 drop Furosemide (Lasix) 80 mg IVPUSH BID@0900,1400 [facility] Last Admin: 09/07/17 09:32 Dose: 80 mg Levofloxacin/Dextrose 750 mg/ (Premix) 150 mls @ 100 mls/hr IV Q24H [facility] Last Infusion: 09/07/17 01:15 Dose: Infused Lactulose (Cephulac) 20 gm PO BID [facility] Last Admin: 09/07/17 09:29 Dose: 20 gm Levothyroxine Sodium (Levothyroxine) 112 mcg PO DAILY@0600 [facility] Last Admin: 09/07/17 05:47 Dose: 112 mcg Ondansetron HCl (Zofran Odt) 4 mg PO Q4H PRN PRN Reason: nausea, able to take PO Pantoprazole Sodium (Protonix) 40 mg PO BIDMEALS [facility] Last Admin: 09/07/17 08:16 Dose: 40 mg Ursodiol 500 Mg (Pt's Own Med) 0 each PO BID [facility] Last Admin: 09/07/17 09:30 Dose: 1 each Senna/Docusate Sodium (Senna Plus) 2 tab PO BEDTIME PRN PRN Reason: Constipation Last Admin: 09/06/17 20:32 Dose: 2 tab Sodium Chloride (Saline Flush) 10 ml FLUSH ASDIRECTED PRN PRN Reason: Keep Vein Open Last Admin: 09/07/17 09:48 Dose: 10 ml Sodium Chloride (Sodium Chloride) 1 gm PO TID [facility] Last Admin: 09/07/17 09:29 Dose: 1 gm Spironolactone (Aldactone) 150 mg PO DAILY [facility] Last Admin: 09/07/17 09:28 Dose: 150 mg Tramadol HCl (Ultram) 25 mg PO Q6HR PRN PRN Reason: Pain Last Admin: 09/07/17 09:30 Dose: 25 mg Zolpidem Tartrate (Ambien) 5 mg PO BEDTIME PRN PRN Reason: Sleep Last Admin: 09/06/17 20:32 Dose: 5 mg Discontinued Medications Docusate Sodium (Colace) 100 mg PO BID PRN PRN Reason: Constipation Last Admin: 09/05/17 01:20 Dose: 100 mg Furosemide (Lasix) 40 mg IVPUSH Q8H [facility] Last Admin: 09/06/17 09:15 Dose: 40 mg Furosemide (Lasix) 80 mg IVPUSH BID [facility] Heparin Sodium (Porcine) (Heparin Sodium) 5,000 units SUBCUT Q8HR [facility] Last Admin: 09/04/17 06:31 Dose: Not Given Heparin Sodium (Porcine) (Heparin Sodium) 5,000 units SUBCUT Q12HR [facility] Last Admin: 09/06/17 09:10 Dose: 5,000 units Levofloxacin/Dextrose 750 mg/ (Premix) 150 mls @ 100 mls/hr IV ONETIME ONE Stop: 09/03/17 01:11 Last Admin: 09/02/17 23:48 Dose: 100 mls/hr Vancomycin HCl 1.25 gm/ Sodium (Chloride) 250 mls @ 166.667 mls/hr IV Q12H [facility] Last Admin: 09/04/17 01:29 Dose: 166.667 mls/hr Vancomycin HCl 1.25 gm/ Sodium (Chloride) 250 mls @ 166.667 mls/hr IV Q18H [facility] Last Admin: 09/06/17 09:10 Dose: 166.667 mls/hr Levothyroxine Sodium (Levothyroxine) 112 mcg PO DAILY [facility] Last Admin: 09/06/17 09:14 Dose: 112 mcg Tramadol HCl (Ultram) 50 mg PO ONETIME ONE Stop: 09/06/17 14:02 Last Admin: 09/06/17 14:24 Dose: 50 mg Vancomycin HCl (Pharmacy To Dose - Vancomycin) 1 dose .XX ASDIRECTED [facility] - Exam Quality Assessment: Reports: DVT Prophylaxis General: Reports: Alert, Oriented HEENT: Reports: Pupils Equal, Pupils Reactive, EOMI, Mucous Membr. Moist/[place] Neck: Reports: Supple Lungs: Reports: Clear to Auscultation, Normal Respiratory Effort Cardiovascular: Reports: Regular Rate, Regular Rhythm GI/Abdominal Exam: Normal Bowel Sounds, Soft, Non-Tender, No Organomegaly, No Distention, No Abnormal Bruit, No Mass, Pelvis Stable (Female) Exam: Normal External Exam, Normal Speculum Exam, Normal Bimanual Exam Rectal (Female) Exam: Deferred Back Exam: Reports: Normal Inspection, Full Range of Motion Extremities: Normal Range of Motion, Non-Tender, Normal Capillary Refill, Pedal Edema, Other (Resolving leg edema) Skin: Reports: Warm, Dry, Intact Wound/Incisions: Reports: Healing Well Neurological: Reports: No New Focal Deficit Psy/Mental Status: Reports: Alert, Normal Affect, Normal Mood
[2017-09-07 11:59] VITALS: BP 96/43
== END 2017-09-07 13:45 | disposition home or self-care (01) | DRG 194 ==
LOC: DL.ED 22:29 → UNDOADMIN 09-03 00:02 → DL.MS 09-03 00:02
PROVIDERS: ADMIT Internal Medicine; ATTEND Internal Medicine
DX: J18.9 Pneumonia, unspecified organism (principal); R06.02 Shortness of breath; R50.9 Fever, unspecified; R60.9 Edema, unspecified; H33.23 Serous retinal detachment, bilateral; R18.8 Other ascites; E87.1 Hypo-osmolality and hyponatremia; I85.00 Esophageal varices without bleeding; K74.60 Unspecified cirrhosis of liver; R78.81 Bacteremia; K76.0 Fatty (change of) liver, not elsewhere classified; D68.4 Acquired coagulation factor deficiency; H54.7 Unspecified visual loss; I25.10 Atherosclerotic heart disease of native coronary artery without angina pectoris; E78.00 Pure hypercholesterolemia, unspecified; D69.3 Immune thrombocytopenic purpura; I10 Essential (primary) hypertension; J45.909 Unspecified asthma, uncomplicated; E11.40 Type 2 diabetes mellitus with diabetic neuropathy, unspecified; E03.9 Hypothyroidism, unspecified; E66.9 Obesity, unspecified; D64.9 Anemia, unspecified; B35.3 Tinea pedis; Z90.49 Acquired absence of other specified parts of digestive tract; K74.3 Primary biliary cirrhosis; E87.70 Fluid overload, unspecified; R10.9 Unspecified abdominal pain; R31.9 Hematuria, unspecified; K72.90 Hepatic failure, unspecified without coma; K59.00 Constipation, unspecified; D69.59 Other secondary thrombocytopenia; E88.09 Other disorders of plasma-protein metabolism, not elsewhere classified; Z87.440 Personal history of urinary (tract) infections; Z88.8 Allergy status to other drugs, medicaments and biological substances; Z79.899 Other long term (current) drug therapy; Z87.891 Personal history of nicotine dependence; Z68.35 Body mass index [BMI] 35.0-35.9, adult
CPT/HCPCS: 36415; 71046; 80053; 82140; 83605; 83880; 84484; 85025; 87040 ×2; 87804 ×2; 93005; 96365; 99285; J1956; 80048; 80202; A9270-GY; J1644; J1940; J3370; J7050

== ENCOUNTER 2017-09-07 22:27 | Emergency (ER) | payer MEDICARE, MEDICAID, OTHER ==
[2017-09-07] MEDS ORDERED: Sodium Chloride 0.9% 10 ML Syringe FLUSH PRN (22:32)
--- NOTE | 2017-09-08 00:08 | EDM.PDOC ---
ED HPI GENERAL MEDICAL PROBLEM - General Chief Complaint: BACKBREAKER Problem Stated Complaint: BY AMBULANCE BLEEDING Time Seen by Provider: 09/07/17 22:30 Source of Information: Reports: Patient, EMS, EMS Notes Reviewed, RN, RN Notes Reviewed History Limitations: Reports: No Limitations - History of Present Illness INITIAL COMMENTS - FREE TEXT/NARRATIVE: Pt presents to the ER per [facility] with c/o vaginal bleeding. Pt states she was just discharged from [facility]. She states she was in the hospital for vaginal bleeding and gross hematuria. Pt states as soon as she got home from the hospital this evening, she went to the bathroom and had began having vaginal bleeding again. Patient denies any new pain, but reports chronic pain from liver failure. Onset: Today, Sudden Abdomen Pain Score (Numeric/FACES): 9 - Related Data Allergies Allergy/AdvReac Type Severity Reaction Status Date / Time acetaminophen Allergy Other Verified 09/07/17 22:32 aspirin Allergy Other Verified 09/07/17 22:32 clopidogrel [From Plavix] Allergy Other Verified 09/07/17 22:32 ibuprofen Allergy Other Verified 09/07/17 22:32 Home Meds: Home Meds Polyvinyl Alcohol/Povidone [Artificial Tears Drops] 1 drop EYEBOTH BID PRN 03/04 [History] Pantoprazole Sodium 40 mg PO BIDMEALS 03/10/17 [History] Spironolactone [Aldactone] 150 mg PO DAILY 03/10/17 [History] Hydroxypropyl Cellulose [Lacrisert] 1 each EYEBOTH DAILY 07/29/17 [History] Levothyroxine 112 mcg PO DAILY 07/29/17 [History] cycloSPORINE [Restasis] 1 drop EYEBOTH BID 07/29/17 [History] Hydrocortisone [Hydrocortisone 2.5% Crm] 1 applic TOP QID PRN 08/28/17 [History] Ursodiol 500 mg PO BID 08/28/17 [History] traMADol [Ultram] 25 mg PO Q6HR PRN 08/28/17 [History] Furosemide 80 mg PO BIDAC 30 Days #60 tablet 09/07/17 [Rx] Lactulose [Cephulac] 20 gm PO BID 30 Days #2 cup 09/07/17 [Rx] Sodium Chloride 1 gm PO TID 30 Days #90 tablet 04/08/18 [Rx] Zolpidem [Ambien] 5 mg PO BEDTIME PRN 15 Days #15 tablet 09/07/17 [Rx] Past Medical History HEENT History: Reports: Cataract, Impaired Vision, Other (See Below) Other HEENT History: RETINAL DETACHMENT - BILATERAL EYES; WEARS GLASSES Cardiovascular History: Reports: CAD, High Cholesterol, Hypertension Respiratory History: Reports: Asthma, SOB Gastrointestinal History: Reports: Cirrhosis, Other (See Below) Other Gastrointestinal History: Faatty liver. 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 Immunologic History: Reports: None Oncologic (Cancer) History: Reports: Other (See Below) Other Oncologic History: PRECANCEROUS CERVICAL POLYP REMOVED Dermatologic History: Reports: Other (See Below) Other Dermatologic History: TINEA PEDIS - Infectious Disease History Infectious Disease History: Reports: Chicken Pox, Measles - Past Surgical History Head Surgeries/Procedures: Reports: None HEENT Surgical History: Reports: Detached Retina Cardiovascular Surgical History: Reports: Other (See Below) Other Cardiovascular Surgeries/Procedures: CARDIAC CATHETERIZATION Respiratory Surgical History: Reports: None GI Surgical History: Reports: Cholecystectomy, Colonoscopy, EGD Female Surgical History: Reports: Tubal Ligation Neurological Surgical History: Reports: None Musculoskeletal Surgical History: Reports: Other (See Below) Other Musculoskeletal Surgeries/Procedures:: RIGHT ANKLE SURGERY; RIGHT BUNIOECTOMY Oncologic Surgical History: Reports: None Dermatological Surgical History: Reports: Skin Graft Social & Family History - Family History Family Medical History: Noncontributory - Tobacco Use Smoking Status *Q: Never Smoker Years of Tobacco use: 15 Packs/Tins Daily: 0.1 Used Tobacco, but Quit: Yes Month/Year Tobacco Last Used: July 2017 Second Hand Smoke Exposure: No - Caffeine Use Caffeine Use: Reports: Soda - Recreational Drug Use Recreational Drug Use: No Drug Use in Last 12 Months: No ED ROS GENERAL - Review of Systems Review Of Systems: ROS reveals no pertinent complaints other than HPI. ED EXAM, GI/ABD - Physical Exam Exam: See Below Exam Limited By: Physical Impairment General Appearance: Alert, WD/WN, No Apparent Distress Eyes: Bilateral: Normal Appearance, EOMI Ears: Normal External Exam, Hearing Grossly Normal Nose: Normal Inspection Throat/Mouth: Normal Inspection, Normal Voice, No Airway Compromise Head: Atraumatic, Normocephalic Neck: Normal Inspection, Supple, Non-Tender, Full Range of Motion Respiratory/Chest: No Respiratory Distress, No Accessory Muscle Use, Chest Non- Tender, Crackles (bases bilaterally) Cardiovascular: Normal Peripheral Pulses, Regular Rate, Rhythm, No Edema, No Gallop, No JVD, No Murmur, No Rub GI/Abdominal Exam: Normal Bowel Sounds, No Abnormal Bruit, No Mass, Pelvis Stable, Tender, Other (firm and edematous). No: Soft, No Distention (Female) Exam: Deferred Rectal (Female) Exam: Deferred Back Exam: Normal Inspection, Full Range of Motion, NT Extremities: Normal Capillary Refill, Pedal Edema, Limited Range of Motion Neurological: Alert, Oriented, Normal Cognition Psychiatric: Normal Affect, Normal Mood Skin Exam: Warm, Dry, Intact, Normal Color, No Rash Lymphatic: No Adenopathy Course - Vital Signs Last Recorded V/S: Last Vital Signs Temp 97.6 F 09/07/17 22:28 Pulse 89 09/08/17 00:59 Resp 18 09/08/17 00:59 BP 99/66 09/08/17 00:59 Pulse Ox 92 L 09/08/17 00:59 - Orders/Labs/Meds Orders: Active Orders 24 hr Category Date Time Status Insert Rausch Catheter [Insert Urinary Catheter] [OM.PC] Care 09/07/17 22:45 Ordered Q24H Peripheral IV Care [RC] . DIRECTED Care 09/07/17 22:33 Active Urinary Catheter Assessment [RC] ASDIRECTED Care 09/07/17 22:33 Active UA W/MICROSCOPIC [URIN] Stat Lab 09/07/17 22:35 Ordered Peripheral IV Insertion Adult [OM.PC] Stat Oth 09/07/17 22:32 Ordered Labs: Laboratory Tests 09/07/17 09/07/17 09/07/17 Range/Units 22:35 23:00 23:00 WBC 13.0 H (5.0-10.0) 10^3/uL RBC 2.73 L (4.2-5.4) 10^6/uL Hgb 10.4 L (12.0-16.0) g/dL Hct 28.3 L (37.0-47.0) % MCV 103.7 H (80-100) fL MCH 38.1 H (27.0-34.0) pg MCHC 36.7 H (33.0-35.0) g/dL Plt Count 19 L* (150-450) 10^3/uL Neut % (Auto) 58.0 (42.2-75.2) % Lymph % (Auto) 7.5 L (20.5-50.1) % [place] % (Auto) 14.1 H (2-8) % Eos % (Auto) 20.2 H (1.0-3.0) % Baso % (Auto) 0.2 (0.0-1.0) % Add Manual Diff Yes Neutrophils % (Manual) 54 (42-75) % Band Neutrophils % 10 % Lymphocytes % (Manual) 9 L (20-50) % Atypical Lymphs % 0 % Monocytes % (Manual) 10 H (2-8) % Eosinophils % (Manual) 17 H (1-3) % Basophils % (Manual) 0 Toxic Granulation 1+ slight Platelet Estimate Marked dec Hypochromasia 1+ slight Poikilocytosis 1+ slight Anisocytosis 1+ slight Target Cells 1+ slight Sodium 121 L (135-145) mmol/L Potassium 4.4 (3.6-5.0) mmol/L Chloride 89 L (101-111) mmol/L Carbon Dioxide 26.0 (21.0-31.0) mmol/L Anion Gap 10.4 BUN 20 H (7-18) mg/dL Creatinine 1.6 H (0.6-1.3) mg/dL Est Cr Clr Drug Dosing 34.54 mL/min Estimated GFR (MDRD) 32 BUN/Creatinine Ratio 12.50 Glucose 91 (74-105) mg/dL Calcium 8.8 (8.4-10.2) mg/dl Total Bilirubin 8.0 H (0.2-1.0) mg/dL AST 34 (10-42) IU/L ALT 21 (10-60) IU/L Alkaline Phosphatase 134 H (42-121) IU/L Total Protein 5.3 L (6.7-8.2) g/dl Albumin 2.0 L (3.2-5.5) g/dl Globulin 3.3 Albumin/Globulin Ratio 0.61 Urine Color Yellow (YELLOW) Urine Appearance Slightly cloudy (CLEAR) Urine pH 5.5 (5.0-9.0) Ur Specific [place] 1.015 (1.005-1.030) Urine Protein Negative (NEGATIVE) Urine Glucose (UA) Negative (NEGATIVE) Urine Ketones Negative (NEGATIVE) Urine Occult Blood Negative (NEGATIVE) Urine Nitrite Negative (NEGATIVE) Urine Bilirubin Small H (NEGATIVE) Urine Urobilinogen 0.2 (0.2-1.0) mg/dL Ur Leukocyte Esterase Negative (NEGATIVE) Urine RBC Not seen /HPF Urine WBC 0-5 (0-5/HPF) /HPF Ur Epithelial Cells Occasional /HPF Urine Bacteria Few (0-FEW/HPF) /HPF Meds: Medications Discontinued Medications Generic Name Dose Route Start Last Admin Trade Name Freq PRN Reason Stop Dose Admin Sodium Chloride 10 ml 09/07/17 22:32 Saline Flush FLUSH ASDIRECTED PRN Keep Vein Open - Re-Assessments/Exams Free Text/Narrative Re-Assessment/Exam: 09/08/17 03:58 Explained to the patient that there was very little change in her labwork today as opposed to yesterday. Explained to patient that I highly encourage her to follow up with her primary care facility tomorrow. She may need an abdominal/ pelvic ultrasound to find the reason of the vaginal bleeding. She would need a referral from [facility] for an BACKBREAKER consult. Pt states understanding. Departure - Departure Time of Disposition: 00:07 Disposition: Home, Self-Care 01 Condition: Fair Clinical Impression: Vaginal bleeding - Discharge Information Instructions: Menorrhagia, [id number] Referrals: PCP,[facility] [Primary Care Provider] - Forms: ED Department Discharge Additional Instructions: Follow up with your primary care facility in the morning. - My Orders Last 24 Hours: My Active Orders 09/07/17 22:32 Peripheral IV Insertion Adult [OM.PC] Stat 09/07/17 22:33 Peripheral IV Care [RC] . DIRECTED Urinary Catheter Assessment [RC] ASDIRECTED 09/07/17 22:35 UA W/MICROSCOPIC [URIN] Stat 09/07/17 22:45 Insert Rausch Catheter [Insert Urinary Catheter] [OM.PC] Q24H - Assessment/Plan Last 24 Hours: My Active Orders 09/07/17 22:32 Peripheral IV Insertion Adult [OM.PC] Stat 09/07/17 22:33 Peripheral IV Care [RC] . DIRECTED Urinary Catheter Assessment [RC] ASDIRECTED 09/07/17 22:35 UA W/MICROSCOPIC [URIN] Stat 09/07/17 22:45 Insert Rausch Catheter [Insert Urinary Catheter] [OM.PC] Q24H
[2017-09-08 00:59] VITALS: BP 99/66
== END 2017-09-08 01:07 | disposition home or self-care (01) ==
LOC: DL.ED 22:27
DX: N93.9 Abnormal uterine and vaginal bleeding, unspecified (principal); E78.00 Pure hypercholesterolemia, unspecified; I10 Essential (primary) hypertension; E11.40 Type 2 diabetes mellitus with diabetic neuropathy, unspecified; E03.9 Hypothyroidism, unspecified; Z88.6 Allergy status to analgesic agent; Z88.8 Allergy status to other drugs, medicaments and biological substances; Z79.899 Other long term (current) drug therapy; Z87.891 Personal history of nicotine dependence
CPT/HCPCS: 36415; 80053; 81001; 85025; 99283; 99285

== ENCOUNTER 2017-09-12 08:13 | Emergency (ER) | payer MEDICARE, OTHER ==
--- NOTE | 2017-09-12 08:49 | EDM.PDOC ---
ED HPI GENERAL MEDICAL PROBLEM - General Chief Complaint: Neurological Problem Stated Complaint: AMBULANCE Time Seen by Provider: 09/12/17 08:35 Source of Information: Reports: Patient, Family History Limitations: Reports: No Limitations - History of Present Illness INITIAL COMMENTS - FREE TEXT/NARRATIVE: This 67 yo female patient was brought to the ED by [facility] due to increased confusion, loss of urinary continence and increased weakness. The patient reports she has also been having increased abdominal pain, but could not remember exactly when it started. The patient was admitted to [facility] from 09/03/17-09/07/17 due to possible pneumonia, leukocytosis, fluid overload and hyponatremia. The patient has a history of primary biliary cirrhosis, esophageal varices, diet controlled diabetes, thrombocytopenia and chronic hyponatremia. During her hospital stay, the patient was given IV levaquin, vanco and lasix which resulted in improvement of her symptoms. The patient's family report that the patient started to have increased confusion, difficulties urinating and increased swelling yesterday which seems to have gotten worse over the night. Onset Date: 09/11/17 Duration: Constant, Getting Worse Location: Reports: Abdomen (left sided abdominal pain (chronic but increased pain today)), Generalized Quality: Reports: Ache Severity: Moderate Improves with: Reports: None Worsens with: Reports: None Context: Reports: Other Associated Symptoms: Reports: Nausea/Vomiting, Weakness Treatments [employer]PER[employer] HELPER: Reports: IV/IO Abdominal Pain Score (Numeric/FACES): 10 - Related Data Allergies Allergy/AdvReac Type Severity Reaction Status Date / Time acetaminophen Allergy Other Verified 09/12/17 08:31 aspirin Allergy Other Verified 09/12/17 08:31 clopidogrel [From Plavix] Allergy Other Verified 09/12/17 08:31 ibuprofen Allergy Other Verified 09/12/17 08:31 Home Meds: Home Meds Polyvinyl Alcohol/Povidone [Artificial Tears Drops] 1 drop EYEBOTH BID PRN 03/04 [History] Pantoprazole Sodium 40 mg PO BIDMEALS 03/10/17 [History] Spironolactone [Aldactone] 150 mg PO DAILY 03/10/17 [History] Hydroxypropyl Cellulose [Lacrisert] 1 each EYEBOTH DAILY 07/29/17 [History] Levothyroxine 112 mcg PO DAILY 07/29/17 [History] cycloSPORINE [Restasis] 1 drop EYEBOTH BID 07/29/17 [History] Hydrocortisone [Hydrocortisone 2.5% Crm] 1 applic TOP QID PRN 08/28/17 [History] Ursodiol 500 mg PO BID 08/28/17 [History] traMADol [Ultram] 25 mg PO Q6HR PRN 08/28/17 [History] Furosemide 80 mg PO BIDAC 30 Days #60 tablet 09/07/17 [Rx] Lactulose [Cephulac] 20 gm PO BID 30 Days #2 cup 09/07/17 [Rx] Sodium Chloride 1 gm PO TID 30 Days #90 tablet 09/07/17 [Rx] Zolpidem [Ambien] 5 mg PO BEDTIME PRN 15 Days #15 tablet 09/07/17 [Rx] Past Medical History HEENT History: Reports: Cataract, Impaired Vision, Other (See Below) Other HEENT History: RETINAL DETACHMENT - BILATERAL EYES; WEARS GLASSES Cardiovascular History: Reports: CAD, High Cholesterol, Hypertension Respiratory History: Reports: Asthma, SOB Gastrointestinal History: Reports: Cirrhosis, Other (See Below) Other Gastrointestinal History: Faatty liver. 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 Immunologic History: Reports: None Oncologic (Cancer) History: Reports: Other (See Below) Other Oncologic History: PRECANCEROUS CERVICAL POLYP REMOVED Dermatologic History: Reports: Other (See Below) Other Dermatologic History: TINEA PEDIS - Infectious Disease History Infectious Disease History: Reports: Chicken Pox, Measles - Past Surgical History Head Surgeries/Procedures: Reports: None HEENT Surgical History: Reports: Detached Retina Cardiovascular Surgical History: Reports: Other (See Below) Other Cardiovascular Surgeries/Procedures: CARDIAC CATHETERIZATION Respiratory Surgical History: Reports: None GI Surgical History: Reports: Cholecystectomy, Colonoscopy, EGD Female Surgical History: Reports: Tubal Ligation Neurological Surgical History: Reports: None Musculoskeletal Surgical History: Reports: Other (See Below) Other Musculoskeletal Surgeries/Procedures:: RIGHT ANKLE SURGERY; RIGHT BUNIOECTOMY Oncologic Surgical History: Reports: None Dermatological Surgical History: Reports: Skin Graft Social & Family History - Family History Family Medical History: Noncontributory - Tobacco Use Smoking Status *Q: Never Smoker Years of Tobacco use: 15 Packs/Tins Daily: 0.1 Used Tobacco, but Quit: Yes Month/Year Tobacco Last Used: July 2017 Second Hand Smoke Exposure: No - Caffeine Use Caffeine Use: Reports: Soda - Recreational Drug Use Recreational Drug Use: No Drug Use in Last 12 Months: No ED ROS GENERAL - Review of Systems Review Of Systems: ROS reveals no pertinent complaints other than HPI. ED EXAM, NEURO - Physical Exam Exam: See Below Exam Limited By: No Limitations General Appearance: Alert, WD/WN, Moderate Distress, Obese Eye Exam: Bilateral Eye: PERRL, Other (jaundice) Ears: Normal External Exam, Normal Canal, Hearing Grossly Normal, Normal TMs Nose: Normal Inspection, Normal Mucosa, No Blood Throat/Mouth: Normal Inspection, Normal Lips, Normal Teeth, Normal Gums, Normal Oropharynx, Normal Voice, No Airway Compromise Head Exam: Atraumatic, Normocephalic Neck: Normal Inspection, Supple, Non-Tender, Full Range of Motion Respiratory/Chest: No Respiratory Distress, Lungs Clear, Normal Breath Sounds, No Accessory Muscle Use, Other (The patient has bruising to her right chest with no known cause) Cardiovascular: Normal Peripheral Pulses, Regular Rate, Rhythm GI/Abdominal: Normal Bowel Sounds, Distended (diffuse), Tender (left sided) (Female) Exam: Deferred Rectal (Female) Exam: Deferred Neurological: Alert, Normal Mood/Affect, Normal Dorsiflexion, CN II-XII Intact Back Exam: Normal Inspection, Full Range of Motion, NT Extremities: Pedal Edema (3+) Psychiatric: Normal Affect, Normal Mood Skin Exam: Jaundice, Petechiae (diffuse), Other (numerous bruises throughout body) Course - Vital Signs Last Recorded V/S: Last Vital Signs Temp 36.6 C 09/12/17 08:22 Pulse 77 09/12/17 09:31 Resp 16 09/12/17 09:31 BP 92/37 L 09/12/17 09:31 Pulse Ox 90 L 09/12/17 09:31 - Orders/Labs/Meds Orders: Active Orders 24 hr Category Date Time Status CULTURE BLOOD [BC] Stat Lab 09/12/17 08:30 Received DRUG SCREEN URINE BIORAD [URCHEM] Stat Lab 09/12/17 09:25 Ordered UA W/MICROSCOPIC [URIN] Stat Lab 09/12/17 09:25 Ordered Labs: Laboratory Tests 09/12/17 09/12/17 09/12/17 Range/Units 08:30 08:30 08:30 WBC (5.0-10.0) 10^3/uL RBC (4.2-5.4) 10^6/uL Hgb (12.0-16.0) g/dL Hct (37.0-47.0) % MCV (80-100) fL MCH (27.0-34.0) pg MCHC (33.0-35.0) g/dL Plt Count (150-450) 10^3/uL Neut % (Auto) (42.2-75.2) % Lymph % (Auto) (20.5-50.1) % [place] % (Auto) (2-8) % Eos % (Auto) (1.0-3.0) % Baso % (Auto) (0.0-1.0) % Add Manual Diff Neutrophils % (Manual) (42-75) % Lymphocytes % (Manual) (20-50) % Monocytes % (Manual) (2-8) % Eosinophils % (Manual) (1-3) % Metamyelocytes % Myelocytes % Toxic Granulation Clumped Platelets Plt Morphology Comment Target Cells Amanda Cells Sodium (135-145) mmol/L Potassium (3.6-5.0) mmol/L Chloride (101-111) mmol/L Carbon Dioxide (21.0-31.0) mmol/L Anion Gap BUN (7-18) mg/dL Creatinine (0.6-1.3) mg/dL Est Cr Clr Drug Dosing mL/min Estimated GFR (MDRD) BUN/Creatinine Ratio Glucose (74-105) mg/dL Lactic Acid 1.5 (0.5-2.2) mmol/L Calcium (8.4-10.2) mg/dl Magnesium 2.0 (1.8-2.5) mg/dL Total Bilirubin (0.2-1.0) mg/dL AST (10-42) IU/L ALT (10-60) IU/L Alkaline Phosphatase (42-121) IU/L Ammonia 15 (11-35) umol/L B-Natriuretic Peptide (0-100) pg/ml Total Protein (6.7-8.2) g/dl Albumin (3.2-5.5) g/dl Globulin Albumin/Globulin Ratio Amylase 35 (28-100) U/L Lipase 24 (22-51) U/L Urine Color (YELLOW) Urine Appearance (CLEAR) Urine pH (5.0-9.0) Ur Specific [place] (1.005-1.030) Urine Protein (NEGATIVE) Urine Glucose (UA) (NEGATIVE) Urine Ketones (NEGATIVE) Urine Occult Blood (NEGATIVE) Urine Nitrite (NEGATIVE) Urine Bilirubin (NEGATIVE) Urine Urobilinogen (0.2-1.0) mg/dL Ur Leukocyte Esterase (NEGATIVE) Urine RBC /HPF Urine WBC (0-5/HPF) /HPF Ur Epithelial Cells /HPF Calcium Oxalate Crystal /HPF Amorphous Sediment (0/HPF) /HPF Urine Bacteria (0-FEW/HPF) /HPF Urine Mucus /LPF Urine Yeast (0/HPF) /HPF Salicylates < 4 Urine Opiates Screen (NEGATIVE) Ur Oxycodone Screen (NEGATIVE) Urine Methadone Screen (NEGATIVE) Acetaminophen < 10 Ur Barbiturates Screen (NEGATIVE) U Tricyclic Antidepress (NEGATIVE) Ur Phencyclidine Scrn (NEGATIVE) Ur Amphetamine Screen (NEGATIVE) U Methamphetamines Scrn (NEGATIVE) Urine MDMA Screen (NEGATIVE) U Benzodiazepines Scrn (NEGATIVE) Urine Cocaine Screen (NEGATIVE) U Marijuana (THC) Screen (NEGATIVE) Ethyl Alcohol < 5 mg/dL 09/12/17 09/12/17 09/12/17 Range/Units 08:30 08:30 08:30 WBC 12.3 H (5.0-10.0) 10^3/uL RBC 2.71 L (4.2-5.4) 10^6/uL Hgb 10.2 L (12.0-16.0) g/dL Hct 28.5 L (37.0-47.0) % MCV 105.2 H (80-100) fL MCH 37.6 H (27.0-34.0) pg MCHC 35.8 H (33.0-35.0) g/dL Plt Count 9 L* (150-450) 10^3/uL Neut % (Auto) 40.8 L (42.2-75.2) % Lymph % (Auto) 11.5 L (20.5-50.1) % [place] % (Auto) 17.0 H (2-8) % Eos % (Auto) 30.5 H (1.0-3.0) % Baso % (Auto) 0.2 (0.0-1.0) % Add Manual Diff Yes Neutrophils % (Manual) 42 (42-75) % Lymphocytes % (Manual) 9 L (20-50) % Monocytes % (Manual) 10 H (2-8) % Eosinophils % (Manual) 37 H (1-3) % Metamyelocytes % 1 Myelocytes % 1 Toxic Granulation 2+ moderate Clumped Platelets See note Plt Morphology Comment Target Cells 1+ slight [place] Cells 3+ marked Sodium 122 L (135-145) mmol/L Potassium 4.1 (3.6-5.0) mmol/L Chloride 90 L (101-111) mmol/L Carbon Dioxide 26.0 (21.0-31.0) mmol/L Anion Gap 10.1 BUN 21 H (7-18) mg/dL Creatinine 1.7 H (0.6-1.3) mg/dL Est Cr Clr Drug Dosing 34.48 mL/min Estimated GFR (MDRD) 30 BUN/Creatinine Ratio 12.35 Glucose 80 (74-105) mg/dL Lactic Acid (0.5-2.2) mmol/L Calcium 9.3 (8.4-10.2) mg/dl Magnesium (1.8-2.5) mg/dL Total Bilirubin 10.1 H (0.2-1.0) mg/dL AST 41 (10-42) IU/L ALT 24 (10-60) IU/L Alkaline Phosphatase 145 H (42-121) IU/L Ammonia (11-35) umol/L B-Natriuretic Peptide 13 (0-100) pg/ml Total Protein 5.3 L (6.7-8.2) g/dl Albumin 2.1 L (3.2-5.5) g/dl Globulin 3.2 Albumin/Globulin Ratio 0.66 Amylase (28-100) U/L Lipase (22-51) U/L Urine Color (YELLOW) Urine Appearance (CLEAR) Urine pH (5.0-9.0) Ur Specific [place] (1.005-1.030) Urine Protein (NEGATIVE) Urine Glucose (UA) (NEGATIVE) Urine Ketones (NEGATIVE) Urine Occult Blood (NEGATIVE) Urine Nitrite (NEGATIVE) Urine Bilirubin (NEGATIVE) Urine Urobilinogen (0.2-1.0) mg/dL Ur Leukocyte Esterase (NEGATIVE) Urine RBC /HPF Urine WBC (0-5/HPF) /HPF Ur Epithelial Cells /HPF Calcium Oxalate Crystal /HPF Amorphous Sediment (0/HPF) /HPF Urine Bacteria (0-FEW/HPF) /HPF Urine Mucus /LPF Urine Yeast (0/HPF) /HPF Salicylates Urine Opiates Screen (NEGATIVE) Ur Oxycodone Screen (NEGATIVE) Urine Methadone Screen (NEGATIVE) Acetaminophen Ur Barbiturates Screen (NEGATIVE) U Tricyclic Antidepress (NEGATIVE) Ur Phencyclidine Scrn (NEGATIVE) Ur Amphetamine Screen (NEGATIVE) U Methamphetamines Scrn (NEGATIVE) Urine MDMA Screen (NEGATIVE) U Benzodiazepines Scrn (NEGATIVE) Urine Cocaine Screen (NEGATIVE) U Marijuana (THC) Screen (NEGATIVE) Ethyl Alcohol mg/dL 09/12/17 09/12/17 Range/Units 09:25 09:25 WBC (5.0-10.0) 10^3/uL RBC (4.2-5.4) 10^6/uL Hgb (12.0-16.0) g/dL Hct (37.0-47.0) % MCV (80-100) fL MCH (27.0-34.0) pg MCHC (33.0-35.0) g/dL Plt Count (150-450) 10^3/uL Neut % (Auto) (42.2-75.2) % Lymph % (Auto) (20.5-50.1) % [place] % (Auto) (2-8) % Eos % (Auto) (1.0-3.0) % Baso % (Auto) (0.0-1.0) % Add Manual Diff Neutrophils % (Manual) (42-75) % Lymphocytes % (Manual) (20-50) % Monocytes % (Manual) (2-8) % Eosinophils % (Manual) (1-3) % Metamyelocytes % Myelocytes % Toxic Granulation Clumped Platelets Plt Morphology Comment Target Cells [place] Cells Sodium (135-145) mmol/L Potassium (3.6-5.0) mmol/L Chloride (101-111) mmol/L Carbon Dioxide (21.0-31.0) mmol/L Anion Gap BUN (7-18) mg/dL Creatinine (0.6-1.3) mg/dL Est Cr Clr Drug Dosing mL/min Estimated GFR (MDRD) BUN/Creatinine Ratio Glucose (74-105) mg/dL Lactic Acid (0.5-2.2) mmol/L Calcium (8.4-10.2) mg/dl Magnesium (1.8-2.5) mg/dL Total Bilirubin (0.2-1.0) mg/dL AST (10-42) IU/L ALT (10-60) IU/L Alkaline Phosphatase (42-121) IU/L Ammonia (11-35) umol/L B-Natriuretic Peptide (0-100) pg/ml Total Protein (6.7-8.2) g/dl Albumin (3.2-5.5) g/dl Globulin Albumin/Globulin Ratio Amylase (28-100) U/L Lipase (22-51) U/L Urine Color [place] (YELLOW) Urine Appearance Turbid (CLEAR) Urine pH 5.0 (5.0-9.0) Ur Specific [place] 1.015 (1.005-1.030) Urine Protein Negative (NEGATIVE) Urine Glucose (UA) Negative (NEGATIVE) Urine Ketones Negative (NEGATIVE) Urine Occult Blood Moderate H (NEGATIVE) Urine Nitrite Negative (NEGATIVE) Urine Bilirubin Moderate H (NEGATIVE) Urine Urobilinogen 0.2 (0.2-1.0) mg/dL Ur Leukocyte Esterase Negative (NEGATIVE) Urine RBC >100 H /HPF Urine WBC 0-5 (0-5/HPF) /HPF Ur Epithelial Cells Moderate H /HPF Calcium Oxalate Crystal Rare /HPF Amorphous Sediment Few (0/HPF) /HPF Urine Bacteria Few (0-FEW/HPF) /HPF Urine Mucus Few H /LPF Urine Yeast Few H (0/HPF) /HPF Salicylates Urine Opiates Screen Positive H (NEGATIVE) Ur Oxycodone Screen Negative (NEGATIVE) Urine Methadone Screen Negative (NEGATIVE) Acetaminophen Ur Barbiturates Screen Negative (NEGATIVE) U Tricyclic Antidepress Negative (NEGATIVE) Ur Phencyclidine Scrn Negative (NEGATIVE) Ur Amphetamine Screen Positive H (NEGATIVE) U Methamphetamines Scrn Negative (NEGATIVE) Urine MDMA Screen Negative (NEGATIVE) U Benzodiazepines Scrn Negative (NEGATIVE) Urine Cocaine Screen Negative (NEGATIVE) U Marijuana (THC) Screen Negative (NEGATIVE) Ethyl Alcohol mg/dL Departure - Departure Time of Disposition: 10:06 Disposition: Home, Self-Care 01 Condition: Poor Clinical Impression: Hyponatremia Acute renal failure Qualifiers: Acute renal failure type: unspecified Qualified Code(s): N17.9 - Acute kidney failure, unspecified Hematuria Qualifiers: Hematuria type: unspecified type Qualified Code(s): R31.9 - Hematuria, unspecified Cirrhosis Qualifiers: Hepatic cirrhosis type: unspecified hepatic cirrhosis Ascites presence: with ascites Qualified Code(s): K74.60 - Unspecified cirrhosis of liver Altered mental state Qualifiers: Altered mental status type: unspecified Qualified Code(s): R41.82 - Altered mental status, unspecified - Discharge Information Forms: Interfacility Transfer EMTALA Care Plan Goals: Discussed the patient's history, examination and lab results with Dr. Gustafson (Hospitalist with [facility] in [place]). Dr. Gustafson accepted the patient for continued evaluation and management. The patient will be transported by [facility]. - My Orders Last 24 Hours: My Active Orders 09/12/17 08:30 CULTURE BLOOD [BC] Stat 09/12/17 09:25 DRUG SCREEN URINE BIORAD [URCHEM] Stat UA W/MICROSCOPIC [URIN] Stat - Assessment/Plan Last 24 Hours: My Active Orders 09/12/17 08:30 CULTURE BLOOD [BC] Stat 09/12/17 09:25 DRUG SCREEN URINE BIORAD [URCHEM] Stat UA W/MICROSCOPIC [URIN] Stat
[2017-09-12 09:01] LABS: ACETAMINOPHEN < 10
[2017-09-12 10:17] VITALS: BP 101/45
== END 2017-09-12 10:14 | disposition home or self-care (01) ==
LOC: DL.ED 08:13
DX: K74.60 Unspecified cirrhosis of liver (principal); R41.82 Altered mental status, unspecified; N17.9 Acute kidney failure, unspecified; R31.9 Hematuria, unspecified; I10 Essential (primary) hypertension; E78.00 Pure hypercholesterolemia, unspecified; E03.9 Hypothyroidism, unspecified; E66.9 Obesity, unspecified; E11.40 Type 2 diabetes mellitus with diabetic neuropathy, unspecified; Z88.8 Allergy status to other drugs, medicaments and biological substances; Z79.899 Other long term (current) drug therapy; Z88.6 Allergy status to analgesic agent; Z87.891 Personal history of nicotine dependence
CPT/HCPCS: 36415; 80053; 80305; 81001; 82140; 82150; 83605; 83690; 83735; 83880; 85025; 87040; 99285; G0480

== ENCOUNTER 2017-10-12 16:56 | Emergency (ER) | payer MEDICARE, OTHER ==
[~2017-10-12 16:56] MED LIST changes: -Dextrose 5%-0.45% NaCl 1,000 ML IV SCH
[2017-10-12 18:07] VITALS: BP 93/37
--- NOTE | 2017-10-12 19:06 | EDM.PDOC ---
ED HPI GENERAL MEDICAL PROBLEM - General Chief Complaint: General Stated Complaint: CONFUSION Time Seen by Provider: 10/12/17 16:56 Source of Information: Reports: Patient, EMS, EMS Notes Reviewed, Family, RN, RN Notes Reviewed History Limitations: Reports: Altered Mental Status - History of Present Illness INITIAL COMMENTS - FREE TEXT/NARRATIVE: Pt presents to the ER per [facility]. EMS reports the patient has not been compliant with her medications and has gotten increasingly more confused and lethargic. Patient has a history of liver failure. Family states that they were told by her regular provider that she did not have to take her medications if she didn' t want to. Although, when asked, the family states that they want everything possible done for the patient. Onset: Gradual - Related Data Allergies Allergy/AdvReac Type Severity Reaction Status Date / Time acetaminophen Allergy Other Verified 09/12/17 08:31 aspirin Allergy Other Verified 09/12/17 08:31 clopidogrel [From Plavix] Allergy Other Verified 09/12/17 08:31 ibuprofen Allergy Other Verified 09/12/17 08:31 Home Meds: Home Meds Polyvinyl Alcohol/Povidone [Artificial Tears Drops] 1 drop EYEBOTH BID PRN 03/04 [History] Pantoprazole Sodium 40 mg PO BIDMEALS 03/10/17 [History] Spironolactone [Aldactone] 150 mg PO DAILY 03/10/17 [History] Hydroxypropyl Cellulose [Lacrisert] 1 each EYEBOTH DAILY 07/29/17 [History] Levothyroxine 112 mcg PO DAILY 07/29/17 [History] cycloSPORINE [Restasis] 1 drop EYEBOTH BID 07/29/17 [History] Hydrocortisone [Hydrocortisone 2.5% Crm] 1 applic TOP QID PRN 08/28/17 [History] Ursodiol 500 mg PO BID 08/28/17 [History] traMADol [Ultram] 25 mg PO Q6HR PRN 08/28/17 [History] Furosemide 80 mg PO BIDAC 30 Days #60 tablet 09/07/17 [Rx] Lactulose [Cephulac] 20 gm PO BID 30 Days #2 cup 09/07/17 [Rx] Sodium Chloride 1 gm PO TID 30 Days #90 tablet 09/07/17 [Rx] Zolpidem [Ambien] 5 mg PO BEDTIME PRN 15 Days #15 tablet 09/07/17 [Rx] Past Medical History HEENT History: Reports: Cataract, Impaired Vision, Other (See Below) Other HEENT History: RETINAL DETACHMENT - BILATERAL EYES; WEARS GLASSES Cardiovascular History: Reports: CAD, High Cholesterol, Hypertension Respiratory History: Reports: Asthma, SOB Gastrointestinal History: Reports: Cirrhosis, Other (See Below) Other Gastrointestinal History: Faatty liver. 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 Immunologic History: Reports: None Oncologic (Cancer) History: Reports: Other (See Below) Other Oncologic History: PRECANCEROUS CERVICAL POLYP REMOVED Dermatologic History: Reports: Other (See Below) Other Dermatologic History: TINEA PEDIS - Infectious Disease History Infectious Disease History: Reports: Chicken Pox, Measles - Past Surgical History Head Surgeries/Procedures: Reports: None HEENT Surgical History: Reports: Detached Retina Cardiovascular Surgical History: Reports: Other (See Below) Other Cardiovascular Surgeries/Procedures: CARDIAC CATHETERIZATION Respiratory Surgical History: Reports: None GI Surgical History: Reports: Cholecystectomy, Colonoscopy, EGD Female Surgical History: Reports: Tubal Ligation Neurological Surgical History: Reports: None Musculoskeletal Surgical History: Reports: Other (See Below) Other Musculoskeletal Surgeries/Procedures:: RIGHT ANKLE SURGERY; RIGHT BUNIOECTOMY Oncologic Surgical History: Reports: None Dermatological Surgical History: Reports: Skin Graft Social & Family History - Family History Family Medical History: Noncontributory - Tobacco Use Smoking Status *Q: Current Status Unknown - Caffeine Use Caffeine Use: Reports: Soda ED ROS GENERAL - Review of Systems Review Of Systems: ROS reveals no pertinent complaints other than HPI. ED EXAM, GENERAL - Physical Exam Exam: See Below Exam Limited By: No Limitations General Appearance: No Apparent Distress, Lethargic Eye Exam: Bilateral Eye: Other (scleral icterus) Ears: Normal External Exam, Hearing Grossly Normal Nose: Normal Inspection Throat/Mouth: Normal Inspection, Normal Voice, No Airway Compromise Head: Atraumatic, Normocephalic Neck: Normal Inspection, Supple, Non-Tender, Full Range of Motion Respiratory/Chest: No Respiratory Distress, No Accessory Muscle Use, Chest Non- Tender, Decreased Breath Sounds, Crackles (bases bilaterally) Cardiovascular: Regular Rate, Rhythm Peripheral Pulses: 1+: Radial (L), Radial (R) GI/Abdominal: Normal Bowel Sounds, Soft, Non-Tender, Other (edematous) (Female) Exam: Deferred Rectal (Female) Exam: Deferred Back Exam: Normal Inspection, Full Range of Motion Extremities: Pedal Edema, Other (All extremities pitting edema +3) Neurological: Confused, Slow to Respond, Memory Loss Remote Events, Memory Loss Recent Events Psychiatric: Flat Affect Skin Exam: Jaundice, Other (Open sores all over the body) Lymphatic: No Adenopathy Course - Vital Signs Last Recorded V/S: Last Vital Signs Temp 97.3 F 10/12/17 16:57 Pulse 101 H 10/12/17 16:57 Resp 16 10/12/17 16:57 BP 93/37 L 10/12/17 16:57 Pulse Ox 95 10/12/17 16:57 - Orders/Labs/Meds Orders: Active Orders 24 hr Category Date Time Status EKG Documentation Completion [RC] STAT Care 10/12/17 16:55 Active Insert Rausch Catheter [Insert Urinary Catheter] [OM.PC] Care 10/12/17 17:15 Ordered Q24H Peripheral IV Care [RC] . DIRECTED Care 10/12/17 16:55 Active Urinary Catheter Assessment [RC] ASDIRECTED Care 10/12/17 17:01 Active CULTURE BLOOD [BC] Stat Lab 10/12/17 19:56 Results DRUG SCREEN URINE BIORAD [URCHEM] Stat Lab 10/12/17 17:46 Ordered UA W/MICROSCOPIC [URIN] Stat Lab 10/12/17 17:46 Ordered Blood Culture x2 Reflex Set [OM.PC] Stat Oth 10/12/17 16:55 Ordered Peripheral IV Insertion Adult [OM.PC] Stat Oth 10/12/17 16:55 Ordered Labs: Laboratory Tests 10/12/17 10/12/17 10/12/17 Range/Units 17:46 17:46 19:56 WBC 14.9 H (5.0-10.0) 10^3/uL RBC 2.46 L (4.2-5.4) 10^6/uL Hgb 9.0 L (12.0-16.0) g/dL Hct 25.0 L (37.0-47.0) % MCV 101.6 H D (80-100) fL MCH 36.6 H (27.0-34.0) pg MCHC 36.0 H (33.0-35.0) g/dL Plt Count 100 L D (150-450) 10^3/uL Neut % (Auto) 41.7 L (42.2-75.2) % Lymph % (Auto) 14.5 L (20.5-50.1) % Colbert % (Auto) 12.5 H (2-8) % Eos % (Auto) 31.1 H (1.0-3.0) % Baso % (Auto) 0.2 (0.0-1.0) % Add Manual Diff Yes Neutrophils % (Manual) 50 (42-75) % Lymphocytes % (Manual) 10 L (20-50) % Monocytes % (Manual) 8 (2-8) % Eosinophils % (Manual) 32 H (1-3) % Target Cells 1+ slight Amanda Cells 1+ slight Sodium (135-145) mmol/L Potassium (3.6-5.0) mmol/L Chloride (101-111) mmol/L Carbon Dioxide (21.0-31.0) mmol/L Anion Gap BUN (7-18) mg/dL Creatinine (0.6-1.3) mg/dL Est Cr Clr Drug Dosing Estimated GFR (MDRD) BUN/Creatinine Ratio Glucose (74-105) mg/dL Lactic Acid (0.5-2.2) mmol/L Calcium (8.4-10.2) mg/dl Magnesium (1.8-2.5) mg/dL Total Bilirubin (0.2-1.0) mg/dL AST (10-42) IU/L ALT (10-60) IU/L Alkaline Phosphatase (42-121) IU/L Ammonia (11-35) umol/L Troponin I (0.00-0.02) ng/ml B-Natriuretic Peptide (0-100) pg/ml Total Protein (6.7-8.2) g/dl Albumin (3.2-5.5) g/dl Globulin Albumin/Globulin Ratio Urine Color Saira (YELLOW) Urine Appearance Cloudy (CLEAR) Urine pH 5.0 (5.0-9.0) Ur Specific Van 1.020 (1.005-1.030) Urine Protein 100 H (NEGATIVE) Urine Glucose (UA) Negative (NEGATIVE) Urine Ketones Trace H (NEGATIVE) Urine Occult Blood Moderate H (NEGATIVE) Urine Nitrite Negative (NEGATIVE) Urine Bilirubin Large H (NEGATIVE) Urine Urobilinogen 1.0 (0.2-1.0) mg/dL Ur Leukocyte Esterase Negative (NEGATIVE) Urine RBC 10-20 H /HPF Urine WBC 5-10 H (0-5/HPF) /HPF Ur Epithelial Cells Occasional /HPF Urine Bacteria Few (0-FEW/HPF) /HPF Urine Yeast Few H (0/HPF) /HPF Urine Opiates Screen Negative (NEGATIVE) Ur Oxycodone Screen Negative (NEGATIVE) Urine Methadone Screen Negative (NEGATIVE) Ur Barbiturates Screen Negative (NEGATIVE) U Tricyclic Antidepress Negative (NEGATIVE) Ur Phencyclidine Scrn Negative (NEGATIVE) Ur Amphetamine Screen Negative (NEGATIVE) U Methamphetamines Scrn Negative (NEGATIVE) Urine MDMA Screen Negative (NEGATIVE) U Benzodiazepines Scrn Negative (NEGATIVE) Urine Cocaine Screen Negative (NEGATIVE) U Marijuana (THC) Screen Negative (NEGATIVE) Ethyl Alcohol mg/dL 10/12/17 10/12/17 10/12/17 Range/Units 19:56 19:56 19:56 WBC (5.0-10.0) 10^3/uL RBC (4.2-5.4) 10^6/uL Hgb (12.0-16.0) g/dL Hct (37.0-47.0) % MCV (80-100) fL MCH (27.0-34.0) pg MCHC (33.0-35.0) g/dL Plt Count (150-450) 10^3/uL Neut % (Auto) (42.2-75.2) % Lymph % (Auto) (20.5-50.1) % Colbert % (Auto) (2-8) % Eos % (Auto) (1.0-3.0) % Baso % (Auto) (0.0-1.0) % Add Manual Diff Neutrophils % (Manual) (42-75) % Lymphocytes % (Manual) (20-50) % Monocytes % (Manual) (2-8) % Eosinophils % (Manual) (1-3) % Target Cells [place] Cells Sodium 126 L (135-145) mmol/L Potassium 3.9 (3.6-5.0) mmol/L Chloride 94 L (101-111) mmol/L Carbon Dioxide 20.0 L (21.0-31.0) mmol/L Anion Gap 15.9 BUN 30 H (7-18) mg/dL Creatinine 1.9 H (0.6-1.3) mg/dL Est Cr Clr Drug Dosing TNP Estimated GFR (MDRD) 27 BUN/Creatinine Ratio 15.78 Glucose 91 (74-105) mg/dL Lactic Acid 5.0 H (0.5-2.2) mmol/L Calcium 9.2 (8.4-10.2) mg/dl Magnesium 1.6 L (1.8-2.5) mg/dL Total Bilirubin 15.6 H (0.2-1.0) mg/dL AST 43 H (10-42) IU/L ALT 24 (10-60) IU/L Alkaline Phosphatase 98 (42-121) IU/L Ammonia 51 H (11-35) umol/L Troponin I < 0.02 (0.00-0.02) ng/ml B-Natriuretic Peptide 14 (0-100) pg/ml Total Protein 4.4 L (6.7-8.2) g/dl Albumin 2.5 L (3.2-5.5) g/dl Globulin 1.9 Albumin/Globulin Ratio 1.32 Urine Color (YELLOW) Urine Appearance (CLEAR) Urine pH (5.0-9.0) Ur Specific Van (1.005-1.030) Urine Protein (NEGATIVE) Urine Glucose (UA) (NEGATIVE) Urine Ketones (NEGATIVE) Urine Occult Blood (NEGATIVE) Urine Nitrite (NEGATIVE) Urine Bilirubin (NEGATIVE) Urine Urobilinogen (0.2-1.0) mg/dL Ur Leukocyte Esterase (NEGATIVE) Urine RBC /HPF Urine WBC (0-5/HPF) /HPF Ur Epithelial Cells /HPF Urine Bacteria (0-FEW/HPF) /HPF Urine Yeast (0/HPF) /HPF Urine Opiates Screen (NEGATIVE) Ur Oxycodone Screen (NEGATIVE) Urine Methadone Screen (NEGATIVE) Ur Barbiturates Screen (NEGATIVE) U Tricyclic Antidepress (NEGATIVE) Ur Phencyclidine Scrn (NEGATIVE) Ur Amphetamine Screen (NEGATIVE) U Methamphetamines Scrn (NEGATIVE) Urine MDMA Screen (NEGATIVE) U Benzodiazepines Scrn (NEGATIVE) Urine Cocaine Screen (NEGATIVE) U Marijuana (THC) Screen (NEGATIVE) Ethyl Alcohol < 5 mg/dL Meds: Medications Discontinued Medications Generic Name Dose Route Start Last Admin Trade Name Freq PRN Reason Stop Dose Admin Sodium Chloride 10 ml 10/12/17 16:55 Saline Flush FLUSH ASDIRECTED PRN Keep Vein Open - Re-Assessments/Exams Free Text/Narrative Re-Assessment/Exam: 10/13/17 07:07 Discussed Pt case with Dr. Moyer in the ER at [facility]. It was explained to him that IV access had not been obtained. He stated understanding and agreed to accept the patient. Departure - Departure Time of Disposition: 20:10 Disposition: DC/Tfer to Acute Hospital 02 Condition: Poor, Serious Clinical Impression: Liver disease, Jaundice Cirrhosis Qualifiers: Hepatic cirrhosis type: unspecified hepatic cirrhosis Ascites presence: with ascites Qualified Code(s): K74.60 - Unspecified cirrhosis of liver Liver failure Qualifiers: Liver failure chronicity: unspecified chronicity Hepatic coma status: without hepatic coma Qualified Code(s): K72.90 - Hepatic failure, unspecified without coma Altered mental state Qualifiers: Altered mental status type: unspecified Qualified Code(s): R41.82 - Altered mental status, unspecified - Discharge Information Forms: ED Department Discharge, Interfacility Transfer EMTALA - My Orders Last 24 Hours: My Active Orders 10/12/17 16:55 EKG Documentation Completion [RC] STAT Peripheral IV Care [RC] . DIRECTED Blood Culture x2 Reflex Set [OM.PC] Stat Peripheral IV Insertion Adult [OM.PC] Stat 10/12/17 17:01 Urinary Catheter Assessment [RC] ASDIRECTED 10/12/17 17:15 Insert Rausch Catheter [Insert Urinary Catheter] [OM.PC] Q24H 10/12/17 17:46 DRUG SCREEN URINE BIORAD [URCHEM] Stat UA W/MICROSCOPIC [URIN] Stat 10/12/17 19:56 CULTURE BLOOD [BC] Stat - Assessment/Plan Last 24 Hours: My Active Orders 10/12/17 16:55 EKG Documentation Completion [RC] STAT Peripheral IV Care [RC] . DIRECTED Blood Culture x2 Reflex Set [OM.PC] Stat Peripheral IV Insertion Adult [OM.PC] Stat 10/12/17 17:01 Urinary Catheter Assessment [RC] ASDIRECTED 10/12/17 17:15 Insert Rausch Catheter [Insert Urinary Catheter] [OM.PC] Q24H 10/12/17 17:46 DRUG SCREEN URINE BIORAD [URCHEM] Stat UA W/MICROSCOPIC [URIN] Stat 10/12/17 19:56 CULTURE BLOOD [BC] Stat
[2017-10-12 20:31] LABS: CHLORIDE,CL 94 mmol/L (101-111); SODIUM,NA 126 mmol/L (135-145)
--- NOTE | 2017-10-14 12:54 | EKG ---
10/12/2017 - REGINO JIMENEZYL EAGLE - FINDINGS: A 12-lead EKG shows normal sinus rhythm with sinus tachycardia with heart rate of 101. No significant ST elevation or ST depression noted on this 12-lead EKG except for nonspecific ST-T wave changes with T-wave inversions noted on lead V2 and V3. [facility] /[id number]
== END 2017-10-12 20:10 ==
LOC: DL.ED 16:56
DX: K72.90 Hepatic failure, unspecified without coma (principal); K74.60 Unspecified cirrhosis of liver; R41.82 Altered mental status, unspecified; E78.00 Pure hypercholesterolemia, unspecified; I10 Essential (primary) hypertension; E11.9 Type 2 diabetes mellitus without complications; E03.9 Hypothyroidism, unspecified; Z88.6 Allergy status to analgesic agent; Z88.8 Allergy status to other drugs, medicaments and biological substances; Z79.899 Other long term (current) drug therapy
CPT/HCPCS: 36415; 80053; 80305; 81001; 82140; 83605; 83735; 83880; 84484; 85025; 87040; 93005; 93010; 99285; G0480